=== PATIENT | female | born 1935 | race Caucasian/White ===

== ENCOUNTER 2016-06-22 15:07 | Emergency (ER) | payer MEDICARE ==
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
[2016-06-22 16:13] VITALS: BP 116/70; PULSE 70; O2SAT 95
== END 2016-06-22 16:12 | disposition home or self-care (01) ==
LOC: ED 15:07
DX: R10.13 Epigastric pain (principal); R11.2 Nausea with vomiting, unspecified; Z79.899 Other long term (current) drug therapy
CPT/HCPCS: 99282

== ENCOUNTER 2016-07-18 21:16 | Emergency (ER) | payer MEDICARE ==
[2016-07-18] MEDS ORDERED: ROCEPHIN 1 Gm-D5w 50 ml Bag** 50 ML IV ONE ×2 (22:07→22:30)
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
[2016-07-18] MEDS ORDERED: Sodium Chloride 0.9% 1000 ML 1,000 ML IV SCH (22:15)
[2016-07-18] MEDS ORDERED: GI COCKTAIL 60ML (Belladonn/Phenobarb/Lidoc PO ONE (22:19)
[2016-07-18] MEDS ORDERED: PROTONIX 40 MG IV IV ONE ×2 (22:19→22:28)
[2016-07-18] MEDS ORDERED: Ativan 2 MG/1 ML VIAL IV ONE (22:21)
[2016-07-18] MEDS ORDERED: Ativan 2 MG/1 ML VIAL ONE (22:28)
[2016-07-18] MEDS ORDERED: MAALOX ES 30 ML UNIT DOSE ONE (22:29)
[2016-07-18] MEDS ORDERED: Sodium Chloride 0.9% 1000 ML 1,000 ML ONE (22:29)
[2016-07-18] MEDS ORDERED: XYLOCAINE HCl Viscous ONE (22:29)
[2016-07-18] MEDS ORDERED: Donnatol Liquid ONE (22:30)
[2016-07-18 22:40] LABS: BASOPHIL % 0.4 % (0.0-0.4); Eosinophil % 1.4 % (0.00-5.0); Lymphocytes % 30.6 % (24.0-44.0); Mean Cell Volume 92.2 fl (78-100); Mean Corpuscular Hemoglobin 28.7 pg (26-32); Mean Platelet Volume 9.8 fl (6-9.5); Monocytes % 8.6 % (0.0-12.0); Platelet Count 230 K/mm3 (150-450); Red Cell Distribution Width 15.4 % (11.5-14.0); White Blood Count 5.7 K/mm3 (4.0-10.5)
[2016-07-18 22:58] LABS: Carbon Dioxide 26.7 mEq/L (21-32)
[2016-07-18 23:07] LABS: Potassium 4.2 mEq/L (3.5-5.1)
[2016-07-18 23:10] LABS: ANION GAP 15.5 MEQ/L (5-15)
[2016-07-19 00:09] VITALS: BP 135/78; PULSE 75; O2SAT 94
--- NOTE | 2016-07-19 09:18 | XRAY ---
Indication: Short of breath. Comparison: May 30, 2016 Portable chest unchanged again with scattered bilateral atelectasis/scarring greatest in the lung bases. No focal infiltrate, consolidation, or large effusion. Heart is not enlarged. Bony thorax intact again with osteopenia and degenerative changes. Comparison: Stable nonacute chest again with chronic features.
== END 2016-07-18 23:58 | disposition home or self-care (01) ==
LOC: ED 21:16
DX: J20.9 Acute bronchitis, unspecified (principal); F41.9 Anxiety disorder, unspecified; I10 Essential (primary) hypertension; E11.9 Type 2 diabetes mellitus without complications; J44.9 Chronic obstructive pulmonary disease, unspecified; E78.00 Pure hypercholesterolemia, unspecified; J43.9 Emphysema, unspecified; R05 Cough
CPT/HCPCS: 36000; 36415; 71010; 80048; 82150; 83690; 85025; 96360; 96361; 96365; 96374; 96375; 99283; J0696; J2060

== ENCOUNTER 2017-01-14 18:47 | Emergency (ER) | payer MEDICARE ==
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
[2017-01-14 20:09] LABS: Collection Type CLEAN CATCH
[2017-01-14 20:10] LABS: ADD URINE CULTURE? NO (NO); Bilirubin NEGATIVE (NEGATIVE); Blood NEGATIVE Ery/ul (0-5); COMPLETE URINE MICROSCOPIC? NO; Glucose NEGATIVE (NEGATIVE); Leukocyte Esterase NEGATIVE (NEGATIVE)
[2017-01-14 20:16] LABS: BASOPHIL % 0.5 % (0.0-0.4); Eosinophil % 0.9 % (0.00-5.0); Lymphocytes % 41.2 % (24.0-44.0); Mean Cell Volume 91.4 fl (78-100); Mean Corpuscular Hemoglobin 28.8 pg (26-32); Mean Platelet Volume 9.4 fl (6-9.5); Monocytes % 14.4 % (0.0-12.0); Platelet Count 191 K/mm3 (150-450); Red Blood Count 4.44 M/mm3 (4.1-5.4); Red Cell Distribution Width 15.5 % (11.5-14.0); White Blood Count 4.4 K/mm3 (4.0-10.5)
[2017-01-14 20:50] LABS: ALBUMIN 3.7 g/dL (3.4-5.0); ANION GAP 11.9 MEQ/L (5-15); BILIRUBIN,TOTAL 0.3 mg/dL (0.2-1.0); Carbon Dioxide 27.4 mEq/L (21-32); Potassium 3.9 mEq/L (3.5-5.1); Total Protein 7.1 gm/dL (6.4-8.2)
[2017-01-14 22:19] VITALS: BP 125/75; PULSE 74; O2SAT 100
== END 2017-01-14 22:18 | disposition home or self-care (01) ==
LOC: ED 18:47
DX: E86.0 Dehydration (principal); N19 Unspecified kidney failure; E11.9 Type 2 diabetes mellitus without complications; I10 Essential (primary) hypertension; F41.9 Anxiety disorder, unspecified; E03.9 Hypothyroidism, unspecified; Z79.899 Other long term (current) drug therapy; E05.90 Thyrotoxicosis, unspecified without thyrotoxic crisis or storm
CPT/HCPCS: 36415; 80053; 81002; 83605; 83880; 84484; 85025; 99283

== ENCOUNTER 2017-07-03 13:11 | Emergency (ER) | payer MEDICARE ==
[2017-07-03] MEDS ORDERED: MOTRIN 600 MG PO ONE (14:01)
[2017-07-03] MEDS ORDERED: MOTRIN 600 MG ONE (14:08)
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
[2017-07-03 14:24] LABS: BASOPHIL % 0.4 % (0.0-0.4); Basophil (Absolute #) 0.02 (0-0.4); Eosinophil % 1.6 % (0.00-5.0); Eosinophil (Absolute #) 0.09 (0-0.5); Granulocyte Absolute (ANC) 3.25 (1.4-6.9); Granulocytes % 59.2 % (36.0-66.0); Hematocrit 40.5 % (35-47); Hemoglobin 12.6 gm/dl (12.0-16.0); Lymphocyte (Absolute #) 1.64 (1.0-4.6); Lymphocytes % 29.9 % (24.0-44.0); Mean Cell Volume 93.3 fl (78-100); Mean Corpuscular Hgb Concent. 31.1 g/dl (32-36); Mean Platelet Volume 8.9 fl (6-9.5); Monocyte (Absolute #) 0.49 (0.0-1.3); Monocytes % 8.9 % (0.0-12.0); Platelet Count 194 K/mm3 (150-450); Red Blood Count 4.34 M/mm3 (4.1-5.4); White Blood Count 5.5 K/mm3 (4.0-10.5)
--- NOTE | 2017-07-03 14:53 | XRAY ---
Indication: Knee pain and weakness. No known injury. Comparison: None 2 views of the right lower leg demonstrates mild knee degenerative changes reported separately. No other bony, articular, or soft tissue abnormalities.
--- NOTE | 2017-07-03 14:57 | XRAY ---
Indication: Knee pain and weakness. No known injury. Comparison: None 3 views of the right knee demonstrates minimal medial degenerative joint space narrowing, tiny patellar spurring, and minimal posterior vascular calcifications. No other bony, articular, or soft tissue abnormalities.
[2017-07-03 14:58] LABS: ANION GAP 12.2 MEQ/L (5-15); Calcium 9.2 mg/dL (8.5-10.1); Carbon Dioxide 28.9 mEq/L (21-32); Creatinine 1 1.36 mg/dl (0.55-1.30); MAGNESIUM 1.9 mg/dL (1.8-2.4); Potassium 4.7 mEq/L (3.5-5.1); Uric Acid 6.7 mg/dL (2.6-6.0)
[2017-07-03 15:48] VITALS: BP 155/75; PULSE 64; O2SAT 94
== END 2017-07-03 16:04 | disposition home or self-care (01) ==
LOC: ED 13:11
DX: M10.9 Gout, unspecified (principal); Z79.899 Other long term (current) drug therapy
CPT/HCPCS: 36415; 73562; 73590; 80048; 83735; 84550; 85025; 99284; A9270-GY

== ENCOUNTER 2017-07-28 01:03 | Emergency (ER) | payer MEDICARE ==
--- NOTE | 2017-07-28 01:29 | ERPHSYRPT ---
- History of Present Illness Time Seen by Provider: 07/28/17 01:15 Source: patient Exam Limitations: no limitations Patient Subjective Stated Complaint: Anxiety and Shaking Triage Nursing Assessment: Pt presents to the ED with complaints of shaking from abdomen to toes. Pt states onset approximately 90 minutes prior to arrival. Pt states "I think I had a panic attack." Pt states hx of anxiety and states "this is the same thing." No distress noted, skin pwd, A&O x4. Physician History: FOR THE PAST 90 MINUTES PT HAS HAD SHAKINESS FROM THE ABDOMEN TO THE TOES. PT STATES SHE HAS HAD THIS BEFORE AND IT HAS BEEN DUE TO ANXIETY. PT DENIES CHEST PAIN, SHORTNESS OF AIR, FEVER, COUGH, ABDOMINAL PAIN, NAUSEA, VOMITING, WEAKNESS , NUMBNESS. Allergies/Adverse Reactions: codeine [Codeine] Allergy (Severe, Verified 07/03/17 13:33) Hives clarithromycin Allergy (Intermediate, Verified 07/03/17 13:33) Nausea Home Medications: Atorvastatin Calcium 20 mg PO HS 02/22/13 [History] Levothyroxine Sodium 50 Mcg [Synthroid 50 Mcg] 50 mcg PO DAILY 02/22/13 [ History] Losartan Potassium 50 mg [Cozaar 50 MG] 50 mg PO LUNCH 02/22/13 [History] Albuterol Sulfate [Proair Hfa] 2 puff IH QIDPRN PRN 06/05/14 [History] Clopidogrel Bisulfate 75 mg [PLAVIX 75 MG Tablet] 75 mg PO DAILY 10/12/14 [History] Bumetanide 0.5 mg PO DAILY 04/06/16 [History] Mirtazapine 15 mg PO HS 04/06/16 [History] Ranitidine HCl 150 mg PO BID 07/18/16 [History] Alprazolam 1 mg [Xanax 1 mg] 1 mg PO BID 11/07/16 [History] Denosumab 60 mg [Prolia 60 mg Injection] 1 units SQ UD 05/14/17 [History] PANTOPRAZOLE 40 mg Tablet [Protonix 40MG Tablet] 1 tab PO DAILY 05/14/17 [ History] Pioglitazone HCl [Actos] 1 tab PO DAILY 05/14/17 [History] Hx Tetanus, Diphtheria Vaccination/Date Given: No Hx Influenza Vaccination/Date Given: Yes Hx Pneumococcal Vaccination/Date Given: No Immunizations Up to Date: No - Review of Systems Constitutional: No Fever Respiratory: No Cough, No Dyspnea Cardiac: No Chest Pain Abdominal/Gastrointestinal: No Abdominal Pain, No Nausea, No Vomiting Neurological: Other (SHAKINESS), No Focal Weakness, No Sensory Changes Psychological: Anxiety All Other Systems: Reviewed and Negative - Past Medical History Pertinent Past Medical History: Yes Neurological History: Stroke ENT History: Cataracts Cardiac History: High Cholesterol, Hypertension Respiratory History: COPD, Emphysema Endocrine Medical History: Diabetes Type II, Hyperthyroidism Musculoskeletal History: Arthritis, Osteoporosis GI Medical History: Ulcer, Other History: No Pertinent History Psycho-Social History: Anxiety, Depression Female Reproductive Disorders: No Pertinent History Other Medical History: Pt stated she "never had a blockage in my neck, it was a sun stroke years ago". bronchitis - Past Surgical History Past Surgical History: Yes Neuro Surgical History: No Pertinent History Cardiac: No Pertinent History Respiratory: No Pertinent History Gastrointestinal: No Pertinent History Genitourinary: No Pertinent History Musculoskeletal: No Pertinent History Female Surgical History: Tubal Ligation Other Surgical History: Bladder sx et cataract sx - Social History Smoking Status: Former smoker How long have you smoked: 42 Exposure to second hand smoke: Yes Alcohol Use: None Drug Use: none Patient Lives Alone: No - Female History Hx Now: No - Nursing Vital Signs Nursing Vital Signs: Initial Vital Signs Temperature 97.6 F 07/28/17 01:16 Pulse Rate 85 07/28/17 01:16 Respiratory Rate 20 07/28/17 01:16 Blood Pressure 164/85 07/28/17 01:16 O2 Sat by Pulse Oximetry 93 L 07/28/17 01:16 Pain Scale Pain Intensity 0 - Physical Exam General Appearance: alert, anxiety Eye Exam: PERRL/EOMI Ears, Nose, Throat Exam: TMs normal, pharynx normal, moist mucous membranes Neck Exam: normal inspection Respiratory Exam: lungs clear Cardiovascular Exam: normal heart sounds Gastrointestinal/Abdomen Exam: soft, normal bowel sounds Back Exam: normal range of motion Extremity Exam: normal range of motion Neurologic Exam: alert, cooperative, sensation nml, other (NO BABINSKI PRESENT) , No motor deficits, No motor weakness Skin Exam: warm, dry SpO2 Interpretation: normal SpO2: 93 Oxygen Delivery: Room Air - Course Nursing assessment & vital signs reviewed: Yes Ordered Tests: Active Orders 24 hr Category Date Time Status CBC W DIFF Stat Lab 07/28/17 01:42 Completed CMP Stat Lab 07/28/17 01:42 Completed CULTURE,URINE Stat Lab 07/28/17 01:42 Received MAGNESIUM Stat Lab 07/28/17 01:42 Completed T4 Stat Lab 07/28/17 01:42 Received TSH [TSH, 3RD Generation] Stat Lab 07/28/17 01:42 Received UA W/ MICROSCOPIC Stat Lab 07/28/17 01:42 Completed Medication Summary Discontinued Medications Generic Name Dose Route Start Last Admin Trade Name Freq PRN Reason Stop Dose Admin Ceftriaxone Sodium 1,000 mg 07/28/17 02:21 Rocephin 1000 Mg Inj IM 07/28/17 02:22 STAT ONE Diazepam 5 mg 07/28/17 01:23 07/28/17 01:36 Valium 5 Mg PO 07/28/17 01:24 5 mg STAT ONE Administration Diazepam Confirm 07/28/17 01:36 Valium 5 Mg Administered 07/28/17 01:37 Dose 5 mg .ROUTE .Pumpic-MED ONE Lab/Rad Data: Laboratory Result Diagrams 07/28/17 01:42 07/28/17 01:42 Laboratory Results 07/28/17 07/28/17 07/28/17 Range/Units 01:42 01:42 01:42 WBC 5.3 (4.0-10.5) K/mm3 RBC 4.24 (4.1-5.4) M/mm3 Hgb 12.3 (12.0-16.0) gm/dl Hct 39.5 (35-47) % MCV 93.2 (78-100) fl MCH 29.0 (26-32) pg MCHC 31.1 L (32-36) g/dl RDW 15.5 H (11.5-14.0) % Plt Count 246 (150-450) K/mm3 MPV 9.2 (6-9.5) fl Gran % 56.4 (36.0-66.0) % Lymphocytes % 32.0 (24.0-44.0) % Monocytes % 8.6 (0.0-12.0) % Eosinophils % 2.6 (0.00-5.0) % Basophils % 0.4 (0.0-0.4) % Basophils # 0.02 (0-0.4) Sodium 138 (136-145) mEq/L Potassium 4.9 (3.5-5.1) mEq/L Chloride 105 (98-107) mEq/L Carbon Dioxide 27.4 (21-32) mEq/L Anion Gap 10.9 (5-15) MEQ/L BUN 29 H (9-20) mg/dL Creatinine 1.78 H (0.55-1.30) mg/dl Estimated GFR 29 ML/MIN Glucose 123 H (70-110) MG/DL Calcium 8.8 (8.5-10.1) mg/dL Magnesium 2.4 (1.8-2.4) mg/dL Total Bilirubin 0.30 (0.2-1.0) mg/dL AST 21 (15-37) U/L ALT 25 (12-78) U/L Alkaline Phosphatase 79 (46-116) U/L Serum Total Protein 7.3 (6.4-8.2) gm/dL Albumin 3.3 L (3.4-5.0) g/dL Ur Collection Type VOID Urine Color YELLOW (YELLOW) Urine Appearance HAZY (CLEAR) Urine pH 6.0 (5-6) Ur Specific [place] 1.015 (1.005-1.025) Urine Protein NEGATIVE (Negative) Urine Ketones NEGATIVE (NEGATIVE) Urine Blood TRACE NON-HEM (0-5) Jaylan/ul Urine Nitrite NEGATIVE (NEGATIVE) Urine Bilirubin NEGATIVE (NEGATIVE) Urine Urobilinogen NORMAL (0-1) mg/dL Ur Leukocyte Esterase 1+ (NEGATIVE) Urine Microscopic RBC 10-15 (0-2) /HPF Urine Microscopic WBC 2-5 (0-5) /HPF Ur Epithelial Cells MANY (FEW) /HPF Urine Bacteria MODERATE (NEGATIVE) /HPF Hyaline Casts 0-2 (0-2) /LPF Urine Mucus SLIGHT (NEGATIVE) /HPF Urine Culture Reflexed YES (NO) Urine Glucose NEGATIVE (NEGATIVE) mg/dL Specimen Received 07/28/17 0150 - Departure Time of Disposition: 02:29 Departure Disposition: Home Clinical Impression: UTI, ANXIETY Condition: Stable Critical Care Time: No Referrals: SUAD CELESTE [Primary Care Provider] - Instructions: Urinary Tract Infection, Adult (DC) Additional Instructions: FOLLOW UP WITH PRIVATE DOCTOR TOMORROW. Prescriptions: Smz/Tmp Ds Tablet [Bactrim Ds Tablet] 1 udtab PO BID #20 tablet
[2017-07-28] MEDS: Valium 5 MG PO ONE (01:36)
[2017-07-28] MEDS ORDERED: Valium 5 MG ONE (01:36)
[2017-07-28 01:47] LABS: BASOPHIL % 0.4 % (0.0-0.4); Basophil (Absolute #) 0.02 (0-0.4); Eosinophil % 2.6 % (0.00-5.0); Eosinophil (Absolute #) 0.14 (0-0.5); Granulocyte Absolute (ANC) 3.01 (1.4-6.9); Granulocytes % 56.4 % (36.0-66.0); Hematocrit 39.5 % (35-47); Hemoglobin 12.3 gm/dl (12.0-16.0); Lymphocyte (Absolute #) 1.71 (1.0-4.6); Mean Cell Volume 93.2 fl (78-100); Mean Corpuscular Hgb Concent. 31.1 g/dl (32-36); Mean Platelet Volume 9.2 fl (6-9.5); Monocyte (Absolute #) 0.46 (0.0-1.3); Monocytes % 8.6 % (0.0-12.0); Platelet Count 246 K/mm3 (150-450); Red Blood Count 4.24 M/mm3 (4.1-5.4); Red Cell Distribution Width 15.5 % (11.5-14.0); White Blood Count 5.3 K/mm3 (4.0-10.5)
[2017-07-28 02:06] LABS: Appearance HAZY (CLEAR); Bilirubin NEGATIVE (NEGATIVE); Glucose NEGATIVE (NEGATIVE); Ketones NEGATIVE (NEGATIVE); Leukocyte Esterase 1+ (NEGATIVE); Nitrite NEGATIVE (NEGATIVE); Protein,Urine Dip NEGATIVE (Negative); Specific Gravity 1.015 (1.005-1.025); Urobilinogen NORMAL mg/dL (0-1)
[2017-07-28 02:07] LABS: Bacteria MODERATE /HPF (NEGATIVE); Blood TRACE NON-HEM Ery/ul (0-5); Epithelial Cells MANY /HPF (FEW); Hyaline Casts 0-2 /LPF (0-2); Mucus SLIGHT /HPF (NEGATIVE)
[2017-07-28 02:14] LABS: ALBUMIN 3.3 g/dL (3.4-5.0); ANION GAP 10.9 MEQ/L (5-15); BILIRUBIN,TOTAL 0.3 mg/dL (0.2-1.0); Calcium 8.8 mg/dL (8.5-10.1); Carbon Dioxide 27.4 mEq/L (21-32); Creatinine 1 1.78 mg/dl (0.55-1.30); MAGNESIUM 2.4 mg/dL (1.8-2.4); Potassium 4.9 mEq/L (3.5-5.1); Total Protein 7.3 gm/dL (6.4-8.2)
[2017-07-28 02:25] LABS: T4 9.5 UG/DL (4.7-13.3); TSH, 3RD Generation 6.183 mIU/L (0.358-3.740)
[2017-07-28] MEDS ORDERED: Rocephin 1000 MG INJ ONE (02:33)
[2017-07-28] MEDS ORDERED: XYLOCAINE 1% HCL 20 ML MDV ONE (02:33)
[2017-07-28] MEDS: Rocephin 1000 MG INJ IM ONE (02:39)
[2017-07-28 03:13] VITALS: BP 133/75; PULSE 68; O2SAT 96
== END 2017-07-28 03:10 | disposition home or self-care (01) ==
LOC: ED 01:03
DX: N39.0 Urinary tract infection, site not specified (principal); F41.9 Anxiety disorder, unspecified; I10 Essential (primary) hypertension; E11.9 Type 2 diabetes mellitus without complications; E05.90 Thyrotoxicosis, unspecified without thyrotoxic crisis or storm; E78.00 Pure hypercholesterolemia, unspecified; M81.0 Age-related osteoporosis without current pathological fracture; Z79.899 Other long term (current) drug therapy; Z86.73 Personal history of transient ischemic attack (TIA), and cerebral infarction without residual deficits
CPT/HCPCS: 36415; 80053; 81000; 83735; 84436; 84443; 85025; 87086; 96372; 99284; J0696; A9270-GY

== ENCOUNTER 2018-01-07 17:06 | Emergency (ER) | payer MEDICARE ==
[2018-01-07 17:15] VITALS: BP 142/70; PULSE 86; O2SAT 94
--- NOTE | 2018-01-07 17:43 | ERPHSYRPT ---
- History of Present Illness Time Seen by Provider: 01/07/18 17:38 Source: patient, family Exam Limitations: no limitations Patient Subjective Stated Complaint: PT states "I have part of my hearing aid in my left ear. I did not know it was in there until I went to the Dr. today and they found it and tried to get it out and couldn't so they told me to go to the er and get it flushed." Triage Nursing Assessment: Pt alert and oriented X 3, skin pwd Pt ambulates with an upright steady gait, able to speak in clear full sentences. no apparent respiratory distress. Physician History: The patient is an 82-year-old female with her daughter complaining that she may have a piece of her hearing aid stuck in her left ear. She was at her primary care doctor earlier and the doctor attempted to take out a white piece of material that was seen in her left ear. The doctor was unable to remove it and asked the patient to come to the ER for this with removal of the foreign body. The patient has no pain. The doctor told her that the white tip of her hearing aid was stuck in her ear. The patient shows me her hearing aid and it still has the white tip on the hearing aid. Timing/Duration: this morning ENT Location: ear (L) Modifying Factors: Improves With: nothing Associated Symptoms: denies symptoms Allergies/Adverse Reactions: codeine [Codeine] Allergy (Severe, Verified 11/25/17 14:53) Hives clarithromycin Allergy (Intermediate, Verified 11/25/17 14:53) Nausea Home Medications: Atorvastatin Calcium 20 mg PO HS 02/22/13 [History] Levothyroxine Sodium 50 Mcg [Synthroid 50 Mcg] 50 mcg PO DAILY 02/22/13 [ History] Losartan Potassium 50 mg [Cozaar 50 MG] 50 mg PO LUNCH 02/22/13 [History] Albuterol Sulfate [Proair Hfa] 2 puff IH QIDPRN PRN 06/05/14 [History] Clopidogrel Bisulfate 75 mg [PLAVIX 75 MG Tablet] 75 mg PO DAILY 10/12/14 [History] Bumetanide 0.5 mg PO DAILY 04/06/16 [History] Mirtazapine 15 mg PO HS 04/06/16 [History] raNITIdine HCl [Ranitidine HCl] 150 mg PO BID 07/18/16 [History] Alprazolam 1 mg [Xanax 1 mg] 1 mg PO BID 11/07/16 [History] Denosumab 60 mg [Prolia 60 mg Injection] 1 units SQ UD 05/14/17 [History] PANTOPRAZOLE 40 mg Tablet [Protonix 40MG Tablet] 1 tab PO DAILY 05/14/17 [ History] Pioglitazone HCl [Actos] 1 tab PO DAILY 05/14/17 [History] Atorvastatin Calcium 20 mg PO DAILY 11/25/17 [History] Ergocalciferol (Vitamin D2) [Vitamin D] 50,000 unit PO WEEKLY 11/25/17 [History] Potassium Chloride 10 Meq Tab* [Klor Con 10 MEQ] 10 meq PO DAILY 11/25/17 [ History] Hx Tetanus, Diphtheria Vaccination/Date Given: Yes Hx Influenza Vaccination/Date Given: Yes Hx Pneumococcal Vaccination/Date Given: Yes Immunizations Up to Date: Yes - Review of Systems Constitutional: No Fever, No Chills Eyes: No Symptoms Ears, Nose, & Throat: No Symptoms Respiratory: No Cough, No Dyspnea Cardiac: No Chest Pain, No Edema, No Syncope Abdominal/Gastrointestinal: No Abdominal Pain, No Nausea, No Vomiting, No Diarrhea Genitourinary Symptoms: No Dysuria Musculoskeletal: No Back Pain, No Neck Pain Skin: No Rash Neurological: No Dizziness, No Focal Weakness, No Sensory Changes Psychological: No Symptoms Endocrine: No Symptoms Hematologic/Lymphatic: No Symptoms Immunological/Allergic: No Symptoms All Other Systems: Reviewed and Negative - Past Medical History Pertinent Past Medical History: Yes Neurological History: Alzheimer's Disease ENT History: Cataracts Cardiac History: High Cholesterol, Hypertension Respiratory History: COPD Endocrine Medical History: Diabetes Type II Musculoskeletal History: Arthritis, Osteoporosis GI Medical History: Ulcer, Other History: No Pertinent History Psycho-Social History: Anxiety, Depression, Panic Disorder Female Reproductive Disorders: No Pertinent History Other Medical History: Pt stated she "never had a blockage in my neck, it was a sun stroke years ago". bronchitis - Past Surgical History Past Surgical History: Yes Neuro Surgical History: No Pertinent History Cardiac: No Pertinent History Respiratory: No Pertinent History Gastrointestinal: No Pertinent History Genitourinary: No Pertinent History Musculoskeletal: No Pertinent History Female Surgical History: Tubal Ligation Other Surgical History: Bladder sx et cataract sx - Social History Smoking Status: Former smoker How long have you smoked: 42 Exposure to second hand smoke: Yes Alcohol Use: None Drug Use: none Patient Lives Alone: No - Female History Hx Now: No - Nursing Vital Signs Nursing Vital Signs: Initial Vital Signs Temperature 99.5 F 01/07/18 17:11 Pulse Rate 86 01/07/18 17:11 Respiratory Rate 18 01/07/18 17:11 Blood Pressure 142/70 01/07/18 17:11 O2 Sat by Pulse Oximetry 94 L 01/07/18 17:11 Pain Scale Pain Intensity 0 - Physical Exam General Appearance: no apparent distress, alert Eye Exam: bilateral eye: normal inspection Ear Exam: bilateral ear: TM normal (Examination of bilateral eardrums the significant only for some moderate scar tissue formation that appears white. No foreign body is found in either ear. The left ear canal is very clean. There is some mild cerumen in the right ear canal.) Nasal Exam: normal inspection Throat Exam: pharynx normal, moist mucus membranes, No tonsillar exudate Neck Exam: supple Cardiovascular/Respiratory Exam: normal breath sounds, regular rate/rhythm Abdominal Exam: non-tender, soft Neurologic Exam: alert, oriented x 3, sensation nml, No motor deficits Skin Exam: normal color, warm, dry SpO2 Interpretation: normal SpO2: 94 Oxygen Delivery: Room Air - Departure Time of Disposition: 17:41 Departure Disposition: Home Clinical Impression: Normal ear exam Condition: Stable Critical Care Time: No Referrals: SUAD CELESTE [Primary Care Provider] - Additional Instructions: You do not have any foreign body in her left ear canal. You do have scar tissue that appears white on your eardrum. Follow-up with your primary medical doctor as needed.
== END 2018-01-07 17:56 | disposition home or self-care (01) ==
LOC: ED 17:06
DX: Z04.8 Encounter for examination and observation for other specified reasons (principal); I10 Essential (primary) hypertension; E78.00 Pure hypercholesterolemia, unspecified; J44.9 Chronic obstructive pulmonary disease, unspecified; E11.9 Type 2 diabetes mellitus without complications; F41.8 Other specified anxiety disorders; Z79.899 Other long term (current) drug therapy
CPT/HCPCS: 99283

== ENCOUNTER 2018-01-11 14:52 | Emergency (ER) | payer MEDICARE ==
[2018-01-11 15:20] VITALS: O2SAT 93
--- NOTE | 2018-01-11 15:22 | ERPHSYRPT ---
- History of Present Illness Time Seen by Provider: 01/11/18 15:10 Source: patient, family Exam Limitations: no limitations Physician History: The patient is an 82-year-old female with her daughter complaining that she has been weak and shaky for 2 weeks. She denies nausea, vomiting, or diarrhea. However, she complains of some constipation over the past few days. She denies fever or chills. She was taken off her blood pressure medicine a few days ago because she has been having a nagging cough. She was told to take albuterol MDI after each cough to see if that would help. Her past medical history is significant for GERD, diabetes, high cholesterol, and hypothyroidism. Timing/Duration: week(s) (2) Severity: mild Modifying Factors: Improves With: nothing Associated Symptoms: weakness, No nausea, No vomiting, No abdominal pain, No shortness of breath, No malaise Allergies/Adverse Reactions: codeine [Codeine] Allergy (Severe, Verified 01/11/18 15:20) Hives clarithromycin Allergy (Intermediate, Verified 01/11/18 15:20) Nausea Home Medications: Atorvastatin Calcium 20 mg PO HS 02/22/13 [History] Levothyroxine Sodium 50 Mcg [Synthroid 50 Mcg] 50 mcg PO DAILY 02/22/13 [ History] Albuterol Sulfate [Proair Hfa] 2 puff IH QIDPRN PRN 06/05/14 [History] Clopidogrel Bisulfate 75 mg [PLAVIX 75 MG Tablet] 75 mg PO DAILY 10/12/14 [History] Bumetanide 0.5 mg PO DAILY 04/06/16 [History] Mirtazapine 15 mg PO HS 04/06/16 [History] raNITIdine HCl [Ranitidine HCl] 150 mg PO BID 07/18/16 [History] Alprazolam 1 mg [Xanax 1 mg] 1 mg PO BID 11/07/16 [History] Denosumab 60 mg [Prolia 60 mg Injection] 1 units SQ UD 05/14/17 [History] PANTOPRAZOLE 40 mg Tablet [Protonix 40MG Tablet] 1 tab PO DAILY 05/14/17 [ History] Pioglitazone HCl [Actos] 1 tab PO DAILY 05/14/17 [History] Atorvastatin Calcium 20 mg PO DAILY 11/25/17 [History] Ergocalciferol (Vitamin D2) [Vitamin D] 50,000 unit PO WEEKLY 11/25/17 [History] Potassium Chloride 10 Meq Tab* [Klor Con 10 MEQ] 10 meq PO DAILY 11/25/17 [ History] Hx Tetanus, Diphtheria Vaccination/Date Given: Yes Hx Influenza Vaccination/Date Given: Yes Hx Pneumococcal Vaccination/Date Given: Yes - Review of Systems Constitutional: Weakness, No Fever, No Chills Eyes: No Symptoms Ears, Nose, & Throat: No Symptoms Respiratory: No Cough, No Dyspnea Cardiac: No Chest Pain, No Edema, No Syncope Abdominal/Gastrointestinal: No Abdominal Pain, No Nausea, No Vomiting, No Diarrhea Genitourinary Symptoms: No Dysuria Musculoskeletal: No Back Pain, No Neck Pain Skin: No Rash Neurological: No Dizziness, No Focal Weakness, No Sensory Changes Psychological: No Symptoms Endocrine: No Symptoms Hematologic/Lymphatic: No Symptoms Immunological/Allergic: No Symptoms All Other Systems: Reviewed and Negative - Past Medical History Pertinent Past Medical History: Yes Neurological History: Alzheimer's Disease ENT History: Cataracts Cardiac History: High Cholesterol, Hypertension Respiratory History: COPD Endocrine Medical History: Diabetes Type II Musculoskeletal History: Arthritis, Osteoporosis GI Medical History: Ulcer, Other History: No Pertinent History Psycho-Social History: Anxiety, Depression, Panic Disorder Female Reproductive Disorders: No Pertinent History Other Medical History: Pt stated she "never had a blockage in my neck, it was a sun stroke years ago". bronchitis - Past Surgical History Past Surgical History: Yes Neuro Surgical History: No Pertinent History Cardiac: No Pertinent History Respiratory: No Pertinent History Gastrointestinal: No Pertinent History Genitourinary: No Pertinent History Musculoskeletal: No Pertinent History Female Surgical History: Tubal Ligation Other Surgical History: Bladder sx et cataract sx - Social History Smoking Status: Former smoker How long have you smoked: 42 Exposure to second hand smoke: Yes Alcohol Use: None Drug Use: none Patient Lives Alone: No - Nursing Vital Signs Nursing Vital Signs: Initial Vital Signs Temperature 98.6 F 01/11/18 15:10 Pulse Rate 82 01/11/18 15:10 Respiratory Rate 18 01/11/18 15:10 Blood Pressure 121/78 01/11/18 15:10 O2 Sat by Pulse Oximetry 93 L 01/11/18 15:10 Pain Scale Pain Intensity 0 - Physical Exam General Appearance: no apparent distress, alert Eye Exam: PERRL/EOMI, eyes nml inspection Ears, Nose, Throat Exam: normal ENT inspection, TMs normal, pharynx normal, moist mucous membranes Neck Exam: normal inspection, non-tender, supple, full range of motion Respiratory Exam: normal breath sounds, lungs clear, No respiratory distress Cardiovascular Exam: regular rate/rhythm, normal heart sounds, normal peripheral pulses Gastrointestinal/Abdomen Exam: soft, normal bowel sounds, No tenderness, No mass Pelvic Exam: not done Rectal Exam: not done Back Exam: normal inspection, normal range of motion, No CVA tenderness, No vertebral tenderness Extremity Exam: normal inspection, normal range of motion, pelvis stable Neurologic Exam: alert, oriented x 3, cooperative, normal mood/affect, nml cerebellar function, nml station & gait, sensation nml, No motor deficits Skin Exam: normal color, warm, dry, No rash Lymphatic Exam: No adenopathy SpO2 Interpretation: normal - Course EKG Interpreted by Me: RATE, Sinus Rhythm, NORMAL AXIS, NORMAL INTERVALS, NORMAL QRS, NORMAL ST-T - Radiology Exams Chest X-ray Interpretation: Interpreted by me, Reviewed by me, Negative (stable nonacute chest. comp 2V chest 11/29/17.) Ordered Tests: Active Orders 24 hr Category Date Time Status Clean Catch Urine Specimen STAT Care 01/11/18 15:27 Active EKG-ER Only STAT Care 01/11/18 15:27 Active IV Insertion STAT Care 01/11/18 15:27 Active CHEST 2 VIEWS (PA AND LAT) Stat Exams 01/11/18 15:27 Taken CBC W DIFF Stat Lab 01/11/18 15:50 Completed CMP Stat Lab 01/11/18 15:50 Completed Lactic Acid Stat Lab 01/11/18 15:45 Completed TROPONIN Q3H Lab 01/11/18 15:50 Completed TROPONIN Q3H Lab 01/11/18 18:30 Ordered TROPONIN Q3H Lab 01/11/18 21:30 Ordered TROPONIN Q3H Lab 01/12/18 00:30 Ordered TROPONIN Q3H Lab 01/12/18 03:30 Ordered UA W/RFX UR CULTURE Stat Lab 01/11/18 16:44 Completed Medication Summary Discontinued Medications Generic Name Dose Route Start Last Admin Trade Name Freq PRN Reason Stop Dose Admin Sodium Chloride 500 mls @ 999 mls/hr 01/11/18 15:27 01/11/18 15:59 Sodium Chloride 0.9% 1000 Ml IV 01/11/18 15:57 999 mls/hr .Q31M STA Administration Sodium Chloride Confirm 01/11/18 15:58 Sodium Chloride 0.9% 1000 Ml Administered 01/11/18 15:59 Dose 1,000 mls @ ud .ROUTE .STK-MED ONE Lab/Rad Data: Laboratory Result Diagrams 01/11/18 15:50 01/11/18 15:50 Laboratory Results 01/11/18 01/11/18 01/11/18 Range/Units 16:44 15:50 15:50 WBC (4.0-10.5) K/mm3 RBC (4.1-5.4) M/mm3 Hgb (12.0-16.0) gm/dl Hct (35-47) % MCV (78-100) fl MCH (26-32) pg MCHC (32-36) g/dl RDW (11.5-14.0) % Plt Count (150-450) K/mm3 MPV (6-9.5) fl Gran % (36.0-66.0) % Eos # (Auto) (0-0.5) Absolute Lymphs (auto) (1.0-4.6) Absolute Monos (auto) (0.0-1.3) Lymphocytes % (24.0-44.0) % Monocytes % (0.0-12.0) % Eosinophils % (0.00-5.0) % Basophils % (0.0-0.4) % Absolute Granulocytes (1.4-6.9) Basophils # (0-0.4) Sodium 142 (137-145) mmol/L Potassium 4.9 (3.5-5.1) mmol/L Chloride 106 (98-107) mmol/L Carbon Dioxide 28 (22-30) mmol/L Anion Gap 13.8 (5-15) MEQ/L BUN 25 H (7-17) mg/dL Creatinine 1.36 H (0.52-1.04) mg/dL Estimated GFR 39.5 ML/MIN Glucose 122 H (74-106) mg/dL Lactic Acid (0.4-2.0) Calcium 9.4 (8.4-10.2) mg/dL Total Bilirubin 0.40 (0.2-1.3) mg/dL AST 22 (14-36) U/L ALT 18 (0-35) U/L Alkaline Phosphatase 65 (38-126) U/L Troponin I < 0.012 (0.000-0.034) ng/mL Serum Total Protein 7.0 (6.3-8.2) g/dL Albumin 4.1 (3.5-5.0) g/dL Ur Collection Type VOID Urine Color LT.YELLOW (YELLOW) Urine Appearance CLEAR (CLEAR) Urine pH 5.0 (5-6) Ur Specific [place] 1.010 (1.005-1.025) Urine Protein NEGATIVE (Negative) Urine Ketones NEGATIVE (NEGATIVE) Urine Blood NEGATIVE (0-5) Jayaln/ul Urine Nitrite NEGATIVE (NEGATIVE) Urine Bilirubin NEGATIVE (NEGATIVE) Urine Urobilinogen NORMAL (0-1) mg/dL Ur Leukocyte Esterase NEGATIVE (NEGATIVE) Urine Culture Reflexed NO (NO) Urine Glucose NEGATIVE (NEGATIVE) mg/dL Specimen Received 01/11/18 1645 01/11/18 01/11/18 Range/Units 15:50 15:45 WBC 6.0 (4.0-10.5) K/mm3 RBC 4.31 (4.1-5.4) M/mm3 Hgb 12.7 (12.0-16.0) gm/dl Hct 40.3 (35-47) % MCV 93.5 (78-100) fl MCH 29.5 (26-32) pg MCHC 31.5 L (32-36) g/dl RDW 15.5 H (11.5-14.0) % Plt Count 246 (150-450) K/mm3 MPV 9.6 H (6-9.5) fl Gran % 59.2 (36.0-66.0) % Eos # (Auto) 0.16 (0-0.5) Absolute Lymphs (auto) 1.78 (1.0-4.6) Absolute Monos (auto) 0.46 (0.0-1.3) Lymphocytes % 29.9 (24.0-44.0) % Monocytes % 7.7 (0.0-12.0) % Eosinophils % 2.7 (0.00-5.0) % Basophils % 0.5 (0.0-0.4) % Absolute Granulocytes 3.52 (1.4-6.9) Basophils # 0.03 (0-0.4) Sodium (137-145) mmol/L Potassium (3.5-5.1) mmol/L Chloride (98-107) mmol/L Carbon Dioxide (22-30) mmol/L Anion Gap (5-15) MEQ/L BUN (7-17) mg/dL Creatinine (0.52-1.04) mg/dL Estimated GFR ML/MIN Glucose (74-106) mg/dL Lactic Acid 1.1 (0.4-2.0) Calcium (8.4-10.2) mg/dL Total Bilirubin (0.2-1.3) mg/dL AST (14-36) U/L ALT (0-35) U/L Alkaline Phosphatase (38-126) U/L Troponin I (0.000-0.034) ng/mL Serum Total Protein (6.3-8.2) g/dL Albumin (3.5-5.0) g/dL Ur Collection Type Urine Color (YELLOW) Urine Appearance (CLEAR) Urine pH (5-6) Ur Specific [place] (1.005-1.025) Urine Protein (Negative) Urine Ketones (NEGATIVE) Urine Blood (0-5) Jaylan/ul Urine Nitrite (NEGATIVE) Urine Bilirubin (NEGATIVE) Urine Urobilinogen (0-1) mg/dL Ur Leukocyte Esterase (NEGATIVE) Urine Culture Reflexed (NO) Urine Glucose (NEGATIVE) mg/dL Specimen Received - Progress Progress: unchanged Counseled pt/family regarding: lab results, diagnosis, rad results - Departure Time of Disposition: 17:01 Departure Disposition: Home Clinical Impression: Weakness Condition: Stable Critical Care Time: No Referrals: SUAD CELESTE [Primary Care Provider] - Additional Instructions: You have a mild two-week episode of weakness. All of your laboratory results and your chest x-ray were normal. You were given fluids by IV in the ER. Use your "puffer" if you are wheezing. Stay well hydrated and eat a balanced diet. Get plenty of rest. Follow-up with your primary medical doctor as needed.
[2018-01-11] MEDS ORDERED: Sodium Chloride 0.9% 1000 ML 1,000 ML ONE (15:58)
[2018-01-11 15:59] LABS: BASOPHIL % 0.5 % (0.0-0.4); Basophil (Absolute #) 0.03 (0-0.4); Eosinophil % 2.7 % (0.00-5.0); Eosinophil (Absolute #) 0.16 (0-0.5); Granulocyte Absolute (ANC) 3.52 (1.4-6.9); Granulocytes % 59.2 % (36.0-66.0); Hematocrit 40.3 % (35-47); Hemoglobin 12.7 gm/dl (12.0-16.0); Lymphocyte (Absolute #) 1.78 (1.0-4.6); Lymphocytes % 29.9 % (24.0-44.0); Mean Cell Volume 93.5 fl (78-100); Mean Corpuscular Hemoglobin 29.5 pg (26-32); Mean Corpuscular Hgb Concent. 31.5 g/dl (32-36); Mean Platelet Volume 9.6 fl (6-9.5); Monocyte (Absolute #) 0.46 (0.0-1.3); Monocytes % 7.7 % (0.0-12.0); Platelet Count 246 K/mm3 (150-450); Red Blood Count 4.31 M/mm3 (4.1-5.4); Red Cell Distribution Width 15.5 % (11.5-14.0)
[2018-01-11 16:16] LABS: ALBUMIN 4.1 g/dL (3.5-5.0); ANION GAP 13.8 MEQ/L (5-15); BILIRUBIN,TOTAL 0.4 mg/dL (0.2-1.3); Calcium 9.4 mg/dL (8.4-10.2); Creatinine 1 1.36 mg/dL (0.52-1.04); Potassium 4.9 mmol/L (3.5-5.1)
[2018-01-11 16:48] LABS: Appearance CLEAR (CLEAR); Bilirubin NEGATIVE (NEGATIVE); Blood NEGATIVE Ery/ul (0-5); Glucose NEGATIVE (NEGATIVE); Ketones NEGATIVE (NEGATIVE); Leukocyte Esterase NEGATIVE (NEGATIVE); Nitrite NEGATIVE (NEGATIVE); Protein,Urine Dip NEGATIVE (Negative); Urobilinogen NORMAL mg/dL (0-1)
[2018-01-11 17:10] VITALS: BP 130/83; PULSE 69
--- NOTE | 2018-01-11 21:37 | XRAY ---
Indication: Occult blood. Abdominal pain and diarrhea. Comparison: November 29, 2017. PA/lateral chest demonstrates stable bilateral fibrosis/scarring. No focal infiltrate, consolidation, or large effusion. Heart is not enlarged. Stable small hiatal hernia. Bony thorax intact again with mild osteopenia, degenerative changes, and remote multilevel compression deformities. Impression: Stable nonacute chest with chronic features.
== END 2018-01-11 17:10 | disposition home or self-care (01) ==
LOC: ED 14:52
DX: R53.1 Weakness (principal); I10 Essential (primary) hypertension; G30.9 Alzheimer's disease, unspecified; F02.80 Dementia in other diseases classified elsewhere, unspecified severity, without behavioral disturbance, psychotic disturbance, mood disturbance, and anxiety; E78.00 Pure hypercholesterolemia, unspecified; J44.9 Chronic obstructive pulmonary disease, unspecified; E11.9 Type 2 diabetes mellitus without complications; M81.0 Age-related osteoporosis without current pathological fracture; F41.8 Other specified anxiety disorders; K21.9 Gastro-esophageal reflux disease without esophagitis; E03.9 Hypothyroidism, unspecified; Z79.899 Other long term (current) drug therapy
CPT/HCPCS: 36000; 36415; 71046; 80053; 81002; 83605; 84484; 85025; 93005; 96360; 99284

== ENCOUNTER 2018-03-01 16:14 | Inpatient (IN) | payer MEDICARE ==
[2018-03-01] MEDS ORDERED: DUONEB 0.5-3 MG/3 ml Neb IH ONE (17:11)
[2018-03-01] MEDS ORDERED: Sodium Chloride 0.9% 1000 ML 1,000 ML ONE (19:33)
[2018-03-01] MEDS ORDERED: ROCEPHIN 1 Gm-D5w 50 ml Bag** 1 G/50 ML IVPB IV ONE (19:35)
[2018-03-01] MEDS ORDERED: ROCEPHIN 1 Gm-D5w 50 ml Bag** 1 G/50 ML IVPB IV SCH (20:00)
[2018-03-01] MEDS: Sodium Chloride 0.9% 1000 ML 1,000 ML IV SCH (20:23)
--- NOTE | 2018-03-01 21:00 | XRAY ---
Indication: Cough and short of breath. Comparison: January 11, 2018. Portable chest again demonstrates minimal scattered fibrosis/scarring. No focal infiltrate, consolidation, or large effusion. Heart and mediastinal structures within normal limits for AP portable technique. Bony thorax intact again with mild osteopenia and degenerative changes. Impression: Nonacute chest with chronic features.
[2018-03-01] MEDS: solu-MEDROL 125 MG IV SCH (21:02)
[2018-03-01] MEDS: ceLEXa 20 MG PO SCH (21:57)
[2018-03-01] MEDS: XANAX 1 MG PO SCH (21:57)
[2018-03-01] MEDS: PLAVIX 75 MG Tablet PO SCH (21:57)
[2018-03-01] MEDS: ZOCOR 20MG PO SCH (21:58)
[2018-03-01] MEDS: Klor Con 10 MEQ PO SCH (21:58)
[2018-03-01] MEDS: Tessalon Perles 100 MG PO PRN (21:58)
[2018-03-01 23:28] LABS: BASOPHIL % 0.5 % (0.0-0.4); Basophil (Absolute #) 0.03 (0-0.4); Eosinophil % 2.6 % (0.00-5.0); Eosinophil (Absolute #) 0.17 (0-0.5); Granulocyte Absolute (ANC) 4.02 (1.4-6.9); Granulocytes % 61.8 % (36.0-66.0); Hemoglobin 12.3 gm/dl (12.0-16.0); Lymphocyte (Absolute #) 1.78 (1.0-4.6); Lymphocytes % 27.4 % (24.0-44.0); Mean Cell Volume 93.1 fl (78-100); Mean Corpuscular Hemoglobin 29.4 pg (26-32); Mean Corpuscular Hgb Concent. 31.5 g/dl (32-36); Mean Platelet Volume 9.1 fl (6-9.5); Monocytes % 7.7 % (0.0-12.0); Platelet Count 249 K/mm3 (150-450); Red Blood Count 4.19 M/mm3 (4.1-5.4); Red Cell Distribution Width 14.8 % (11.5-14.0); White Blood Count 6.5 K/mm3 (4.0-10.5)
[2018-03-01 23:29] LABS: ALBUMIN 3.8 g/dL (3.5-5.0); ALKALINE PHOSPHATASE 74 U/L (38-126); BLOOD UREA NITROGEN 23 mg/dL (7-17); CHLORIDE 106 mmol/L (98-107); Carbon Dioxide 25 mmol/L (22-30); Creatinine 1 1.26 mg/dL (0.52-1.04); Glucose 211 mg/dL (74-106); NT PRO BNP 1280 pg/mL (0-1800); Potassium 4.3 mmol/L (3.5-5.1); SGOT/AST 22 U/L (14-36); SGPT/ALT 18 U/L (0-35); SODIUM 139 mmol/L (137-145); TROPONIN < 0.012 ng/mL (0.000-0.034); Total Protein 6.6 g/dL (6.3-8.2)
[2018-03-01] MEDS: DUONEB 0.5-3 MG/3 ml Neb IH SCH (23:32)
[2018-03-01] MEDS: REMERON 30 MG PO SCH (23:46)
[2018-03-02] MEDS: solu-MEDROL 125 MG IV SCH ×4 (02:10→21:18)
[2018-03-02] MEDS: DUONEB 0.5-3 MG/3 ml Neb IH SCH ×6 (03:38→23:37)
[2018-03-02 06:03] LABS: Hematocrit 37.2 % (35-47); Hemoglobin 11.7 gm/dl (12.0-16.0); Mean Cell Volume 93.7 fl (78-100); Mean Corpuscular Hgb Concent. 31.5 g/dl (32-36); Mean Platelet Volume 9.3 fl (6-9.5); Platelet Count 239 K/mm3 (150-450); Red Blood Count 3.97 M/mm3 (4.1-5.4); Red Cell Distribution Width 14.9 % (11.5-14.0); White Blood Count 7.7 K/mm3 (4.0-10.5)
[2018-03-02 06:05] LABS: Mean Corpuscular Hemoglobin 29.4 pg (26-32)
[2018-03-02 06:14] LABS: ALBUMIN 3.6 g/dL (3.5-5.0); ALKALINE PHOSPHATASE 81 U/L (38-126); ANION GAP 13.7 MEQ/L (5-15); BILIRUBIN,TOTAL < 0.10 mg/dL (0.2-1.3); BLOOD UREA NITROGEN 25 mg/dL (7-17); CHLORIDE 108 mmol/L (98-107); Calcium 8.6 mg/dL (8.4-10.2); Carbon Dioxide 21 mmol/L (22-30); Creatinine 1 1.17 mg/dL (0.52-1.04); Glucose 290 mg/dL (74-106); Potassium 4.5 mmol/L (3.5-5.1); SGOT/AST 20 U/L (14-36); SGPT/ALT 18 U/L (0-35); SODIUM 139 mmol/L (137-145); Total Protein 6.4 g/dL (6.3-8.2)
--- NOTE | 2018-03-02 08:05 | PCM.HP ---
History of Present Illness - Chief Complaint Chief Complaint: COPD History of Present Illness: is a 82 year old female who presented to the ER with a complaint of cough, wheezing and sputum production. She reports increased cough for the last 2 months, worse in the last few days. yellow/green sputum production, no fever, short of breath at times. no chest pain. - Review of Systems Constitutional: No Fever, No Chills Ears, Nose, & Throat: No Symptoms Respiratory: Cough, Short Of Breath Cardiac: No Chest Pain, No Edema, No Syncope Abdominal/Gastrointestinal: No Abdominal Pain, No Nausea, No Vomiting, No Diarrhea Skin: No Rash Neurological: No Dizziness, No Focal Weakness, No Sensory Changes All Other Systems: Reviewed and Negative Medications & Allergies Home Medications: Home Medication List Atorvastatin Calcium 20 mg PO HS 02/22/13 [History Confirmed 03/01/18] Levothyroxine Sodium 50 Mcg [Synthroid 50 Mcg] 50 mcg PO DAILY 02/22/13 [ History Confirmed 03/01/18] Albuterol Sulfate [Proair Hfa] 2 puff IH QIDPRN PRN 06/05/14 [History Confirmed 03/01/18] Clopidogrel Bisulfate 75 mg [PLAVIX 75 MG Tablet] 75 mg PO EVENING MEAL [History Confirmed 03/01/18] Mirtazapine 30 mg PO HS 04/06/16 [History Confirmed 03/01/18] raNITIdine HCl [Ranitidine HCl] 150 mg PO BID 07/18/16 [History Confirmed ] Alprazolam 1 mg [Xanax 1 mg] 1 mg PO BID 11/07/16 [History Confirmed 03/01] PANTOPRAZOLE 40 mg Tablet [Protonix 40MG Tablet] 1 tab PO DAILY 05/14/17 [ History Confirmed 03/01/18] Pioglitazone HCl [Actos] 1 tab PO DAILY 05/14/17 [History Confirmed 03/01/18] Ergocalciferol (Vitamin D2) [Vitamin D] 50,000 unit PO WEEKLY 11/25/17 [History Confirmed 03/01/18] Potassium Chloride 10 Meq Tab* [Klor Con 10 MEQ] 10 meq PO EVENING MEAL 11/25 [History Confirmed 03/01/18] Bumetanide 1 mg [Bumex 1 mg] 1 mg PO DAILY 03/01/18 [History Confirmed ] Citalopram Hydrobromide [Citalopram HBr] 10 mg PO HS 03/01/18 [History Confirmed 03/01/18] Losartan Potassium 50 mg PO DAILY 03/01/18 [History Confirmed 03/01/18] Allergies/Adverse Reactions: Allergies Allergy/AdvReac Type Severity Reaction Status Date / Time codeine [Codeine] Allergy Severe Hives Verified 01/11/18 15:20 clarithromycin Allergy Intermediate Nausea Verified 01/11/18 15:20 - Past Medical History Past Medical History: Yes Neurological History: Alzheimer's Disease ENT History: Cataracts Cardiac History: High Cholesterol, Hypertension Respiratory History: Bronchitis, COPD Endocrine Medical History: Diabetes Type II Musculoskelatal History: Arthritis, Osteoporosis GI Medical History: GERD, Ulcer, Other History: No Pertinent History Pyscho-Social History: Anxiety, Depression, Panic Disorder Reproductive Disorders: No Pertinent History Comment: Pt stated she "never had a blockage in my neck, it was a sun stroke years ago". bronchitis - Female History Are you now?: No (N) - Past Surgical History Past Surgical History: Yes Neuro Surgical History: No Pertinent History Cardiac History: No Pertinent History Respiratory Surgery: No Pertinent History GI Surgical History: No Pertinent History Genitourinary Surgical Hx: No Pertinent History Musculskeletal Surgical Hx: No Pertinent History Female Surgical History: Tubal Ligation Other Surgical History: Bladder sx et cataract sx - Social History Smoking Status: Former smoker How long have you smoked: 42 Exposure to second hand smoke: No Alcohol: None Drug Use: none - Physical Exam Vital Signs: Vital Signs - 24 hr Temp Pulse Resp BP Pulse Ox 03/02/18 07:08 97.8 F 80 22 120/60 92 L 03/02/18 06:48 87 24 94 L 03/02/18 04:10 97.7 F 84 20 122/58 92 L 03/02/18 04:00 20 03/02/18 03:38 84 20 92 L 03/02/18 00:00 18 03/01/18 23:49 98.4 F 77 18 116/59 92 L 03/01/18 23:34 75 20 92 L 03/01/18 20:06 71 20 92 L 03/01/18 20:00 20 03/01/18 19:55 97.6 F 74 20 119/59 94 L 03/01/18 19:16 97.6 F 74 20 119/59 94 L Oxygen-Last 24 hours O2 Percentage 5 Liters = 40% O2 Percentage 2 Liters = 28% O2 Percentage 2 Liters = 28% O2 Percentage 2 Liters = 28% Oxygen Flowrate (L/min)-RT 8 General Appearance: no apparent distress, alert Neurologic Exam: alert, oriented x 3 Neck Exam: normal inspection, non-tender, supple Respiratory Exam: prolonged expirations, wheezing Cardiovascular Exam: regular rate/rhythm, normal heart sounds, normal peripheral pulses Gastrointestinal/Abdomen Exam: soft, normal bowel sounds, No tenderness, No mass Back Exam: normal inspection, normal range of motion, No CVA tenderness, No vertebral tenderness Extremity Exam: normal inspection, normal range of motion, pelvis stable Skin Exam: normal color, warm, dry, No rash Results - Labs Lab/Micro Results: Accuchecks Date 03/02/18 Date 03/01/18 Time 05:00 Time 21:30 Accucheck Value: 70 Lab Results-Last 24 Hours 03/01/18 03/01/18 03/02/18 Range/Units 17:30 17:30 05:53 WBC 6.5 7.7 (4.0-10.5) K/mm3 RBC 4.19 3.97 L (4.1-5.4) M/mm3 Hgb 12.3 11.7 L (12.0-16.0) gm/dl Hct 39.0 37.2 (35-47) % MCV 93.1 93.7 (78-100) fl MCH 29.4 29.4 (26-32) pg MCHC 31.5 L 31.5 L (32-36) g/dl RDW 14.8 H 14.9 H (11.5-14.0) % Plt Count 249 239 (150-450) K/mm3 MPV 9.1 9.3 (6-9.5) fl Gran % 61.8 (36.0-66.0) % Eos # (Auto) 0.17 (0-0.5) Absolute Lymphs (auto) 1.78 (1.0-4.6) Absolute Monos (auto) 0.50 (0.0-1.3) Lymphocytes % 27.4 (24.0-44.0) % Monocytes % 7.7 (0.0-12.0) % Eosinophils % 2.6 (0.00-5.0) % Basophils % 0.5 (0.0-0.4) % Absolute Granulocytes 4.02 (1.4-6.9) Basophils # 0.03 (0-0.4) Sodium 139 (137-145) mmol/L Potassium 4.3 (3.5-5.1) mmol/L Chloride 106 (98-107) mmol/L Carbon Dioxide 25 (22-30) mmol/L Anion Gap 8.0 (5-15) MEQ/L BUN 23 H (7-17) mg/dL Creatinine 1.26 H (0.52-1.04) mg/dL Estimated GFR 43.1 ML/MIN Glucose 211 H (74-106) mg/dL Calcium 9.0 (8.4-10.2) mg/dL Total Bilirubin 0.30 (0.2-1.3) mg/dL AST 22 (14-36) U/L ALT 18 (0-35) U/L Alkaline Phosphatase 74 (38-126) U/L Troponin I < 0.012 (0.000-0.034) ng/mL NT-Pro-B Natriuret Pep 1280 (0-1800) pg/mL Serum Total Protein 6.6 (6.3-8.2) g/dL Albumin 3.8 (3.5-5.0) g/dL 03/02/18 Range/Units 05:53 WBC (4.0-10.5) K/mm3 RBC (4.1-5.4) M/mm3 Hgb (12.0-16.0) gm/dl Hct (35-47) % MCV (78-100) fl MCH (26-32) pg MCHC (32-36) g/dl RDW (11.5-14.0) % Plt Count (150-450) K/mm3 MPV (6-9.5) fl Gran % (36.0-66.0) % Eos # (Auto) (0-0.5) Absolute Lymphs (auto) (1.0-4.6) Absolute Monos (auto) (0.0-1.3) Lymphocytes % (24.0-44.0) % Monocytes % (0.0-12.0) % Eosinophils % (0.00-5.0) % Basophils % (0.0-0.4) % Absolute Granulocytes (1.4-6.9) Basophils # (0-0.4) Sodium 139 (137-145) mmol/L Potassium 4.5 (3.5-5.1) mmol/L Chloride 108 H (98-107) mmol/L Carbon Dioxide 21 L (22-30) mmol/L Anion Gap 13.7 (5-15) MEQ/L BUN 25 H (7-17) mg/dL Creatinine 1.17 H (0.52-1.04) mg/dL Estimated GFR 47.0 ML/MIN Glucose 290 H (74-106) mg/dL Calcium 8.6 (8.4-10.2) mg/dL Total Bilirubin < 0.10 L (0.2-1.3) mg/dL AST 20 (14-36) U/L ALT 18 (0-35) U/L Alkaline Phosphatase 81 (38-126) U/L Troponin I (0.000-0.034) ng/mL NT-Pro-B Natriuret Pep (0-1800) pg/mL Serum Total Protein 6.4 (6.3-8.2) g/dL Albumin 3.6 (3.5-5.0) g/dL Accuchecks Date 03/02/18 Date 03/01/18 Time 05:00 Time 21:30 Accucheck Value: 70 - Radiology Impressions Radiology Exams & Impressions: Radiology Procedures Category Date Time Status CHEST 1 VIEW (PORTABLE) Routine Exams 03/01/18 18:54 Completed - Other Procedures and Tests Respiratory Therapy 03/01/18 19:40 Oxygen NASAL CANNULA 2 lpm 03/01/18 23:00 Respiratory Therapy Assessment DAILY 03/02/18 07:00 Peak Expiratory Flow Rate DAILY Assessment/Plan (1) COPD exacerbation Current Visit: No Status: Acute Assessment & Plan: on IV rocephin/zithromax due to increased sputum production. IV solumedrol and nebulizer therapy. Code(s): J44.1 - CHRONIC OBSTRUCTIVE PULMONARY DISEASE W (ACUTE) EXACERBATION
[2018-03-02] MEDS: SYNTHROID 50 MCG PO SCH (09:53)
[2018-03-02] MEDS: Zithromax 500 MG/ 250 ML NaCl Premix 500 MG/250 ML IVPB IV SCH (09:53)
[2018-03-02] MEDS: Protonix 40MG Tablet PO SCH (09:54)
[2018-03-02] MEDS: XANAX 1 MG PO SCH ×2 (09:54→21:39)
[2018-03-02] MEDS: Pepcid 20 MG PO SCH ×2 (09:54→21:39)
[2018-03-02] MEDS: Cozaar 50 MG PO SCH (09:54)
[2018-03-02] MEDS: BUMEX 1 MG PO SCH (09:54)
[2018-03-02] MEDS: NovoLOG Insulin SQ PRN ×4 (09:55→21:40)
[2018-03-02] MEDS ORDERED: NON-FORMULARY ITEM (Ranitidine Hcl [Ranitidine Hcl] 150 MG) PO SCH (10:00)
[2018-03-02] MEDS: Sodium Chloride 0.9% 1000 ML 1,000 ML IV SCH (14:26)
[2018-03-02] MEDS: Klor Con 10 MEQ PO SCH (17:56)
[2018-03-02] MEDS: PLAVIX 75 MG Tablet PO SCH (17:56)
[2018-03-02] MEDS: Tessalon Perles 100 MG PO PRN (18:00)
[2018-03-02] MEDS ORDERED: PLAVIX 75 MG Tablet PO SCH (18:00)
[2018-03-02] MEDS: ceLEXa 20 MG PO SCH (21:39)
[2018-03-02] MEDS: REMERON 30 MG PO SCH (21:39)
[2018-03-02] MEDS: ROCEPHIN 1 Gm-D5w 50 ml Bag** 1 G/50 ML IVPB IV SCH (21:39)
[2018-03-02] MEDS: ZOCOR 20MG PO SCH (21:39)
[2018-03-03] MEDS: solu-MEDROL 125 MG IV SCH ×4 (01:56→20:07)
[2018-03-03] MEDS: Tessalon Perles 100 MG PO PRN ×3 (02:01→22:01)
[2018-03-03] MEDS: DUONEB 0.5-3 MG/3 ml Neb IH SCH ×6 (03:32→23:24)
[2018-03-03 05:53] LABS: Hematocrit 34.3 % (35-47); Hemoglobin 10.9 gm/dl (12.0-16.0); Mean Corpuscular Hemoglobin 29.5 pg (26-32); Mean Corpuscular Hgb Concent. 31.8 g/dl (32-36); Mean Platelet Volume 9.5 fl (6-9.5); Platelet Count 254 K/mm3 (150-450); Red Blood Count 3.69 M/mm3 (4.1-5.4); Red Cell Distribution Width 14.9 % (11.5-14.0); White Blood Count 19.3 K/mm3 (4.0-10.5)
[2018-03-03 06:22] LABS: ALBUMIN 3.6 g/dL (3.5-5.0); ALKALINE PHOSPHATASE 80 U/L (38-126); ANION GAP 12.5 MEQ/L (5-15); BILIRUBIN,TOTAL < 0.10 mg/dL (0.2-1.3); BLOOD UREA NITROGEN 30 mg/dL (7-17); CHLORIDE 108 mmol/L (98-107); Calcium 8.5 mg/dL (8.4-10.2); Carbon Dioxide 22 mmol/L (22-30); Creatinine 1 1.05 mg/dL (0.52-1.04); Glucose 240 mg/dL (74-106); Potassium 4.5 mmol/L (3.5-5.1); SGOT/AST 19 U/L (14-36); SGPT/ALT 17 U/L (0-35); SODIUM 138 mmol/L (137-145); Total Protein 6.3 g/dL (6.3-8.2)
--- NOTE | 2018-03-03 08:07 | PCM.NOTE ---
Date and Time: 03/03/18804 Subjective Assessment: patient still coughing a great deal today, wheezing and short of breath. Objective Exam General Appearance: no apparent distress, alert Skin Exam: normal color, warm, dry Respiratory Exam: prolonged expirations, wheezing Cardiovascular Exam: regular rate/rhythm, normal heart sounds Gastrointestinal/Abdomen Exam: soft, No tenderness, No mass Extremity Exam: normal inspection, normal range of motion OBJECTIVE DATA Vital Signs: Vital Signs - 24 hr Temp Pulse Resp BP Pulse Ox 03/03/18 07:42 98.2 F 84 22 109/53 91 L 03/03/18 06:46 94 H 22 91 L 03/03/18 04:24 97.8 F 95 H 20 116/59 89 L 03/03/18 04:00 22 03/03/18 03:33 94 H 22 89 L 03/03/18 00:00 22 03/02/18 23:41 98.3 F 96 H 22 113/53 93 L 03/02/18 23:37 94 H 22 92 L 03/02/18 20:00 22 03/02/18 19:42 97.7 F 97 H 26 H 128/62 94 L 03/02/18 19:27 98 H 20 92 L 03/02/18 16:00 97.5 F 101 H 20 97/48 95 03/02/18 14:40 91 H 18 92 L 03/02/18 12:00 97.7 F 105 H 22 90/51 94 L 03/02/18 11:31 97.7 F 105 H 22 90/51 94 L 03/02/18 10:48 100 H 22 94 L Oxygen-Last 24 hours O2 Percentage 5 Liters = 40% O2 Percentage 4 Liters = 36% O2 Percentage 4 Liters = 36% O2 Percentage 4 Liters = 36% Oxygen Flowrate (L/min)-RT 8 Oxygen Flowrate (L/min)-RT 8 Pain Assessment - Last Documented Pain Intensity 0 Pain Scale Used 0-10 Pain Scale,FLACC Intake and Output: Intake & Output 02/28/18 03/01/18 03/02/18 03/03/18 11:59 11:59 11:59 11:59 Intake Total 1370 3238 Output Total 1200 1750 Balance 170 1488 Weight 79.6 kg 80.1 kg Lab Results: Accuchecks Date 03/02/18 Date 03/02/18 Date 03/02/18 Time 21:50 Time 16:30 Time 11:30 Accucheck Value: 276 Accucheck Value: 341 Accucheck Value: 334 Lab Results-Last 24 Hours 03/02/18 03/03/18 03/03/18 Range/Units 08:00 05:17 05:17 WBC 19.3 H (4.0-10.5) K/mm3 RBC 3.69 L (4.1-5.4) M/mm3 Hgb 10.9 L (12.0-16.0) gm/dl Hct 34.3 L (35-47) % MCV 93.0 (78-100) fl MCH 29.5 (26-32) pg MCHC 31.8 L (32-36) g/dl RDW 14.9 H (11.5-14.0) % Plt Count 254 (150-450) K/mm3 MPV 9.5 (6-9.5) fl Sodium 138 (137-145) mmol/L Potassium 4.5 (3.5-5.1) mmol/L Chloride 108 H (98-107) mmol/L Carbon Dioxide 22 (22-30) mmol/L Anion Gap 12.5 (5-15) MEQ/L BUN 30 H (7-17) mg/dL Creatinine 1.05 H (0.52-1.04) mg/dL Estimated GFR 53.2 ML/MIN Glucose 240 H (74-106) mg/dL Hemoglobin A1c 6.32 H (4.5-6.0) % Calcium 8.5 (8.4-10.2) mg/dL Total Bilirubin < 0.10 L (0.2-1.3) mg/dL AST 19 (14-36) U/L ALT 17 (0-35) U/L Alkaline Phosphatase 80 (38-126) U/L Serum Total Protein 6.3 (6.3-8.2) g/dL Albumin 3.6 (3.5-5.0) g/dL Radiology Exams: Radiology Procedures Category Date Time Status CHEST 1 VIEW (PORTABLE) Routine Exams 03/01/18 18:54 Completed Multi-Disciplinary Progress Notes: Multi-Disciplinary Progress Notes 03/02/18 12:49 Case Management Note by Louise Wood DISCHARGE PLANS REVIEWED WITH BOTH THE PATIENT AND HER DAUGHTERS. SHE LIVES AT HOME WITH HER SON AND DAUGHTER IN LAW. SHE IS INDEPENDENT OF ALL ADL'S. SHE IS CADDO AND HAS A LEFT HEARING AID. SHE WEARS A FULL SET OF DENTURES. SHE DOES HAVE TO USE A STRAW TO DRINK FLUIDS. MS MYRICK HAS HOME OXYGEN AND NEGS AT HOME FROM [facility] [place], AND WEARS 2L NC PEN. SHE HAS A WALKER, CANE, A WHEELCHAIR, AND A DIABETIC TESTING DEVICE. MEDICARE OBSERVATION ([employer]) PAPERS WERE EXPLAINED, SIGNED, A COPY WAS LEFT WITH THE PATIENT, AND A COPY GIVEN TO LONA, PROCESS DEVELOPMENT CHEMIST TO PLACE IN THE PAPER CHART. WILL CONTINUE TO MONITOR FOR ALL D/C NEEDS. Initialized on 03/02/18 12:49 - END OF NOTE 03/02/18 08:20 Pharmacy Note by Lionel Harris Please be aware of possible drug interaction with Zithromax and Celexa. May prolong QT interval. Initialized on 03/02/18 08:20 - END OF NOTE Assessment/Plan (1) COPD exacerbation Current Visit: No Status: Acute Assessment & Plan: continue rocephin/zithromax, nebs and IV solu medrol. Code(s): J44.1 - CHRONIC OBSTRUCTIVE PULMONARY DISEASE W (ACUTE) EXACERBATION
[2018-03-03] MEDS: NovoLOG Insulin SQ PRN ×4 (08:11→22:01)
[2018-03-03] MEDS: Cozaar 50 MG PO SCH (09:49)
[2018-03-03] MEDS: Pepcid 20 MG PO SCH ×2 (09:49→22:00)
[2018-03-03] MEDS: BUMEX 1 MG PO SCH (09:49)
[2018-03-03] MEDS: SYNTHROID 50 MCG PO SCH (09:49)
[2018-03-03] MEDS: XANAX 1 MG PO SCH ×2 (09:49→23:50)
[2018-03-03] MEDS: Protonix 40MG Tablet PO SCH (09:49)
[2018-03-03] MEDS: Zithromax 500 MG/ 250 ML NaCl Premix 500 MG/250 ML IVPB IV SCH (10:03)
[2018-03-03] MEDS: Sodium Chloride 0.9% 1000 ML 1,000 ML IV SCH (11:24)
[2018-03-03] MEDS: PLAVIX 75 MG Tablet PO SCH (18:05)
[2018-03-03] MEDS: Klor Con 10 MEQ PO SCH (18:05)
[2018-03-03] MEDS: REMERON 30 MG PO SCH (22:00)
[2018-03-03] MEDS: ROCEPHIN 1 Gm-D5w 50 ml Bag** 1 G/50 ML IVPB IV SCH (22:00)
[2018-03-03] MEDS: ZOCOR 20MG PO SCH (22:00)
[2018-03-03] MEDS: ceLEXa 20 MG PO SCH (22:01)
[2018-03-04] MEDS: solu-MEDROL 125 MG IV SCH ×3 (02:40→22:42)
[2018-03-04] MEDS: Sodium Chloride 0.9% 1000 ML 1,000 ML IV SCH ×2 (02:43→21:29)
[2018-03-04] MEDS: DUONEB 0.5-3 MG/3 ml Neb IH SCH ×6 (03:24→23:44)
[2018-03-04 05:42] LABS: Granulocyte Absolute (ANC) 19.52 (1.4-6.9); Hematocrit 35.2 % (35-47); Hemoglobin 11.4 gm/dl (12.0-16.0); Mean Cell Volume 92.6 fl (78-100); Mean Corpuscular Hgb Concent. 32.4 g/dl (32-36); Mean Platelet Volume 9.5 fl (6-9.5); Platelet Count 270 K/mm3 (150-450); Red Cell Distribution Width 15.3 % (11.5-14.0); White Blood Count 20.5 K/mm3 (4.0-10.5)
[2018-03-04 05:49] LABS: ANION GAP 12.9 MEQ/L (5-15); Calcium 8.2 mg/dL (8.4-10.2); Creatinine 1 1.05 mg/dL (0.52-1.04); Potassium 4.5 mmol/L (3.5-5.1)
[2018-03-04] MEDS: Spiriva 18 Mcg/Cap Inhaler IH SCH (08:34)
[2018-03-04 09:43] LABS: Monocyte 2 % (0.0-12.0)
[2018-03-04 09:49] LABS: BAND 2 % (0.0-2.0); Lymphocytes 4 % (24-44); Neutrophils 92 % (36.0-66.0); Platelet Estimate NORMAL (NORMAL); Total Cells Counted 100
[2018-03-04 09:59] LABS: ANISOCYTOSIS 1+; Toxic Granulation 1+
[2018-03-04] MEDS: XANAX 1 MG PO SCH ×2 (10:40→22:42)
[2018-03-04] MEDS: BUMEX 1 MG PO SCH (10:40)
[2018-03-04] MEDS: Pepcid 20 MG PO SCH ×2 (10:40→22:41)
[2018-03-04] MEDS: Protonix 40MG Tablet PO SCH (10:40)
[2018-03-04] MEDS: SYNTHROID 50 MCG PO SCH (10:40)
[2018-03-04] MEDS: CLARITIN 10 MG PO SCH (10:40)
[2018-03-04] MEDS: Zithromax 500 MG/ 250 ML NaCl Premix 500 MG/250 ML IVPB IV SCH (10:41)
[2018-03-04] MEDS: Singulair 10 MG PO SCH (10:41)
[2018-03-04] MEDS: Cozaar 50 MG PO SCH (10:41)
[2018-03-04] MEDS: Tessalon Perles 100 MG PO PRN ×2 (14:52→22:51)
[2018-03-04] MEDS: NovoLOG Insulin SQ PRN ×2 (17:23→22:45)
[2018-03-04] MEDS: PLAVIX 75 MG Tablet PO SCH (17:24)
[2018-03-04] MEDS: Klor Con 10 MEQ PO SCH (17:24)
[2018-03-04] MEDS: ceLEXa 20 MG PO SCH (22:40)
[2018-03-04] MEDS: ROCEPHIN 1 Gm-D5w 50 ml Bag** 1 G/50 ML IVPB IV SCH (22:41)
[2018-03-04] MEDS: REMERON 30 MG PO SCH (22:41)
[2018-03-04] MEDS: ZOCOR 20MG PO SCH (22:42)
[2018-03-05] MEDS: DUONEB 0.5-3 MG/3 ml Neb IH SCH ×3 (03:40→11:01)
[2018-03-05 05:42] LABS: Granulocyte Absolute (ANC) 14.45 (1.4-6.9); Hematocrit 33.1 % (35-47); Hemoglobin 10.6 gm/dl (12.0-16.0); Mean Cell Volume 92.5 fl (78-100); Mean Corpuscular Hemoglobin 29.6 pg (26-32); Mean Platelet Volume 9.4 fl (6-9.5); Platelet Count 250 K/mm3 (150-450); Red Blood Count 3.58 M/mm3 (4.1-5.4); Red Cell Distribution Width 15.6 % (11.5-14.0); White Blood Count 15.6 K/mm3 (4.0-10.5)
[2018-03-05 05:59] LABS: ALBUMIN 3.4 g/dL (3.5-5.0); ANION GAP 12.8 MEQ/L (5-15); BILIRUBIN,TOTAL 0.2 mg/dL (0.2-1.3); Calcium 7.8 mg/dL (8.4-10.2); Creatinine 1 0.99 mg/dL (0.52-1.04); Potassium 4.8 mmol/L (3.5-5.1)
[2018-03-05] MEDS: solu-MEDROL 125 MG IV SCH (06:10)
[2018-03-05] MEDS: Spiriva 18 Mcg/Cap Inhaler IH SCH (06:25)
[2018-03-05 06:27] LABS: BAND 7 % (0.0-2.0); Lymphocytes 3 % (24-44); Monocyte 2 % (0.0-12.0); Neutrophils 88 % (36.0-66.0); Platelet Estimate NORMAL (NORMAL); Total Cells Counted 100
--- NOTE | 2018-03-05 08:39 | PCM.DCORD ---
- Discharge Discharge Date: 03/05/18 Disposition: Home, Self-Care Condition: Stable Prescriptions: New Prednisone 10 mg [Deltasone 10 mg] 10 mg PO DAILY 15 Days #30 tablet Levofloxacin [Levaquin] 500 mg PO DAILY #7 tablet Continue Levothyroxine Sodium 50 Mcg [Synthroid 50 Mcg] 50 mcg PO DAILY Atorvastatin Calcium 20 mg PO HS Albuterol Sulfate [Proair Hfa] 2 puff IH QIDPRN PRN PRN Reason: Shortness Of Breath Clopidogrel Bisulfate 75 mg [PLAVIX 75 MG Tablet] 75 mg PO EVENING MEAL Mirtazapine 30 mg PO HS raNITIdine HCl [Ranitidine HCl] 150 mg PO BID Alprazolam 1 mg [Xanax 1 mg] 1 mg PO BID PANTOPRAZOLE 40 mg Tablet [Protonix 40MG Tablet] 1 tab PO DAILY Pioglitazone HCl [Actos] 1 tab PO DAILY Potassium Chloride 10 Meq Tab* [Klor Con 10 MEQ] 10 meq PO EVENING MEAL Ergocalciferol (Vitamin D2) [Vitamin D] 50,000 unit PO WEEKLY Bumetanide 1 mg [Bumex 1 mg] 1 mg PO DAILY Citalopram Hydrobromide [Citalopram HBr] 10 mg PO HS Losartan Potassium 50 mg PO DAILY Additional Instructions: Requires 2L O2 at all times for COPD and Hypoxia. Pt will need Home Health coverage Follow up with: LORENZO GATES [Primary Care Provider] - 1 Week Forms: Work/School Release Form
--- NOTE | 2018-03-05 08:53 | DS ---
DISCHARGE DIAGNOSES: 1) ACUTE EXACERBATION OF CHRONIC OBSTRUCTIVE PULMONARY DISEASE. 2) HYPOXIA. HOSPITAL COURSE: The patient is an 82 year-old white female who had trouble with increasing shortness of breath and presented herself to the emergency room where she was diagnosed with the above problems. She was wheezing diffusely and had minimal air movement. She was admitted to the hospital and started on IV fluids, nebulizer treatments for oxygen and IV antibiotics of Rocephin and Zithromax. The patient initially had a white count of 6,500, hemoglobin 12.3, PLT count 249,000. With the steroids and antibiotics however the white blood cell count christopher to greater than 20,000. After we decreased the steroids it reduced to 16,600 however 7 bands present. Therefore we made an adjustment of her antibiotics from Rocephin and Zithromax to Levaquin prior to her discharge home. By the morning of 03/05/2018, the patient's chest was clear to auscultation although she was dyspneic with speaking and somewhat difficult with ambulation. We are now therefore seeking to send her home with visiting nurses and possible PT as well. She will be in the care of her daughters who are quite attentive and stayed with her basically throughout her stay. The patient will be sent home on Levaquin 500 mg daily for 7 days and prednisone 30 mg for five days, 20 for five days and 10 for five days. She has been arranged to have home oxygen and been asked to purchase an oxygen sensor meter to monitor herself at home. We are giving her an appointment to see me in the office in the next week. She is to return or call us if she has any further problems in the interim. She will continue to use her usual medications as listed in the history of present illness previously.
[2018-03-05] MEDS: Pepcid 20 MG PO SCH (08:58)
[2018-03-05] MEDS: BUMEX 1 MG PO SCH (08:58)
[2018-03-05] MEDS: XANAX 1 MG PO SCH (08:58)
[2018-03-05] MEDS: Cozaar 50 MG PO SCH (08:58)
[2018-03-05] MEDS: Protonix 40MG Tablet PO SCH (08:58)
[2018-03-05] MEDS: Zithromax 500 MG/ 250 ML NaCl Premix 500 MG/250 ML IVPB IV SCH (08:58)
[2018-03-05] MEDS: SYNTHROID 50 MCG PO SCH (08:58)
[2018-03-05] MEDS: CLARITIN 10 MG PO SCH (08:58)
[2018-03-05] MEDS: Singulair 10 MG PO SCH (08:58)
[2018-03-05 11:09] VITALS: PULSE 105; O2SAT 94
[2018-03-05 12:04] VITALS: BP 147/82
== END 2018-03-05 12:50 | disposition home health service (06) | DRG 192 ==
LOC: ED 16:14 → MED SURG 19:00 → OBSVTOIN 03-03 08:05
PROVIDERS: ADMIT Family Medicine; ATTEND Family Medicine
DX: J44.1 Chronic obstructive pulmonary disease with (acute) exacerbation (principal); R09.02 Hypoxemia; G30.9 Alzheimer's disease, unspecified; F02.80 Dementia in other diseases classified elsewhere, unspecified severity, without behavioral disturbance, psychotic disturbance, mood disturbance, and anxiety; E78.00 Pure hypercholesterolemia, unspecified; R06.02 Shortness of breath; J44.9 Chronic obstructive pulmonary disease, unspecified; M19.90 Unspecified osteoarthritis, unspecified site; M81.0 Age-related osteoporosis without current pathological fracture; K21.9 Gastro-esophageal reflux disease without esophagitis; F41.8 Other specified anxiety disorders; E11.9 Type 2 diabetes mellitus without complications; I10 Essential (primary) hypertension; F32.9 Major depressive disorder, single episode, unspecified; E03.9 Hypothyroidism, unspecified; Z79.899 Other long term (current) drug therapy; J45.909 Unspecified asthma, uncomplicated
CPT/HCPCS: 36415; 71045; 80048; 80053; 82962; 83036; 83880; 84484; 85025; 85027; 87040; 87070; 93268; 94150; 94640; 94760; 94762; 99285; J0456; J0696; J2930; A9270-GY; G0378

== ENCOUNTER 2018-04-17 16:42 | Emergency (ER) | payer MEDICARE ==
--- NOTE | 2018-04-17 17:02 | ERPHSYRPT ---
- History of Present Illness Time Seen by Provider: 04/17/18 17:01 Source: patient, family (daughter) Exam Limitations: no limitations Physician History: The patient is an 82-year-old female with her daughter complaining that she fell all walking across the floor 2 nights ago. She fell onto her left side causing bruising to her left hip and pain to her left rib cage. Her left hip does not hurt. Her left rib cage has been hurting. She denies shortness of breath. She did not lose consciousness. Her past medical history is significant for GERD, hypertension, hypothyroidism, high cholesterol, COPD, and diabetes. Occurred: days ago (2) Reason for Fall: lost balance, fell from standing pos Injuries/Pain Location: chest (left), lower extremity (left hip) Loss of Consciousness: no loss of consciousness Quality: stabbing Severity of Pain-Max: moderate Severity of Pain-Current: moderate Modifying Factors: Improves With: nothing Associated Symptoms (Fall): chest pain, No shortness of breath, No trouble walking Allergies/Adverse Reactions: codeine [Codeine] Allergy (Severe, Verified 01/11/18 15:20) Hives clarithromycin Allergy (Intermediate, Verified 01/11/18 15:20) Nausea Home Medications: Atorvastatin Calcium 20 mg PO HS 02/22/13 [History] Levothyroxine Sodium 50 Mcg [Synthroid 50 Mcg] 50 mcg PO DAILY 02/22/13 [ History] Clopidogrel Bisulfate 75 mg [PLAVIX 75 MG Tablet] 75 mg PO EVENING MEAL [History] Mirtazapine 30 mg PO HS 04/06/16 [History] raNITIdine HCl [Ranitidine HCl] 150 mg PO BID 07/18/16 [History] Alprazolam 1 mg [Xanax 1 mg] 1 mg PO BID 11/07/16 [History] PANTOPRAZOLE 40 mg Tablet [Protonix 40MG Tablet] 1 tab PO DAILY 05/14/17 [ History] Pioglitazone HCl [Actos] 1 tab PO DAILY 05/14/17 [History] Potassium Chloride 10 Meq Tab* [Klor Con 10 MEQ] 10 meq PO EVENING MEAL 11/25 [History] Bumetanide 1 mg [Bumex 1 mg] 1 mg PO DAILY 03/01/18 [History] Citalopram Hydrobromide [Citalopram HBr] 10 mg PO HS 03/01/18 [History] Losartan Potassium 50 mg PO DAILY 03/01/18 [History] Hx Tetanus, Diphtheria Vaccination/Date Given: Yes Hx Influenza Vaccination/Date Given: Yes Hx Pneumococcal Vaccination/Date Given: Yes - Review of Systems Constitutional: No Fever, No Chills Eyes: No Symptoms Ears, Nose, & Throat: No Symptoms Respiratory: No Cough, No Dyspnea Cardiac: Chest Pain, No Edema, No Syncope Abdominal/Gastrointestinal: No Abdominal Pain, No Nausea, No Vomiting, No Diarrhea Genitourinary Symptoms: No Dysuria Musculoskeletal: Fall, Injury Skin: Other (brusing), No Rash Neurological: No Dizziness, No Focal Weakness, No Sensory Changes Psychological: No Symptoms Endocrine: No Symptoms Hematologic/Lymphatic: No Symptoms Immunological/Allergic: No Symptoms All Other Systems: Reviewed and Negative - Past Medical History Pertinent Past Medical History: Yes Neurological History: Alzheimer's Disease ENT History: Cataracts Cardiac History: High Cholesterol, Hypertension Respiratory History: Bronchitis, COPD Endocrine Medical History: Diabetes Type II Musculoskeletal History: Arthritis, Osteoporosis GI Medical History: GERD, Ulcer, Other History: No Pertinent History Psycho-Social History: Anxiety, Depression, Panic Disorder Female Reproductive Disorders: No Pertinent History Other Medical History: Pt stated she "never had a blockage in my neck, it was a sun stroke years ago". bronchitis - Past Surgical History Past Surgical History: Yes Neuro Surgical History: No Pertinent History Cardiac: No Pertinent History Respiratory: No Pertinent History Gastrointestinal: No Pertinent History Genitourinary: No Pertinent History Musculoskeletal: No Pertinent History Female Surgical History: Tubal Ligation Other Surgical History: Bladder sx et cataract sx - Social History Smoking Status: Former smoker How long have you smoked: 42 Exposure to second hand smoke: No Alcohol Use: None Drug Use: none Patient Lives Alone: No - Nursing Vital Signs Nursing Vital Signs: Initial Vital Signs Temperature 97.4 F 04/17/18 16:55 Pulse Rate 84 04/17/18 16:55 Respiratory Rate 18 04/17/18 16:55 Blood Pressure 156/57 04/17/18 16:55 O2 Sat by Pulse Oximetry 93 L 04/17/18 16:55 Pain Scale Pain Intensity 5 - Surya Coma Score Best Eye Response (Pamplico): (4) open spontaneously Best Verbal Response (Pamplico): (5) oriented Best Motor Response (Surya): (6) obeys commands [place]o Total: 15 - Physical Exam General Appearance: no apparent distress, alert Head Injury: no evidence of injury Eye Exam: PERRL/EOMI ENT Exam: airway nml Neck Exam: normal inspection, No tenderness Respiratory/Chest Exam: chest tenderness (left superior lateral chest), rib tenderness (left ribs) Cardiovascular Exam: normal heart sounds, regular rate/rhythm Gastrointestinal Exam: soft, No tenderness, No distention, No guarding, No ecchymosis Rectal Exam: not done Back Exam: normal inspection, No vertebral tenderness Extremity Exam: normal inspection, normal range of motion, pelvis stable, No deformities Neurologic Exam: alert, oriented x 3, cooperative, sensation nml, No motor deficits Skin Exam: ecchymosis (bruising to left hip) SpO2 Interpretation: normal Oxygen Delivery: Room Air - Radiology Exams Chest X-ray Interpretation: Reviewed by me, Teleradiologist Report (per Dr Stanford), Negative, No Fracture, No Pneumothorax Left Ribs X-ray Interpretation: Reviewed by me, Teleradiologist Report (per Dr Stanford), Negative, No Fracture, No Pneumothorax Ordered Tests: Active Orders 24 hr Category Date Time Status CHEST 2 VIEWS (PA AND LAT) Stat Exams 04/17/18 17:07 Taken RIBS UNILATERAL Stat Exams 04/17/18 17:08 Taken - Progress Progress: unchanged Counseled pt/family regarding: diagnosis, rad results - Departure Time of Disposition: 18:07 Departure Disposition: Home Clinical Impression: Contusion of rib on left side Condition: Stable Critical Care Time: No Referrals: LORENZO GATES [Primary Care Provider] - Additional Instructions: You have bruised your left ribs. You do not have any broken bones. Take Tylenol 1000 mg every 8 hours and ibuprofen 800 mg every 8 hours as needed. Follow-up with your primary medical doctor as needed.
[2018-04-17 18:04] VITALS: BP 114/59; PULSE 80; O2SAT 94
--- NOTE | 2018-04-18 08:36 | XRAY ---
Indication: Pain following fall. Comparison: None 2 views of the left ribs demonstrates osteopenia, mild/moderate left shoulder degenerative arthropathy, mild multilevel degenerative spondylosis, remote appearing T10/L1 compression deformities, and scattered vascular calcifications. No other bony, articular, or soft tissue abnormalities.
--- NOTE | 2018-04-18 08:38 | XRAY ---
Indication: Left-sided chest pain following fall. Comparison: March 01, 2018. PA/lateral chest again hyperinflated with scattered bibasilar subsegmental atelectasis/scarring. No focal infiltrate, consolidation, or large effusion. Heart is not enlarged. Bony thorax intact again with osteopenia, degenerative spondylosis, and remote appearing T7/T10/L1 compression deformities. Impression: Nonacute hyperinflated chest with chronic features.
== END 2018-04-17 18:26 | disposition home or self-care (01) ==
LOC: ED 16:42
DX: S20.212A Contusion of left front wall of thorax, initial encounter (principal); R07.9 Chest pain, unspecified; W18.30XA Fall on same level, unspecified, initial encounter; Y93.9 Activity, unspecified; Y92.009 Unspecified place in unspecified non-institutional (private) residence as the place of occurrence of the external cause; Z79.899 Other long term (current) drug therapy; Z79.01 Long term (current) use of anticoagulants
CPT/HCPCS: 71046; 71100; 99283

== ENCOUNTER 2019-01-26 04:39 | Emergency (ER) | payer MEDICARE ==
--- NOTE | 2019-01-26 05:17 | ERPHSYRPT ---
- History of Present Illness Source: patient Exam Limitations: no limitations Patient Subjective Stated Complaint: pt states she fell on saturday and has been having increased pain since. states she missed a stepa nd fell forward on her hands and knees. Triage Nursing Assessment: pt alert and oriented, answers questions approp. pt back per wheelchair, transfers to stretcher with minimal assist of 1. bruising noted to bilat knees. light bruising noted to rt chest, some bruising noted on back and and to bialt arms. pt states she bruises easily d/t blood thinners. Occurred: days ago (22 days ago) Reason for Fall: tripped Injuries/Pain Location: chest (right chest), back (right posterior thoracic region and scapular areadid not come in a) Loss of Consciousness: no loss of consciousness Quality: aching, sharpness Severity of Pain-Max: moderate Severity of Pain-Current: moderate Modifying Factors: Improves With: movement, other (deep breathing) Associated Symptoms (Fall): back pain, extremity injury (patient states she fell on her knees but has minimal pain in her knees), No abdominal pain, No confusion, No chest pain, No dizziness, No headache, No lightheadedness, No muscle spasms, No nausea, No neck pain, No ringing in ears, No seizures, No shortness of breath, No slurred speech, No trouble walking, No vomiting, No vision changes Hx Tetanus, Diphtheria Vaccination/Date Given: Yes Hx Influenza Vaccination/Date Given: Yes Hx Pneumococcal Vaccination/Date Given: Yes Immunizations Up to Date: Yes <AMANUEL BRYANT - Last Filed: 01/26/19 07:01> <SONI PANDYA - Last Filed: 01/26/19 07:35> - History of Present Illness Time Seen by Provider: 01/26/19 05:02 Physician History: 83-year-old white female with history of Alzheimer's, cataracts, hyperlipidemia , high blood pressure, COPD, bronchitis, diabetes type 2, arthritis, serial processes, GERD, anxiety, depression Patient arrives with complaint of pain in the right of anterior right lateral posterior chest symptoms for 2 days she describes this pain as sharp worse with moving worse with breathing. She states it began after falling 2 days ago. She denies any neck pain she denies hitting her head or loss of consciousness. She is not short of breath. She does state she fell and struck her chest. She has no abdominal pain no nausea or vomiting. Past medical history includes Alzheimer's, cataracts, hyperlipidemia, high blood pressure, COPD, bronchitis, diabetes type 2, arthritis, osteoporosis, GERD , ulcers, anxiety, depression, and panic disorder Past surgical history includes cataracts, tubal ligation, bladder suspension Social history former smoker (AMANUEL BRYANT) Allergies/Adverse Reactions: codeine [Codeine] Allergy (Severe, Verified 01/26/19 04:58) Hives clarithromycin Allergy (Intermediate, Verified 01/26/19 04:58) Nausea Home Medications: Atorvastatin Calcium 20 mg PO HS 02/22/13 [History] Levothyroxine Sodium 50 Mcg [Synthroid 50 Mcg] 50 mcg PO DAILY 02/22/13 [ History] Clopidogrel Bisulfate 75 mg [PLAVIX 75 MG Tablet] 75 mg PO EVENING MEAL [History] Alprazolam 1 mg [Xanax 1 mg] 1 mg PO BID 11/07/16 [History] PANTOPRAZOLE 40 mg Tablet [Protonix 40MG Tablet] 1 tab PO DAILY 05/14/17 [ History] Pioglitazone HCl [Actos] 1 tab PO DAILY 05/14/17 [History] Potassium Chloride 10 Meq Tab* [Klor Con 10 MEQ] 10 meq PO EVENING MEAL 11/25 [History] Bumetanide 1 mg [Bumex 1 mg] 1 mg PO DAILY 03/01/18 [History] Citalopram Hydrobromide [Citalopram HBr] 10 mg PO HS 03/01/18 [History] Losartan Potassium 50 mg PO DAILY 03/01/18 [History] - Review of Systems Constitutional: No Fever, No Chills Eyes: No Symptoms Ears, Nose, & Throat: No Symptoms Respiratory: Other (pain in right ribs) Cardiac: No Chest Pain, No Edema, No Syncope Abdominal/Gastrointestinal: No Abdominal Pain, No Nausea, No Vomiting, No Diarrhea Genitourinary Symptoms: No Dysuria Musculoskeletal: Back Pain (pain posterior scapular region, posterior ribson the right), Other (patient states she fell on her knees but has minimal pain in either knee) Skin: No Rash Neurological: No Dizziness, No Focal Weakness, No Sensory Changes Psychological: No Symptoms Endocrine: No Symptoms All Other Systems: Reviewed and Negative <ANNETTEAMANUEL HARRY - Last Filed: 01/26/19 07:01> - Past Medical History Pertinent Past Medical History: Yes Neurological History: Alzheimer's Disease ENT History: Cataracts Cardiac History: High Cholesterol, Hypertension Respiratory History: Bronchitis, COPD Endocrine Medical History: Diabetes Type II Musculoskeletal History: Arthritis, Osteoporosis GI Medical History: GERD, Ulcer, Other History: No Pertinent History Psycho-Social History: Anxiety, Depression, Panic Disorder Female Reproductive Disorders: No Pertinent History Other Medical History: Pt stated she "never had a blockage in my neck, it was a sun stroke years ago". bronchitis - Past Surgical History Past Surgical History: Yes Neuro Surgical History: No Pertinent History Cardiac: No Pertinent History Respiratory: No Pertinent History Gastrointestinal: No Pertinent History Genitourinary: No Pertinent History Musculoskeletal: No Pertinent History Female Surgical History: Tubal Ligation Other Surgical History: Bladder tie up, et cataract surgery bilateral - Social History Smoking Status: Former smoker How long have you smoked: 42 Exposure to second hand smoke: No Alcohol Use: None Drug Use: none Patient Lives Alone: No <ANNETTEAMANUEL HARRY - Last Filed: 01/26/19 07:01> - [place] Coma Score Best Eye Response ([place]): (4) open spontaneously Best Verbal Response ([place]): (5) oriented Best Motor Response (Surya): (6) obeys commands Surya Total: 15 - Physical Exam General Appearance: mild distress, alert, other (pain increases with movement) Head Injury: no evidence of injury Eye Exam: PERRL/EOMI, other (fundi unremarkable) ENT Exam: airway nml Neck Exam: full range of motion, normal inspection, No pain on movement of neck , No tenderness Respiratory/Chest Exam: chest tenderness (right lateral ribs right posterior ribs tender with movement and palpation) Cardiovascular Exam: normal heart sounds, regular rate/rhythm Gastrointestinal Exam: soft, No tenderness, No distention, No guarding, No ecchymosis Back Exam: normal inspection, No vertebral tenderness Extremity Exam: normal range of motion, capillary refill <3 sec, pelvis stable, other (few bruises anterior knees bbilaterally full range of motion both knees both knees nontender), No amputations, No contusions, No calf tenderness, No deformities, No lacerations, No penetrations, No parasthesia, No paralysis Peripheral Pulses: dorsalis-pedis (R): 2+, dorsalis-pedis (L): 2+ Neurologic Exam: alert, oriented x 3, cooperative, sensation nml, No motor deficits SpO2 Interpretation: normal (93%) SpO2: 93 <AMANUEL BRYANT - Last Filed: 01/26/19 07:01> - Nursing Vital Signs Nursing Vital Signs: Initial Vital Signs Temperature 98.1 F 01/26/19 04:46 Pulse Rate 78 01/26/19 04:46 Respiratory Rate 20 01/26/19 04:46 Blood Pressure 165/79 01/26/19 04:46 O2 Sat by Pulse Oximetry 93 L 01/26/19 04:46 Pain Scale Pain Intensity 7 - Course Nursing assessment & vital signs reviewed: Yes EKG Interpreted by Me: RATE (68 bpm), Sinus Rhythm, NORMAL AXIS, Other (EKG: Sinus arrhythmia, 60 beats per minute, normal axis, no acute ST or T wave changes, normal EKG) <AMANUEL BRYANT - Last Filed: 01/26/19 07:01> - CT Exams Chest CT Interpretation: Tele-radiologist Report, No Fracture, Other (osteopenia, old T7 L1 compressions (50%)) <SONI PANDYA - Last Filed: 01/26/19 07:35> Ordered Tests: Active Orders 24 hr Category Date Time Status CHEST WITHOUT CONTRAST [CT] Stat Exams 01/26/19 05:10 Taken CBC W DIFF Stat Lab 01/26/19 05:20 Completed CMP Stat Lab 01/26/19 05:20 Completed TROPONIN Q3H Lab 01/26/19 05:20 Completed TROPONIN Q3H Lab 01/26/19 08:30 Ordered TROPONIN Q3H Lab 01/26/19 11:30 Ordered TROPONIN Q3H Lab 01/26/19 14:30 Ordered TROPONIN Q3H Lab 01/26/19 17:30 Ordered UA W/RFX UR CULTURE Stat Lab 01/26/19 05:44 Completed Medication Summary Discontinued Medications Generic Name Dose Route Start Last Admin Trade Name Freq PRN Reason Stop Dose Admin Tramadol HCl 50 mg 01/26/19 06:45 01/26/19 06:48 Ultram 50 Mg PO 01/26/19 06:46 50 mg STAT ONE Administration Tramadol HCl Confirm 01/26/19 06:46 Ultram 50 Mg Administered 01/26/19 06:47 Dose 50 mg .ROUTE .STK-MED ONE Lab/Rad Data: Laboratory Result Diagrams 01/26/19 05:20 01/26/19 05:20 Laboratory Results 01/26/19 01/26/19 01/26/19 Range/Units 05:44 05:20 05:20 WBC (4.0-10.5) K/mm3 RBC (4.1-5.4) M/mm3 Hgb (12.0-16.0) gm/dl Hct (35-47) % MCV (78-100) fl MCH (26-32) pg MCHC (32-36) g/dl RDW (11.5-14.0) % Plt Count (150-450) K/mm3 MPV (6-9.5) fl Gran % (36.0-66.0) % Eos # (Auto) (0-0.5) Absolute Lymphs (auto) (1.0-4.6) Absolute Monos (auto) (0.0-1.3) Lymphocytes % (24.0-44.0) % Monocytes % (0.0-12.0) % Eosinophils % (0.00-5.0) % Basophils % (0.0-0.4) % Absolute Granulocytes (1.4-6.9) Basophils # (0-0.4) Sodium 140 (137-145) mmol/L Potassium 4.4 (3.5-5.1) mmol/L Chloride 104 (98-107) mmol/L Carbon Dioxide 30 (22-30) mmol/L Anion Gap 9.7 (5-15) MEQ/L BUN 23 H (7-17) mg/dL Creatinine 1.45 H (0.52-1.04) mg/dL Estimated GFR 36.6 ML/MIN Glucose 103 (74-106) mg/dL Calcium 9.8 (8.4-10.2) mg/dL Total Bilirubin 0.60 (0.2-1.3) mg/dL AST 23 (14-36) U/L ALT 17 (0-35) U/L Alkaline Phosphatase 49 (38-126) U/L Troponin I < 0.012 (0.000-0.034) ng/mL Serum Total Protein 6.3 (6.3-8.2) g/dL Albumin 3.6 (3.5-5.0) g/dL Urine Color YELLOW (YELLOW) Urine Appearance CLEAR (CLEAR) Urine pH 5.0 (5-6) Ur Specific [place] 1.016 (1.005-1.025) Urine Protein NEGATIVE (Negative) Urine Ketones NEGATIVE (NEGATIVE) Urine Blood NEGATIVE (0-5) Jaylan/ul Urine Nitrite NEGATIVE (NEGATIVE) Urine Bilirubin NEGATIVE (NEGATIVE) Urine Urobilinogen NEGATIVE (0-1) mg/dL Ur Leukocyte Esterase NEGATIVE (NEGATIVE) Urine WBC (Auto) 0-2 (0-5) /HPF Urine RBC (Auto) NONE (0-2) /HPF U Hyaline Cast (Auto) 6-10 (0-2) /LPF U Epithel Cells (Auto) RARE (FEW) /HPF Urine Bacteria (Auto) RARE (NEGATIVE) /HPF Urine Mucus (Auto) SLIGHT (NEGATIVE) /HPF Urine Culture Reflexed NO (NO) Urine Glucose NEGATIVE (NEGATIVE) mg/dL 01/26/19 Range/Units 05:20 WBC 5.8 (4.0-10.5) K/mm3 RBC 3.62 L (4.1-5.4) M/mm3 Hgb 10.8 L (12.0-16.0) gm/dl Hct 34.9 L (35-47) % MCV 96.4 (78-100) fl MCH 29.8 (26-32) pg MCHC 30.9 L (32-36) g/dl RDW 15.3 H (11.5-14.0) % Plt Count 214 (150-450) K/mm3 MPV 9.5 (6-9.5) fl Gran % 56.4 (36.0-66.0) % Eos # (Auto) 0.30 (0-0.5) Absolute Lymphs (auto) 1.59 (1.0-4.6) Absolute Monos (auto) 0.63 (0.0-1.3) Lymphocytes % 27.3 (24.0-44.0) % Monocytes % 10.8 (0.0-12.0) % Eosinophils % 5.2 H (0.00-5.0) % Basophils % 0.3 (0.0-0.4) % Absolute Granulocytes 3.28 (1.4-6.9) Basophils # 0.02 (0-0.4) Sodium (137-145) mmol/L Potassium (3.5-5.1) mmol/L Chloride (98-107) mmol/L Carbon Dioxide (22-30) mmol/L Anion Gap (5-15) MEQ/L BUN (7-17) mg/dL Creatinine (0.52-1.04) mg/dL Estimated GFR ML/MIN Glucose (74-106) mg/dL Calcium (8.4-10.2) mg/dL Total Bilirubin (0.2-1.3) mg/dL AST (14-36) U/L ALT (0-35) U/L Alkaline Phosphatase (38-126) U/L Troponin I (0.000-0.034) ng/mL Serum Total Protein (6.3-8.2) g/dL Albumin (3.5-5.0) g/dL Urine Color (YELLOW) Urine Appearance (CLEAR) Urine pH (5-6) Ur Specific [place] (1.005-1.025) Urine Protein (Negative) Urine Ketones (NEGATIVE) Urine Blood (0-5) Jaylan/ul Urine Nitrite (NEGATIVE) Urine Bilirubin (NEGATIVE) Urine Urobilinogen (0-1) mg/dL Ur Leukocyte Esterase (NEGATIVE) Urine WBC (Auto) (0-5) /HPF Urine RBC (Auto) (0-2) /HPF U Hyaline Cast (Auto) (0-2) /LPF U Epithel Cells (Auto) (FEW) /HPF Urine Bacteria (Auto) (NEGATIVE) /HPF Urine Mucus (Auto) (NEGATIVE) /HPF Urine Culture Reflexed (NO) Urine Glucose (NEGATIVE) mg/dL - Progress Progress: improved <AMANUEL BRYANT - Last Filed: 01/26/19 07:01> - Progress Counseled pt/family regarding: lab results, diagnosis, need for follow-up, rad results <SONI PANDYA - Last Filed: 01/26/19 07:35> - Progress Progress Note: 01/26/19 06:13 83-year-old white female arrives with pain in her right back and right ribs since falling 2 days ago. Patient's CBC CMP troponin all within normal limits CT chest is pending. Patient has a listed allergy to codeine her daughter states she cannot take hydrocodone either. I have offered to try tramadol however when the patient to the patient could react however patient has decided she does not want to take anything at this time should taken Tylenol right before arrival and she apparently had a fairly significant reaction to codeine and hydrocodone past. Patient also states her pain is easing up. 01/26/19 07:00 Patient's case will be transferred to Dr. Pandya secondary to shift change. Case is discussed with Dr. Alvarado (AMANUEL BRYANT) 01/26/19 07:32 Pt has been comfortable, no sign of severe pain, or dyspnea, distress, reviewed her labs and CT report, discussed with her and her daughter, she is being discharged in stable condition to rest x 3-4 days, apply moist heat to painful chest and follow up with her physician in 1 week. (SONI PANDYA) <AMANUEL BRYANT - Last Filed: 01/26/19 07:01> - Departure Departure Disposition: Home Critical Care Time: No <SONI PANDYA - Last Filed: 01/26/19 07:35> - Departure Clinical Impression: Contusion, chest wall Qualifiers: Encounter type: initial encounter Laterality: right Qualified Code(s): S20.211A - Contusion of right front wall of thorax, initial encounter Condition: Stable Referrals: LORENZO GATES [Primary Care Provider] - Instructions: Contusion (DC), Blunt Chest Trauma Additional Instructions: Rest x 3-4 days, apply moist heat to painful ribs, and follow up with your physician in 1 week, return if severe pain, severe shortness of breath, weakness , vomiting, or fever> 102 F!
[2019-01-26 05:27] LABS: BASOPHIL % 0.3 % (0.0-0.4); Basophil (Absolute #) 0.02 (0-0.4); Eosinophil % 5.2 % (0.00-5.0); Granulocyte Absolute (ANC) 3.28 (1.4-6.9); Granulocytes % 56.4 % (36.0-66.0); Hematocrit 34.9 % (35-47); Hemoglobin 10.8 gm/dl (12.0-16.0); Lymphocyte (Absolute #) 1.59 (1.0-4.6); Lymphocytes % 27.3 % (24.0-44.0); Mean Cell Volume 96.4 fl (78-100); Mean Corpuscular Hemoglobin 29.8 pg (26-32); Mean Corpuscular Hgb Concent. 30.9 g/dl (32-36); Mean Platelet Volume 9.5 fl (6-9.5); Monocyte (Absolute #) 0.63 (0.0-1.3); Monocytes % 10.8 % (0.0-12.0); Platelet Count 214 K/mm3 (150-450); Red Blood Count 3.62 M/mm3 (4.1-5.4); Red Cell Distribution Width 15.3 % (11.5-14.0); White Blood Count 5.8 K/mm3 (4.0-10.5)
[2019-01-26 05:38] LABS: ALBUMIN 3.6 g/dL (3.5-5.0); ANION GAP 9.7 MEQ/L (5-15); BILIRUBIN,TOTAL 0.6 mg/dL (0.2-1.3); Calcium 9.8 mg/dL (8.4-10.2); Creatinine 1 1.45 mg/dL (0.52-1.04); Potassium 4.4 mmol/L (3.5-5.1); Total Protein 6.3 g/dL (6.3-8.2)
[2019-01-26 05:59] LABS: Appearance CLEAR (CLEAR); Bacteria RARE /HPF (NEGATIVE); Bilirubin NEGATIVE (NEGATIVE); Blood NEGATIVE Ery/ul (0-5); Epithelial Cells RARE /HPF (FEW); Glucose NEGATIVE (NEGATIVE); Ketones NEGATIVE (NEGATIVE); Leukocyte Esterase NEGATIVE (NEGATIVE); Mucus SLIGHT /HPF (NEGATIVE); Nitrite NEGATIVE (NEGATIVE); Protein,Urine Dip NEGATIVE (Negative); Specific Gravity 1.016 (1.005-1.025); Urobilinogen NEGATIVE mg/dL (0-1); WBC 0-2 /HPF (0-5)
[2019-01-26] MEDS ORDERED: ULTRAM 50 MG PO ONE (06:45)
[2019-01-26] MEDS ORDERED: ULTRAM 50 MG ONE (06:46)
[2019-01-26 06:51] VITALS: BP 163/81; PULSE 81
[2019-01-26 07:01] VITALS: O2SAT 93
--- NOTE | 2019-01-26 08:55 | XRAY ---
Indication: Right chest and scapular pain. Status post fall 2 days ago. Multiple contiguous axial images obtained through the chest without contrast as ordered. Comparison: None Lungs demonstrates mild/moderate diffuse pulmonary emphysema and mild bilateral dependent atelectasis. Also scattered subsegmental atelectasis/scarring, greatest in the left upper lobe. No suspicious pulmonary mass, infiltrate, or effusion. Heart is not enlarged. Aorta is mildly arteriosclerotic without aneurysm. No pathologic mediastinal lymphadenopathy. Moderate sized hiatal hernia with partial intrathoracic stomach. Bone windows demonstrates mild osteopenia, mild degenerative changes throughout the spine, mild degenerative changes of both shoulders, and T10/T11 Schmorl nodes. Also remote appearing T7/L1 compression fractures with approximately 50% height loss. No acute fracture or suspicious bony lesions. Limited upper abdomen including adrenal glands unremarkable. Impression: 1. Pulmonary emphysema, scattered atelectasis/scarring, and hiatal hernia with partial intrathoracic stomach. 2. No acute cardiopulmonary abnormalities on this noncontrast exam. 3. Incidental chronic bony findings as detailed. CT DI 16.33
== END 2019-01-26 07:53 | disposition home or self-care (01) ==
LOC: ED 04:39
DX: R07.89 Other chest pain (principal); S20.211A Contusion of right front wall of thorax, initial encounter; S80.02XA Contusion of left knee, initial encounter; S80.01XA Contusion of right knee, initial encounter; S40.022A Contusion of left upper arm, initial encounter; S40.021A Contusion of right upper arm, initial encounter; M54.6 Pain in thoracic spine; M25.512 Pain in left shoulder; M25.511 Pain in right shoulder; W01.198A Fall on same level from slipping, tripping and stumbling with subsequent striking against other object, initial encounter; G30.9 Alzheimer's disease, unspecified; F02.80 Dementia in other diseases classified elsewhere, unspecified severity, without behavioral disturbance, psychotic disturbance, mood disturbance, and anxiety; E78.5 Hyperlipidemia, unspecified; I10 Essential (primary) hypertension; J44.9 Chronic obstructive pulmonary disease, unspecified; E11.9 Type 2 diabetes mellitus without complications; E78.00 Pure hypercholesterolemia, unspecified; M19.90 Unspecified osteoarthritis, unspecified site; K21.9 Gastro-esophageal reflux disease without esophagitis; F32.9 Major depressive disorder, single episode, unspecified; Z79.899 Other long term (current) drug therapy
CPT/HCPCS: 36415; 71250; 80053; 81001; 84484; 85025; 99284; A9270-GY

== ENCOUNTER 2019-12-25 15:13 | Emergency (ER) | payer MEDICARE ==
--- NOTE | 2019-12-25 15:27 | ERPHSYRPT ---
- History of Present Illness Time Seen by Provider: 12/25/19 15:27 Historian: patient, family Exam Limitations: no limitations Physician History: This is an 84-year-old white female who 30 years ago had a bladder suspension procedure in [facility]. Last few days she had noticed some pressure when she attempts to urinate. She feels as though something is going to fall out. She does not have significant pain. When she is lying down flat she has no pain or pressure symptoms. She has had no nausea no vomiting no diarrhea. She has no chest pain and she is not short of breath. She has no significant abdominal pain. Patient has an appointment to see her primary care physician, Dr. Spann on Saturday. Timing/Duration: day(s) (3-4) Activities at Onset: none Quality: pressure Abdominal Pain Onset Location: suprapubic Severity of Pain-Max: none Severity of Pain-Current: none Modifying Factors: Improves With: nothing Associated Symptoms: denies symptoms Previous symptoms: same symptoms as today (30 years ago) Allergies/Adverse Reactions: codeine [Codeine] Allergy (Severe, Verified 12/25/19 15:30) Hives clarithromycin Allergy (Intermediate, Verified 12/25/19 15:30) Nausea doxycycline Allergy (Intermediate, Verified 12/25/19 15:30) Hives Home Medications: Atorvastatin Calcium 20 mg PO HS 02/22/13 [History] Levothyroxine Sodium 50 Mcg [Synthroid 50 Mcg] 50 mcg PO DAILY 02/22/13 [History] Clopidogrel Bisulfate 75 mg [PLAVIX 75 MG Tablet] 75 mg PO EVENING MEAL 10/12/14 [History] Alprazolam 1 mg [Xanax 1 mg] 1 mg PO BID 11/07/16 [History] PANTOPRAZOLE 40 mg Tablet [Protonix 40MG Tablet] 1 tab PO DAILY 05/14/17 [History] Pioglitazone HCl [Actos] 1 tab PO DAILY 05/14/17 [History] Bumetanide 1 mg [Bumex 1 mg] 1 mg PO DAILY 03/01/18 [History] Citalopram Hydrobromide [Citalopram HBr] 10 mg PO HS 03/01/18 [History] Benazepril HCl 10 mg [Lotensin 10 MG] 10 mg PO DAILY 08/21/19 [History] Hx Tetanus, Diphtheria Vaccination/Date Given: Yes Hx Influenza Vaccination/Date Given: Yes Hx Pneumococcal Vaccination/Date Given: Yes Travel Risk - International Travel Have you traveled outside of the country in past 3 weeks: No - Coronavirus Screening Are you exhibiting any of the following symptoms?: No Close contact with a COVID-19 positive Pt in past 14-21 Days: No - Review of Systems Constitutional: No Symptoms Eyes: No Symptoms Ears, Nose, & Throat: No Symptoms Respiratory: No Symptoms Cardiac: No Symptoms Abdominal/Gastrointestinal: No Symptoms Genitourinary Symptoms: Other (Suprapubic/pelvic pressure) Musculoskeletal: No Symptoms Skin: No Symptoms Neurological: No Symptoms Psychological: No Symptoms Endocrine: No Symptoms Hematologic/Lymphatic: No Symptoms Immunological/Allergic: No Symptoms All Other Systems: Reviewed and Negative - Past Medical History Pertinent Past Medical History: Yes Neurological History: Alzheimer's Disease ENT History: Cataracts Cardiac History: High Cholesterol, Hypertension Respiratory History: Bronchitis, COPD Endocrine Medical History: Diabetes Type II Musculoskeletal History: Arthritis, Osteoporosis GI Medical History: GERD, Ulcer, Other History: No Pertinent History Psycho-Social History: Anxiety, Depression, Panic Disorder Female Reproductive Disorders: No Pertinent History Other Medical History: Pt stated she "never had a blockage in my neck, it was a sun stroke years ago". bronchitis - Past Surgical History Past Surgical History: Yes Neuro Surgical History: No Pertinent History Cardiac: No Pertinent History Respiratory: No Pertinent History Gastrointestinal: No Pertinent History Genitourinary: No Pertinent History Musculoskeletal: No Pertinent History Female Surgical History: Tubal Ligation Other Surgical History: Bladder tie up, et cataract surgery bilateral - Social History Smoking Status: Former smoker How long have you smoked: 42 Exposure to second hand smoke: No Alcohol Use: None Drug Use: none Patient Lives Alone: No - Nursing Vital Signs Nursing Vital Signs: Initial Vital Signs Temperature 98.5 F 12/25/19 15:18 Pulse Rate 70 12/25/19 15:18 Respiratory Rate 18 12/25/19 15:18 Blood Pressure 146/95 12/25/19 15:18 O2 Sat by Pulse Oximetry 97 12/25/19 15:18 Pain Scale Pain Intensity 0 - Physical Exam General Appearance: no apparent distress, alert, anxiety Eye Exam: PERRL/EOMI, eyes nml inspection Ears, Nose, Throat Exam: normal ENT inspection, moist mucous membranes Neck Exam: normal inspection, non-tender, supple, full range of motion Respiratory Exam: normal breath sounds, lungs clear, airway intact, No chest tenderness, No respiratory distress Cardiovascular Exam: regular rate/rhythm, normal heart sounds, normal peripheral pulses Gastrointestinal/Abdomen Exam: soft, normal bowel sounds, No tenderness, No guarding, No rebound Pelvic Exam: not done, other (External visual inspection reveals no evidence of any external masses. For example, no vaginal prolapse, no bladder prolapse, no bowel prolapse.) Rectal Exam: not done Back Exam: normal inspection, normal range of motion, No CVA tenderness, No vertebral tenderness Extremity Exam: normal inspection, normal range of motion, pelvis stable Neurologic Exam: alert, oriented x 3, cooperative, pigs feet finisher II-XII nml as tested, normal mood/affect, nml cerebellar function, nml station & gait, sensation nml Skin Exam: normal color, warm, dry Lymphatic Exam: No adenopathy SpO2 Interpretation: normal O2 Delivery: Room Air - Course Nursing assessment & vital signs reviewed: Yes Ordered Tests: Active Orders 24 hr Category Date Time Status IV Insertion STAT Care 12/25/19 15:44 Active ABDOMEN AND PELVIS W/0 CONTRAS [CT] Stat Exams 12/25/19 15:45 Taken CBC W DIFF Stat Lab 12/25/19 16:00 Completed CMP Stat Lab 12/25/19 16:00 Completed CULTURE,URINE Stat Lab 12/25/19 16:00 Received Lactic Acid Stat Lab 12/25/19 15:44 Ordered UA W/RFX UR CULTURE Stat Lab 12/25/19 16:00 Completed Medication Summary Generic Name Dose Route Start Last Admin Trade Name Freq PRN Reason Stop Dose Admin Ceftriaxone Sodium/Dextrose 1 g in 50 mls @ 100 mls/hr 12/25/19 16:38 Rocephin 1 Gm-D5w 50 Ml Bag IV 12/25/19 17:07 STAT STA Lab/Rad Data: Laboratory Result Diagrams 12/25/19 16:00 12/25/19 16:00 Laboratory Results 12/25/19 12/25/19 12/25/19 Range/Units 16:00 16:00 16:00 WBC 7.4 (4.0-10.5) K/mm3 RBC 4.03 L (4.1-5.4) M/mm3 Hgb 11.5 L (12.0-16.0) gm/dl Hct 37.6 (35-47) % MCV 93.3 (78-100) fl MCH 28.5 (26-32) pg MCHC 30.6 L (32-36) g/dl RDW 15.0 H (11.5-14.0) % Plt Count 243 (150-450) K/mm3 MPV 9.0 (7.5-11.0) fl Gran % 63.2 (36.0-66.0) % Eos # (Auto) 0.07 (0-0.5) Absolute Lymphs (auto) 1.98 (1.0-4.6) Absolute Monos (auto) 0.67 (0.0-1.3) Lymphocytes % 26.6 (24.0-44.0) % Monocytes % 9.0 (0.0-12.0) % Eosinophils % 0.9 (0.00-5.0) % Basophils % 0.3 (0.0-0.4) % Absolute Granulocytes 4.70 (1.4-6.9) Basophils # 0.02 (0-0.4) Sodium 139 (137-145) mmol/L Potassium 4.1 (3.5-5.1) mmol/L Chloride 106 (98-107) mmol/L Carbon Dioxide 27 (22-30) mmol/L Anion Gap 10.7 (5-15) MEQ/L BUN 18 H (7-17) mg/dL Creatinine 1.10 H (0.52-1.04) mg/dL Estimated GFR 50.2 ML/MIN Glucose 74 (74-106) mg/dL Calcium 8.9 (8.4-10.2) mg/dL Total Bilirubin 0.60 (0.2-1.3) mg/dL AST 24 (14-36) U/L ALT 14 (0-35) U/L Alkaline Phosphatase 61 (38-126) U/L Serum Total Protein 7.0 (6.3-8.2) g/dL Albumin 4.1 (3.5-5.0) g/dL Urine Color STRAW (YELLOW) Urine Appearance SLIGHTLY CLOUDY (CLEAR) Urine pH 6.0 (5-6) Ur Specific [place] 1.008 (1.005-1.025) Urine Protein NEGATIVE (Negative) Urine Ketones NEGATIVE (NEGATIVE) Urine Blood SMALL (0-5) Jaylan/ul Urine Nitrite NEGATIVE (NEGATIVE) Urine Bilirubin NEGATIVE (NEGATIVE) Urine Urobilinogen NEGATIVE (0-1) mg/dL Ur Leukocyte Esterase LARGE (NEGATIVE) Urine WBC (Auto) >100 (0-5) /HPF Urine RBC (Auto) 3-5 (0-2) /HPF U Hyaline Cast (Auto) 0-2 (0-2) /LPF U Epithel Cells (Auto) NONE (FEW) /HPF Urine Bacteria (Auto) FEW (NEGATIVE) /HPF Urine Culture Reflexed YES (NO) Urine Glucose NEGATIVE (NEGATIVE) mg/dL - Progress Progress: unchanged Progress Note: 12/25/19 16:44 CAT scan of the abdomen and pelvis reveals an enlarging large hiatal hernia with partial intrathoracic stomach. There is a normal appendix. The remainder of the CAT scan of the abdomen and pelvis is negative. Counseled pt/family regarding: lab results, diagnosis, need for follow-up, rad results - Departure Departure Disposition: Home Clinical Impression: Urinary tract infection Condition: Stable Critical Care Time: No Referrals: LORENZO SPANN [Primary Care Provider] - Additional Instructions: Drink plenty of fluids. Take medication as prescribed. Keep your appointment with Dr. Spann that is scheduled on 12/28/2019. Prescriptions: Ciprofloxacin [Cipro 500 MG] 500 mg PO BID #14 tablet
[2019-12-25 15:30] VITALS: O2SAT 97
[2019-12-25 16:13] LABS: BASOPHIL % 0.3 % (0.0-0.4); Basophil (Absolute #) 0.02 (0-0.4); Eosinophil % 0.9 % (0.00-5.0); Eosinophil (Absolute #) 0.07 (0-0.5); Hematocrit 37.6 % (35-47); Hemoglobin 11.5 gm/dl (12.0-16.0); Lymphocyte (Absolute #) 1.98 (1.0-4.6); Lymphocytes % 26.6 % (24.0-44.0); Mean Cell Volume 93.3 fl (78-100); Mean Corpuscular Hemoglobin 28.5 pg (26-32); Mean Corpuscular Hgb Concent. 30.6 g/dl (32-36); Monocyte (Absolute #) 0.67 (0.0-1.3); Neutrophil % 63.2 % (36.0-66.0); Platelet Count 243 K/mm3 (150-450); Red Blood Count 4.03 M/mm3 (4.1-5.4); White Blood Count 7.4 K/mm3 (4.0-10.5)
[2019-12-25 16:25] LABS: ALBUMIN 4.1 g/dL (3.5-5.0); ANION GAP 10.7 MEQ/L (5-15); BILIRUBIN,TOTAL 0.6 mg/dL (0.2-1.3); Calcium 8.9 mg/dL (8.4-10.2); Creatinine 1 1.1 mg/dL (0.52-1.04); Potassium 4.1 mmol/L (3.5-5.1)
[2019-12-25 16:32] LABS: Appearance SLIGHTLY CLOUDY (CLEAR); Bacteria FEW /HPF (NEGATIVE); Bilirubin NEGATIVE (NEGATIVE); Blood SMALL Ery/ul (0-5); Glucose NEGATIVE (NEGATIVE); Hyaline Casts 0-2 /LPF (0-2); Ketones NEGATIVE (NEGATIVE); Leukocyte Esterase LARGE (NEGATIVE); Nitrite NEGATIVE (NEGATIVE); Protein,Urine Dip NEGATIVE (Negative); Specific Gravity 1.008 (1.005-1.025); Urobilinogen NEGATIVE mg/dL (0-1); WBC >100 /HPF (0-5)
[2019-12-25] MEDS ORDERED: ROCEPHIN 1 Gm-D5w 50 ml Bag** 1 G/50 ML IVPB IV STA (16:38)
[2019-12-25] MEDS ORDERED: ROCEPHIN 1 Gm-D5w 50 ml Bag** 1 G/50 ML IVPB IV ONE (16:43)
[2019-12-25 16:52] VITALS: BP 156/68; PULSE 68
--- NOTE | 2019-12-25 22:22 | XRAY ---
Indication: Pelvic pressure with urination. Multiple contiguous axial images obtained through the abdomen and pelvis without contrast as ordered. Comparison: March 15, 2012. Lung bases again hyperinflated with bibasilar atelectasis/scarring. No infiltrate or effusion. Heart is not enlarged. Enlarging large hiatal hernia with again partial intrathoracic stomach. Noncontrasted stomach and bowel loops appear nonobstructed. Normal appendix. Again scattered descending and sigmoid diverticulosis without diverticulitis. No free fluid/air. Again previous hysterectomy. Remaining liver, gallbladder, pancreas, spleen, adrenal glands, kidneys, ureters, and bladder appear unremarkable for noncontrast exam. Stable heavy scattered aortoiliac calcifications without AAA. Osseous structures again demonstrates osteopenia, mild degenerative changes throughout the thoracolumbar spine, and remote L1 compression fracture. No ventral or inguinal hernias. Impression: 1. Again colonic diverticulosis, large hiatal hernia with partial intrathoracic stomach, and chronic bony findings. 2. Remaining CT abdomen/pelvis without contrast exam is negative.
== END 2019-12-25 16:57 | disposition home or self-care (01) ==
LOC: ED 15:13
DX: N39.0 Urinary tract infection, site not specified (principal); K44.9 Diaphragmatic hernia without obstruction or gangrene; Z79.899 Other long term (current) drug therapy; I10 Essential (primary) hypertension; E11.9 Type 2 diabetes mellitus without complications; J44.9 Chronic obstructive pulmonary disease, unspecified; Z79.01 Long term (current) use of anticoagulants; E78.00 Pure hypercholesterolemia, unspecified
CPT/HCPCS: 36000; 36415; 74176; 80053; 81001; 85025; 87077; 87086; 87186; 96365; 99284; J0696

== ENCOUNTER 2021-08-28 13:41 | Emergency (ER) | payer MEDICARE ==
--- NOTE | 2021-08-28 13:52 | ERPHSYRPT ---
- History of Present Illness Time Seen by Provider: 08/28/21 13:45 Source: patient Exam Limitations: no limitations Physician History: Patient is a 85-year-old female who presents with a complaint of nosebleed which is going on for more than 15 to 20 minutes. This is her second recent epistaxis episode. Her only blood thinners include Plavix. Patient was brought to the hospital by EMS from home. Timing/Duration: abrupt onset, this afternoon Severity: moderate ENT Location: nose Prearrival Treatment: squeezing nostrils Associated Symptoms: epistaxis Allergies/Adverse Reactions: codeine [Codeine] Allergy (Severe, Verified 08/28/21 13:49) Hives clarithromycin Allergy (Intermediate, Verified 08/28/21 13:49) Nausea doxycycline Allergy (Intermediate, Verified 08/28/21 13:49) Hives Home Medications: Atorvastatin Calcium 20 mg PO HS 02/22/13 [History] Levothyroxine Sodium 50 Mcg [Synthroid 50 Mcg] 50 mcg PO DAILY 02/22/13 [History] Clopidogrel Bisulfate 75 mg [PLAVIX 75 MG Tablet] 75 mg PO EVENING MEAL 10/12/14 [History] PANTOPRAZOLE 40 mg Tablet [Protonix 40MG Tablet] 1 tab PO DAILY 05/14/17 [History] Pioglitazone HCl [Actos] 1 tab PO DAILY 05/14/17 [History] Bumetanide 1 mg [Bumex 1 mg] 1 mg PO DAILY 03/01/18 [History] Citalopram Hydrobromide [Citalopram HBr] 20 mg PO HS 03/01/18 [History] Albuterol Sulfate [Proair Hfa] 1 inh PO UD 08/28/21 [History] Alendronate Sodium 70 mg [Fosamax 70 MG] 70 mg PO Q7D@0600 08/28/21 [History] Calcifediol [Rayaldee] 30 mcg PO DAILY 08/28/21 [History] Potassium Chloride 10 meq PO DAILY 08/28/21 [History] Trazodone HCl 50 mg [Desyrel 50 mg] 50 mg PO DAILY 08/28/21 [History] Hx Tetanus, Diphtheria Vaccination/Date Given: Yes Hx Influenza Vaccination/Date Given: Yes Hx Pneumococcal Vaccination/Date Given: Yes - Review of Systems Constitutional: No Fever, No Chills Eyes: No Symptoms Ears, Nose, & Throat: No Symptoms, Epistaxis Respiratory: No Cough, No Dyspnea Cardiac: No Chest Pain, No Edema, No Syncope Abdominal/Gastrointestinal: No Abdominal Pain, No Nausea, No Vomiting, No Diarrhea Genitourinary Symptoms: No Dysuria Musculoskeletal: No Back Pain, No Neck Pain Skin: No Rash Neurological: No Dizziness, No Focal Weakness, No Sensory Changes Psychological: No Symptoms Endocrine: No Symptoms All Other Systems: Reviewed and Negative - Past Medical History Pertinent Past Medical History: Yes Neurological History: Alzheimer's Disease ENT History: Cataracts Cardiac History: High Cholesterol, Hypertension Respiratory History: Bronchitis, COPD Endocrine Medical History: Diabetes Type II Musculoskeletal History: Arthritis, Osteoporosis GI Medical History: GERD, Ulcer, Other History: No Pertinent History Psycho-Social History: Anxiety, Depression, Panic Disorder Female Reproductive Disorders: No Pertinent History Other Medical History: Pt stated she "never had a blockage in my neck, it was a sun stroke years ago". bronchitis - Past Surgical History Past Surgical History: Yes Neuro Surgical History: No Pertinent History Cardiac: No Pertinent History Respiratory: No Pertinent History Gastrointestinal: No Pertinent History Genitourinary: No Pertinent History Musculoskeletal: No Pertinent History Female Surgical History: Tubal Ligation Other Surgical History: Bladder tie up, et cataract surgery bilateral - Social History Smoking Status: Former smoker How long have you smoked: 42 Exposure to second hand smoke: No Alcohol Use: None Drug Use: none Patient Lives Alone: No - Nursing Vital Signs Nursing Vital Signs: Initial Vital Signs Temperature 99.2 F 08/28/21 13:43 Pulse Rate 69 08/28/21 13:43 Blood Pressure 160/95 08/28/21 13:43 O2 Sat by Pulse Oximetry 96 08/28/21 13:43 Pain Scale Pain Intensity 0 - Physical Exam General Appearance: no apparent distress, alert Eye Exam: bilateral eye: PERRL, EOMI Ear Exam: bilateral ear: auricle normal, canal normal Nasal Exam: active bleeding (Right side anterior) Throat Exam: pharynx normal, moist mucus membranes, No tonsillar exudate Neck Exam: supple Cardiovascular/Respiratory Exam: normal breath sounds, regular rate/rhythm Abdominal Exam: non-tender, soft Neurologic Exam: alert, oriented x 3, sensation nml, No motor deficits Skin Exam: normal color, warm, dry SpO2 Interpretation: normal O2 Delivery: Room Air Procedures - Additional Procedures Progress: Rhino Rocket placed right side - Course Nursing assessment & vital signs reviewed: Yes - Progress Progress: improved Progress Note: 08/28/21 14:56 Patient was in instructed to have the packing removed in 48 hours from her PCP or ENT - Departure Departure Disposition: Home Clinical Impression: Epistaxis Condition: Stable Critical Care Time: No Referrals: LORENZO GATES [Primary Care Provider] - Follow up/PCP as directed Instructions: Nosebleeds (DC)
[2021-08-28 14:51] VITALS: BP 174/73; PULSE 61; O2SAT 95
== END 2021-08-28 15:14 | disposition home or self-care (01) ==
LOC: ED 13:41
DX: R04.0 Epistaxis (principal); E78.5 Hyperlipidemia, unspecified; I10 Essential (primary) hypertension; G30.9 Alzheimer's disease, unspecified; F02.80 Dementia in other diseases classified elsewhere, unspecified severity, without behavioral disturbance, psychotic disturbance, mood disturbance, and anxiety; E11.9 Type 2 diabetes mellitus without complications; J44.9 Chronic obstructive pulmonary disease, unspecified; Z79.01 Long term (current) use of anticoagulants; Z79.899 Other long term (current) drug therapy
CPT/HCPCS: 30905; 99283

== ENCOUNTER 2022-01-27 12:27 | Emergency (ER) | payer MEDICARE ==
[2022-01-27] MEDS ORDERED: Sodium Chloride 0.9% 1000 ML 1,000 ML IV STA (12:40)
[2022-01-27] MEDS ORDERED: Sodium Chloride 0.9% 1000 ML 1,000 ML ONE (12:55)
[2022-01-27 13:12] LABS: ALBUMIN 4.1 g/dL (3.5-5.0); ANION GAP 12.9 MEQ/L (5-15); BILIRUBIN,TOTAL 0.5 mg/dL (0.2-1.3); Calcium 9.1 mg/dL (8.4-10.2); Creatinine 1 1.33 mg/dL (0.52-1.04); EST GLOMERULAR FILTRATION RATE 40.1 ML/MIN; MAGNESIUM 1.8 mg/dL (1.6-2.3); Potassium 4.1 mmol/L (3.5-5.1); Total Protein 7.1 g/dL (6.3-8.2)
[2022-01-27 13:21] LABS: Absolute Neutrophil Ct (ANC) 2.26 x10^3/uL (1.4-6.9); Basophil (Absolute #) 0.02 x10^3/uL (0-0.4); Eosinophil (Absolute #) 0 x10^3/uL (0-0.5); Hematocrit 41.5 % (35-47); Lymphocyte (Absolute #) 0.99 x10^3/uL (1.0-4.6); Lymphocytes % 26.5 % (24.0-44.0); Mean Cell Volume 96.5 fL (78-100); Mean Corpuscular Hemoglobin 30.2 pg (26-32); Mean Corpuscular Hgb Concent. 31.3 g/dL (32-36); Mean Platelet Volume 9.4 fL (7.5-11.0); Monocyte (Absolute #) 0.44 x10^3/uL (0.0-1.3); Monocytes % 11.8 % (0.0-12.0); Neutrophil % 60.7 % (36.0-66.0); Platelet Count 198 x10^3/uL (150-450); Red Cell Distribution Width 14.3 % (11.5-14.0); White Blood Count 3.7 x10^3/uL (4.0-10.5)
[2022-01-27 13:25] LABS: Appearance CLEAR (CLEAR); Bilirubin NEGATIVE (NEGATIVE); Glucose NEGATIVE (NEGATIVE); Ketones NEGATIVE (NEGATIVE); Specific Gravity 1.025 (1.005-1.025)
[2022-01-27 13:26] LABS: Dipstick done @ ? MAIN LAB; Nitrite NEGATIVE (NEGATIVE); Ph 5.5 (5-6); Protein,Urine Dip TRACE (Negative); RBC NEGATIVE Ery/ul (0-5); Urobilinogen 0.2 mg/dL (0-1)
[2022-01-27 13:35] LABS: Epithelial Cells RARE /HPF (FEW); Mucus SLIGHT /HPF (NEGATIVE); RBC 0-2 /HPF (0-2)
[2022-01-27 13:37] LABS: Urine Cultured Indicated? NO
--- NOTE | 2022-01-27 13:48 | ERPHSYRPT ---
- History of Present Illness Time Seen by Provider: 01/27/22 12:33 Source: patient Exam Limitations: no limitations Patient Subjective Stated Complaint: C/O left ear pain, weakness, vomiting, chills X 2 days. Triage Nursing Assessment: Patient arrived by ambulance. She is hard of hearing. She is alert and oriented. Patient diaphoretic and SOB upon arrival to ED. Patient placed on 02 @ 2L per N/C upon arrival which was decreased from the 4L in the ambulance. Patient noted to have an occassional, non-productive cough. Physician History: Patient here with weakness, dry heaves, not feeling well. Has been going on for approximately 24 to 48 hours. However patient has been feeling worse over the past 2 to 3 months. Has been on a heavy decline per the adult daughter who is with the patient. She states that just prior to coming to the hospital, she was getting her mom ready to leave her other sister's house. The patient suddenly became clammy, diaphoretic, near syncopal. Therefore, called EMS and arrives to the hospital. Severity: mild Modifying Factors: Improves With: movement Associated Symptoms: nausea Allergies/Adverse Reactions: codeine [Codeine] Allergy (Severe, Verified 01/27/22 12:35) Hives clarithromycin Allergy (Intermediate, Verified 01/27/22 12:35) Nausea doxycycline Allergy (Intermediate, Verified 01/27/22 12:35) Hives Home Medications: Atorvastatin Calcium 20 mg PO HS 02/22/13 [History] Levothyroxine Sodium 50 Mcg [Synthroid 50 Mcg] 50 mcg PO DAILY 02/22/13 [History] Clopidogrel Bisulfate [PLAVIX Tablet] 75 mg PO EVENING MEAL 10/12/14 [History] PANTOPRAZOLE 40 mg Tablet [Protonix 40MG Tablet] 1 tab PO DAILY 05/14/17 [History] Pioglitazone HCl [Actos] 1 tab PO DAILY 05/14/17 [History] Bumetanide 1 mg [Bumex 1 mg] 1 mg PO DAILY 03/01/18 [History] Citalopram Hydrobromide [Citalopram HBr] 20 mg PO HS 03/01/18 [History] Albuterol Sulfate [Proair Hfa] 1 inh PO UD 08/28/21 [History] Alendronate Sodium 70 mg [Fosamax 70 MG] 70 mg PO Q7D@0600 08/28/21 [History] Calcifediol [Rayaldee] 30 mcg PO DAILY 08/28/21 [History] Potassium Chloride 10 meq PO DAILY 08/28/21 [History] Trazodone HCl 50 mg [Desyrel 50 mg] 50 mg PO DAILY 08/28/21 [History] Hx Tetanus, Diphtheria Vaccination/Date Given: Yes Hx Influenza Vaccination/Date Given: No Hx Pneumococcal Vaccination/Date Given: Yes Immunizations Up to Date: Yes Travel Risk - International Travel Have you traveled outside of the country in past 3 weeks: No - Coronavirus Screening Are you exhibiting any of the following symptoms?: Yes Symptoms: Shortness of Breath, Headaches/Body Aches/Fatigue Close contact with a COVID-19 positive Pt in past 14-21 Days: Yes - Vaccine Status Have you recieved a Covid-19 vaccination: No - Review of Systems Constitutional: Other (Clammy, near syncopal), No Fever, No Chills Eyes: No Symptoms Ears, Nose, & Throat: No Symptoms Respiratory: No Cough, No Dyspnea Cardiac: No Chest Pain, No Edema, No Syncope Abdominal/Gastrointestinal: Nausea (Nausea with dry heaving), No Abdominal Pain, No Vomiting, No Diarrhea Genitourinary Symptoms: No Dysuria Musculoskeletal: No Back Pain, No Neck Pain Skin: No Rash Neurological: No Dizziness, No Focal Weakness, No Sensory Changes Psychological: No Symptoms Endocrine: No Symptoms All Other Systems: Reviewed and Negative - Past Medical History Pertinent Past Medical History: Yes Neurological History: Alzheimer's Disease ENT History: Cataracts Cardiac History: High Cholesterol, Hypertension Respiratory History: Bronchitis, COPD Endocrine Medical History: Diabetes Type II, Hypothyroidism Musculoskeletal History: Arthritis, Osteoporosis GI Medical History: GERD, Ulcer, Other History: No Pertinent History Psycho-Social History: Anxiety, Depression, Panic Disorder Female Reproductive Disorders: No Pertinent History Other Medical History: bronchitis - Past Surgical History Past Surgical History: Yes Neuro Surgical History: No Pertinent History Cardiac: No Pertinent History Respiratory: No Pertinent History Gastrointestinal: No Pertinent History Genitourinary: No Pertinent History Musculoskeletal: No Pertinent History Female Surgical History: Tubal Ligation Other Surgical History: Bladder tie up - Social History Smoking Status: Former smoker How long have you smoked: 42 Exposure to second hand smoke: No Alcohol Use: None Drug Use: none Patient Lives Alone: No - Nursing Vital Signs Nursing Vital Signs: Initial Vital Signs Temperature 98.6 F 01/27/22 12:36 Pulse Rate 71 01/27/22 12:36 Respiratory Rate 18 01/27/22 12:36 Blood Pressure 138/65 01/27/22 12:36 O2 Sat by Pulse Oximetry 95 01/27/22 12:36 Pain Scale Pain Intensity 0 - Physical Exam General Appearance: no apparent distress, alert Eye Exam: PERRL/EOMI, eyes nml inspection Ears, Nose, Throat Exam: normal ENT inspection, TMs normal, pharynx normal, moist mucous membranes, other (Left external ear canal appears inflamed, red, possible otitis externa) Neck Exam: normal inspection, non-tender, supple, full range of motion Respiratory Exam: normal breath sounds, lungs clear, No respiratory distress Cardiovascular Exam: regular rate/rhythm, normal heart sounds, normal peripheral pulses Gastrointestinal/Abdomen Exam: soft, normal bowel sounds, No tenderness, No mass Back Exam: normal inspection, normal range of motion, No CVA tenderness, No vertebral tenderness Extremity Exam: normal inspection, normal range of motion, pelvis stable Neurologic Exam: alert, oriented x 3, cooperative, normal mood/affect, nml cerebellar function, nml station & gait, sensation nml, No motor deficits Skin Exam: normal color, warm, dry, No rash Lymphatic Exam: No adenopathy SpO2: 95 - Course Nursing assessment & vital signs reviewed: Yes EKG Interpreted by Me: Sinus Rhythm Ordered Tests: Active Orders 24 hr Category Date Time Status Brass Sorter STAT Care 01/27/22 12:41 Active EKG-ER Only STAT Care 01/27/22 12:40 Active IV Insertion STAT Care 01/27/22 12:40 Active ABDOMEN AND PELVIS W/0 CONTRAS [CT] Stat Exams 01/27/22 13:48 Taken CHEST 2 VIEWS (PA AND LAT) Stat Exams 01/27/22 12:41 Taken CHEST WITHOUT CONTRAST [CT] Stat Exams 01/27/22 13:48 Taken CBC W DIFF Stat Lab 01/27/22 12:50 Completed CMP Stat Lab 01/27/22 12:50 Completed Erythrocyte Sedimentation Rate Stat Lab 01/27/22 12:50 Completed LIPASE Stat Lab 01/27/22 12:50 Completed Lactic Acid Stat Lab 01/27/22 12:40 Completed MAGNESIUM Stat Lab 01/27/22 12:50 Completed NT PRO BNP Stat Lab 01/27/22 12:50 Completed TROPONIN Q4H Lab 01/27/22 12:50 Completed TROPONIN Q4H Lab 01/27/22 16:45 Ordered TROPONIN Q4H Lab 01/27/22 20:45 Ordered UA W/RFX CULTURE Stat Lab 01/27/22 12:58 Completed Medication Summary Generic Name Dose Route Start Last Admin Trade Name Freq PRN Reason Stop Dose Admin Sodium Chloride 1,000 mls @ 250 mls/hr 01/27/22 12:40 01/27/22 13:00 Sodium Chloride 0.9% 1000 Ml IV 01/27/22 16:39 250 mls/hr .Q4H STA Administration Discontinued Medications Generic Name Dose Route Start Last Admin Trade Name Freq PRN Reason Stop Dose Admin Diphenhydramine HCl 12.5 mg 01/27/22 13:49 01/27/22 14:10 Diphenhydramine Hcl 50 Mg/Ml Vial IV 01/27/22 13:50 12.5 mg STAT ONE Administration Diphenhydramine HCl Confirm 01/27/22 13:58 Diphenhydramine Hcl 50 Mg/Ml Vial Administered 01/27/22 13:59 Dose 50 mg .ROUTE .STK-MED ONE Sodium Chloride Confirm 01/27/22 12:55 Sodium Chloride 0.9% 1000 Ml Administered 01/27/22 12:56 Dose 1,000 mls @ ud .ROUTE .STK-MED ONE Metoclopramide HCl 10 mg 01/27/22 13:49 01/27/22 14:07 Metoclopramide Hcl 10 Mg/2 Ml Vial IV 01/27/22 13:50 10 mg STAT ONE Administration Metoclopramide HCl Confirm 01/27/22 13:58 Metoclopramide Hcl 10 Mg/2 Ml Vial Administered 01/27/22 13:59 Dose 10 mg .ROUTE .STK-MED ONE Ondansetron HCl 8 mg 01/27/22 13:49 01/27/22 14:02 Ondansetron Hcl 4 Mg/2 Ml Vial IV 01/27/22 13:50 8 mg STAT ONE Administration Ondansetron HCl Confirm 01/27/22 13:58 Ondansetron Hcl 4 Mg/2 Ml Vial Administered 01/27/22 13:59 Dose 8 mg .ROUTE .STK-MED ONE Lab/Rad Data: Laboratory Result Diagrams 01/27/22 12:50 01/27/22 12:50 Laboratory Results 01/27/22 01/27/22 01/27/22 Range/Units 13:51 12:58 12:50 WBC (4.0-10.5) x10^3/uL RBC (4.1-5.4) x10^6/uL Hgb (12.0-16.0) g/dL Hct (35-47) % MCV (78-100) fL MCH (26-32) pg MCHC (32-36) g/dL RDW (11.5-14.0) % Plt Count (150-450) x10^3/uL MPV (7.5-11.0) fL Gran % (36.0-66.0) % Immature Gran % (Auto) (0.00-0.4) % Nucleat RBC Rel Count (0.00-0.1) % Eos # (Auto) (0-0.5) x10^3/uL Immature Gran # (Auto) (0.00-0.03) x10^3u/L Absolute Lymphs (auto) (1.0-4.6) x10^3/uL Absolute Monos (auto) (0.0-1.3) x10^3/uL Absolute Nucleated RBC (0.00-0.01) x10^3u/L Lymphocytes % (24.0-44.0) % Monocytes % (0.0-12.0) % Eosinophils % (0.00-5.0) % Basophils % (0.0-0.4) % Absolute Granulocytes (1.4-6.9) x10^3/uL Basophils # (0-0.4) x10^3/uL ESR (0-20) mm/hr Sodium (137-145) mmol/L Potassium (3.5-5.1) mmol/L Chloride (98-107) mmol/L Carbon Dioxide (22-30) mmol/L Anion Gap (5-15) MEQ/L BUN (7-17) mg/dL Creatinine (0.52-1.04) mg/dL Estimated GFR ML/MIN Glucose (74-106) mg/dL Lactic Acid (0.4-2.0) Calcium (8.4-10.2) mg/dL Magnesium (1.6-2.3) mg/dL Total Bilirubin (0.2-1.3) mg/dL AST (14-36) U/L ALT (0-35) U/L Alkaline Phosphatase (38-126) U/L Troponin I 0.021 (0.000-0.034) ng/mL NT-Pro-B Natriuret Pep (0-1800) pg/mL Serum Total Protein (6.3-8.2) g/dL Albumin (3.5-5.0) g/dL Lipase (23-300) U/L Urinalys Dipstick Clnc MAIN LAB Urine Color YELLOW (YELLOW) Urine Appearance CLEAR (CLEAR) Urine pH 5.5 (5-6) Ur Specific Brooten 1.025 (1.005-1.025) POC Urine Protein Conf TRACE (Negative) Urine Ketones NEGATIVE (NEGATIVE) Urine Nitrite NEGATIVE (NEGATIVE) Urine Bilirubin NEGATIVE (NEGATIVE) Urine Urobilinogen 0.2 (0-1) mg/dL Urine Leukocytes NEGATIVE (NEGATIVE) Urine WBC (Auto) 3-5 (0-5) /HPF Urine RBC (Auto) 0-2 (0-2) /HPF U Hyaline Cast (Auto) 3-5 (0-2) /LPF U Epithel Cells (Auto) RARE (FEW) /HPF Urine Bacteria (Auto) Not Reportable Urine RBC NEGATIVE (0-5) Jaylan/ul Urine Mucus (Auto) SLIGHT (NEGATIVE) /HPF Ur Culture Indicated? NO Urine Glucose NEGATIVE (NEGATIVE) mg/dL Influenza Type A Ag NEGATIVE (NEGATIVE) Influenza Type B Ag NEGATIVE (NEGATIVE) RSV (PCR) NEGATIVE (Negative) SARS-CoV-2 (PCR) POSITIVE A (NEGATIVE) 01/27/22 01/27/22 01/27/22 Range/Units 12:50 12:50 12:40 WBC 3.7 L (4.0-10.5) x10^3/uL RBC 4.30 (4.1-5.4) x10^6/uL Hgb 13.0 (12.0-16.0) g/dL Hct 41.5 (35-47) % MCV 96.5 (78-100) fL MCH 30.2 (26-32) pg MCHC 31.3 L (32-36) g/dL RDW 14.3 H (11.5-14.0) % Plt Count 198 (150-450) x10^3/uL MPV 9.4 (7.5-11.0) fL Gran % 60.7 (36.0-66.0) % Immature Gran % (Auto) 0.5 H (0.00-0.4) % Nucleat RBC Rel Count 0.0 (0.00-0.1) % Eos # (Auto) 0 (0-0.5) x10^3/uL Immature Gran # (Auto) 0.02 (0.00-0.03) x10^3u/L Absolute Lymphs (auto) 0.99 L (1.0-4.6) x10^3/uL Absolute Monos (auto) 0.44 (0.0-1.3) x10^3/uL Absolute Nucleated RBC 0.00 (0.00-0.01) x10^3u/L Lymphocytes % 26.5 (24.0-44.0) % Monocytes % 11.8 (0.0-12.0) % Eosinophils % 0.0 (0.00-5.0) % Basophils % 0.5 (0.0-0.4) % Absolute Granulocytes 2.26 (1.4-6.9) x10^3/uL Basophils # 0.02 (0-0.4) x10^3/uL ESR 13 (0-20) mm/hr Sodium 133 L (137-145) mmol/L Potassium 4.1 (3.5-5.1) mmol/L Chloride 99 (98-107) mmol/L Carbon Dioxide 24 (22-30) mmol/L Anion Gap 12.9 (5-15) MEQ/L BUN 19 H (7-17) mg/dL Creatinine 1.33 H (0.52-1.04) mg/dL Estimated GFR 40.1 ML/MIN Glucose 126 H (74-106) mg/dL Lactic Acid 1.1 (0.4-2.0) Calcium 9.1 (8.4-10.2) mg/dL Magnesium 1.8 (1.6-2.3) mg/dL Total Bilirubin 0.50 (0.2-1.3) mg/dL AST 47 H (14-36) U/L ALT 26 (0-35) U/L Alkaline Phosphatase 54 (38-126) U/L Troponin I (0.000-0.034) ng/mL NT-Pro-B Natriuret Pep 1780 (0-1800) pg/mL Serum Total Protein 7.1 (6.3-8.2) g/dL Albumin 4.1 (3.5-5.0) g/dL Lipase 84 (23-300) U/L Urinalys Dipstick Clnc Urine Color (YELLOW) Urine Appearance (CLEAR) Urine pH (5-6) Ur Specific Brooten (1.005-1.025) POC Urine Protein Conf (Negative) Urine Ketones (NEGATIVE) Urine Nitrite (NEGATIVE) Urine Bilirubin (NEGATIVE) Urine Urobilinogen (0-1) mg/dL Urine Leukocytes (NEGATIVE) Urine WBC (Auto) (0-5) /HPF Urine RBC (Auto) (0-2) /HPF U Hyaline Cast (Auto) (0-2) /LPF U Epithel Cells (Auto) (FEW) /HPF Urine Bacteria (Auto) Urine RBC (0-5) Jaylan/ul Urine Mucus (Auto) (NEGATIVE) /HPF Ur Culture Indicated? Urine Glucose (NEGATIVE) mg/dL Influenza Type A Ag (NEGATIVE) Influenza Type B Ag (NEGATIVE) RSV (PCR) (Negative) SARS-CoV-2 (PCR) (NEGATIVE) - Progress Progress: improved Progress Note: 01/27/22 13:47 Plan for basic labs, cardiac markers, EKG, chest x-ray. Patient has a history of some type of abdominal surgery, therefore we will consider a CT chest abdomen pelvis. Fluids, nausea medication 01/27/22 16:18 Patient is feeling much improved with interventions here. CT chest abdomen pelvis shows no obvious abnormality. Patient is COVID-19 positive. She has no vomiting here in the emergency department, no nausea. I did discuss going home versus staying in the hospital with her and her adult daughter. The patient is adamant she would rather go home. She states that she feels more comfortable at home. Patient is on her baseline oxygen. I did turn the oxygen off in the room while she was sleeping. Patient remained above 91% with no change, labored breathing. No other falls or trauma. From my perspective, patient could benefit from a close overnight observational stay. I did explain this to the patient. She still declines even after risks and benefits were described. Plan for close follow-up as an outpatient. Patient may return here for any new or changing symptoms. - Departure Departure Disposition: Home Clinical Impression: COVID-19, Weakness Condition: Stable Critical Care Time: No Referrals: LORENZO GATES [Primary Care Provider] - Follow up/PCP as directed Instructions: COVID-19 Overview
[2022-01-27] MEDS ORDERED: BENADRYL 50 MG/ML IV ONE (13:49)
[2022-01-27] MEDS ORDERED: Zofran 4 MG/2 ML VIAL IV ONE (13:49)
[2022-01-27] MEDS ORDERED: Reglan 10 MG/2 ML IV ONE (13:49)
[2022-01-27] MEDS ORDERED: Reglan 10 MG/2 ML ONE (13:58)
[2022-01-27] MEDS ORDERED: Zofran 4 MG/2 ML VIAL ONE (13:58)
[2022-01-27] MEDS ORDERED: BENADRYL 50 MG/ML ONE (13:58)
[2022-01-27 14:03] LABS: Erythrocyte Sedimentation Rate 13 mm/hr (0-20)
[2022-01-27 14:31] LABS: INFLUENZA A NEGATIVE (NEGATIVE); INFLUENZA B NEGATIVE (NEGATIVE); RESPIRATORY SYNCTIAL VIRUS NEGATIVE (Negative)
[2022-01-27 14:33] VITALS: BP 120/72
[2022-01-27 14:38] LABS: SARS-CoV-2 Xpert Express POSITIVE (NEGATIVE)
[2022-01-27 15:29] VITALS: PULSE 62
[2022-01-27 16:17] VITALS: O2SAT 95
--- NOTE | 2022-01-27 20:33 | XRAY ---
Indication: Vomiting and weakness. Multiple contiguous axial images obtained through the chest without contrast. Comparison: January 26, 2019 Lungs again demonstrates pulmonary emphysema and mild bilateral dependent atelectasis. Left upper lobe demonstrates new spiculated noncalcified masslike opacity measuring at least 2.8 x 1.5 x 1.5 cm concerning for malignancy. Stable atelectasis/scarring just anterior to this. No infiltrate or effusion. Heart is not enlarged. Aorta again mildly arteriosclerotic without aneurysm. No pathologic mediastinal lymphadenopathy. Previous hiatal hernia not seen today presumed sliding-type. Bony thorax intact again with osteopenia, degenerative changes throughout the spine/both shoulders, and remote T7/L1 compression fractures. CT abdomen/pelvis reported separately. Impression: 1. Left upper lobe spiculated masslike opacity worrisome for malignancy. PET/CT may yield further information. 2. Again pulmonary emphysema, left upper lobe atelectasis/scarring, and chronic bony findings. Comment: Preliminary interpretation made by C. No critical discrepancy.
--- NOTE | 2022-01-27 20:35 | XRAY ---
Indication: Weakness. Comparison: November 26, 2020 PA/lateral chest again demonstrates COPD and scattered bilateral fibrosis/scarring. No focal infiltrate, consolidation, or large effusion. Heart not enlarged. Bony thorax intact again with osteopenia and degenerative changes. Impression: Continued nonacute chest with chronic features.
--- NOTE | 2022-01-27 20:37 | XRAY ---
Indication: Vomiting and weakness. Multiple contiguous axial images obtained through the abdomen and pelvis without contrast. Comparison: December 25, 2019 CT chest reported separately. Noncontrasted stomach and bowel loops nonobstructed again with normal appendix and diffuse scattered colonic diverticulosis. Again previous hysterectomy. No free fluid/air. Remaining liver, gallbladder, pancreas, spleen, adrenal glands, kidneys, ureters, and bladder are unremarkable for noncontrast exam. Again heavy scattered aortoiliac calcifications without AAA. Osseous structures intact again with osteopenia, degenerative changes throughout the spine, and remote L1 compression fracture. Impression: 1. Again chronic findings including colonic diverticulosis, arteriosclerotic disease, and chronic bony findings. 2. Remaining CT abdomen/pelvis without contrast exam is negative. Comment: Preliminary interpretation made by [facility]. No critical discrepancy.
== END 2022-01-27 16:49 | disposition home or self-care (01) ==
LOC: ED 12:27
DX: U07.1 COVID-19 (principal); R53.1 Weakness; R55 Syncope and collapse; R11.0 Nausea; E78.5 Hyperlipidemia, unspecified; I10 Essential (primary) hypertension; E11.9 Type 2 diabetes mellitus without complications; J44.9 Chronic obstructive pulmonary disease, unspecified; Z79.02 Long term (current) use of antithrombotics/antiplatelets; Z79.899 Other long term (current) drug therapy; Z28.310 Unvaccinated for COVID-19
CPT/HCPCS: 0241U; 36000; 36415; 71046; 71250; 74176; 80053; 81015; 83605; 83690; 83735; 83880; 84484; 85025; 85652; 93005; 93041; 96360; 96361; 96374; 96375; 99284; J1200; J2405

== ENCOUNTER 2022-03-26 13:15 | Emergency (ER) | payer MEDICARE ==
--- NOTE | 2022-03-26 13:19 | ERPHSYRPT ---
- History of Present Illness Time Seen by Provider: 03/26/22 13:19 Source: patient Exam Limitations: no limitations Physician History: This is an 86-year-old white female who is on Plavix and recently started a Flonase nasal spray. This morning, the patient had significant bleeding from her right nostril which spontaneously stopped on its own. Patient denies injury to the site. She arrives emergency department hemodynamically stable and with no bleeding nasally. Timing/Duration: abrupt onset, this morning Severity: mild Modifying Factors: Improves With: nothing, other (Epistaxis stopped on its own) Associated Symptoms: epistaxis (At home prior to arrival) Allergies/Adverse Reactions: codeine [Codeine] Allergy (Severe, Verified 03/26/22 13:27) Hives clarithromycin Allergy (Intermediate, Verified 03/26/22 13:27) Nausea doxycycline Allergy (Intermediate, Verified 03/26/22 13:27) Hives Home Medications: Atorvastatin Calcium 20 mg PO HS 02/22/13 [History] Levothyroxine Sodium 50 Mcg [Synthroid 50 Mcg] 50 mcg PO DAILY 02/22/13 [History] Clopidogrel Bisulfate [PLAVIX Tablet] 75 mg PO EVENING MEAL 10/12/14 [History] PANTOPRAZOLE 40 mg Tablet [Protonix 40MG Tablet] 1 tab PO DAILY 05/14/17 [History] Pioglitazone HCl [Actos] 1 tab PO DAILY 05/14/17 [History] Bumetanide 1 mg [Bumex 1 mg] 1 mg PO DAILY 03/01/18 [History] Citalopram Hydrobromide [Citalopram HBr] 20 mg PO HS 03/01/18 [History] Albuterol Sulfate [Proair Hfa] 1 inh PO UD 08/28/21 [History] Alendronate Sodium 70 mg [Fosamax 70 MG] 70 mg PO Q7D@0600 08/28/21 [History] Calcifediol [Rayaldee] 30 mcg PO DAILY 08/28/21 [History] Potassium Chloride 10 meq PO DAILY 08/28/21 [History] Trazodone HCl 50 mg [Desyrel 50 mg] 50 mg PO DAILY 08/28/21 [History] ondansetron HCL [Ondansetron HCl] 4 mg PO UD 03/26/22 [History] Hx Tetanus, Diphtheria Vaccination/Date Given: Yes Hx Influenza Vaccination/Date Given: No Hx Pneumococcal Vaccination/Date Given: Yes Travel Risk - International Travel Have you traveled outside of the country in past 3 weeks: No - Coronavirus Screening Are you exhibiting any of the following symptoms?: No Close contact with a COVID-19 positive Pt in past 14-21 Days: No - Vaccine Status Have you recieved a Covid-19 vaccination: No - Review of Systems Constitutional: No Symptoms Eyes: No Symptoms Ears, Nose, & Throat: Epistaxis (At home prior to arrival) Respiratory: No Symptoms Cardiac: No Symptoms Abdominal/Gastrointestinal: No Symptoms Genitourinary Symptoms: No Symptoms Musculoskeletal: No Symptoms Skin: No Symptoms Neurological: No Symptoms Psychological: No Symptoms Endocrine: No Symptoms Hematologic/Lymphatic: No Symptoms Immunological/Allergic: No Symptoms All Other Systems: Reviewed and Negative - Past Medical History Pertinent Past Medical History: Yes Neurological History: Alzheimer's Disease ENT History: Cataracts Cardiac History: High Cholesterol, Hypertension Respiratory History: Bronchitis, COPD Endocrine Medical History: Diabetes Type II, Hypothyroidism Musculoskeletal History: Arthritis, Osteoporosis GI Medical History: GERD, Ulcer, Other History: No Pertinent History Psycho-Social History: Anxiety, Depression, Panic Disorder Female Reproductive Disorders: No Pertinent History Other Medical History: bronchitis - Past Surgical History Past Surgical History: Yes Neuro Surgical History: No Pertinent History Cardiac: No Pertinent History Respiratory: No Pertinent History Gastrointestinal: No Pertinent History Genitourinary: No Pertinent History Musculoskeletal: No Pertinent History Female Surgical History: Tubal Ligation Other Surgical History: Bladder tie up - Social History Smoking Status: Former smoker How long have you smoked: 42 Exposure to second hand smoke: No Alcohol Use: None Drug Use: none Patient Lives Alone: No - Nursing Vital Signs Nursing Vital Signs: Initial Vital Signs Temperature 97.6 F 03/26/22 13:18 Pulse Rate 88 03/26/22 13:18 Blood Pressure 198/83 03/26/22 13:18 O2 Sat by Pulse Oximetry 95 03/26/22 13:18 Pain Scale Pain Intensity 0 - Physical Exam General Appearance: no apparent distress, alert, anxiety Eye Exam: bilateral eye: normal inspection, PERRL, EOMI Ear Exam: bilateral ear: auricle normal Nasal Exam: normal inspection (There there are no clots intraorally or intranasally. There is no evidence of any active bleeding.) Throat Exam: normal, pharynx normal Neck Exam: normal inspection, non-tender, supple, full range of motion Cardiovascular/Respiratory Exam: chest non-tender, no respiratory distress Abdominal Exam: non-tender Neurologic Exam: alert, oriented x 3, cooperative, clerical transcriber II-XII nml as tested, normal mood/affect, nml cerebellar function, nml station & gait, sensation nml Skin Exam: normal color, warm, dry SpO2 Interpretation: normal O2 Delivery: Room Air - Course Nursing assessment & vital signs reviewed: Yes Ordered Tests: Medication Summary Discontinued Medications Generic Name Dose Route Start Last Admin Trade Name Freq PRN Reason Stop Dose Admin Phenylephrine HCl 15 ml 03/26/22 13:48 Neosynephrine 0.5% Nasal [place]/Drops NS 03/26/22 13:49 STAT ONE - Progress Progress: unchanged Counseled pt/family regarding: diagnosis, need for follow-up - Departure Departure Disposition: Home Clinical Impression: Epistaxis, recurrent Condition: Stable Critical Care Time: No Referrals: LORENZO GATES [Primary Care Provider] - Follow up/PCP as directed Additional Instructions: Apply nasal clip if nosebleed starts. Place 3 drops of the Jame-Synephrine nasal drops we provided you no more than every 4 hours if bleeding recurs. Reapply a nasal clip after nasal spray drops instilled. Stop your Plavix until the evening of 03/27/2022. Return to emergency department if you have spontaneous, uncontrolled nosebleed
[2022-03-26 13:27] VITALS: BP 198/83; PULSE 88; O2SAT 95
[2022-03-26] MEDS ORDERED: NEOSYNEPHRINE 0.5% NASAL SPRAY/DROPS NS ONE (13:48)
[2022-03-26] MEDS ORDERED: NEOSYNEPHRINE 0.5% NASAL SPRAY/DROPS ONE (13:56)
== END 2022-03-26 14:12 | disposition home or self-care (01) ==
LOC: ED 13:15
DX: R04.0 Epistaxis (principal); E78.5 Hyperlipidemia, unspecified; I10 Essential (primary) hypertension; E11.9 Type 2 diabetes mellitus without complications; J44.9 Chronic obstructive pulmonary disease, unspecified; Z79.02 Long term (current) use of antithrombotics/antiplatelets; Z79.899 Other long term (current) drug therapy; Z28.310 Unvaccinated for COVID-19
CPT/HCPCS: 99281; A9270-GY

== ENCOUNTER 2023-08-20 15:27 | Observation (INO) | payer MEDICARE ==
--- NOTE | 2023-08-20 15:32 | ERPHSYRPT ---
- History of Present Illness Time Seen by Provider: 08/20/23 15:39 Source: patient Exam Limitations: no limitations Physician History: Patient is an 87-year-old female with a history of dementia per daughter presents to our ED from [facility] for evaluation of of progressive shortness of breath. Patient's symptoms started 2 to 3 days ago. No associated chest pain. No nausea vomiting or diaphoresis. Upon arrival to our ED patient was 88% on room air. Daughter reports patient uses oxygen at night only. However it appears her oxygen requirement has gone up. Symptoms are progressive. Symptoms are moderate in intensity. Activity worsens symptoms. Symptoms improved with rest. Patient denies pain. She voices no other complaints or concerns at this time. Portions of this note were created with voice recognition technology. There may be grammatical, spelling, punctuation or sound alike errors Timing/Duration: today Activities at Onset: none Severity of Dyspnea-Max: moderate Severity of Dyspnea-Current: mild Possible Cause: occasional episodes Modifying Factors: Improves With: nothing Associated Symptoms: denies symptoms Allergies/Adverse Reactions: codeine [Codeine] Allergy (Severe, Verified 08/20/23 15:56) Hives clarithromycin Allergy (Intermediate, Verified 08/20/23 15:56) Nausea doxycycline Allergy (Intermediate, Verified 08/20/23 15:56) Hives Home Medications: Atorvastatin Calcium 20 mg PO HS 02/22/13 [History] Levothyroxine Sodium 50 Mcg [Synthroid 50 Mcg] 50 mcg PO DAILY 02/22/13 [History] PANTOPRAZOLE 40 mg Tablet [Protonix 40MG Tablet] 1 tab PO DAILY 05/14/17 [History] Pioglitazone HCl [Actos] 1 tab PO DAILY 05/14/17 [History] Bumetanide 1 mg [Bumex 1 mg] 1 mg PO DAILY 03/01/18 [History] Citalopram Hydrobromide [Citalopram HBr] 30 mg PO HS 03/01/18 [History] Albuterol Sulfate [Proair Hfa] 1 inh PO UD 08/28/21 [History] Calcifediol [Rayaldee] 30 mcg PO DAILY 08/28/21 [History] Trazodone HCl 50 mg [Desyrel 50 mg] 50 mg PO DAILY 08/28/21 [History] Calcifediol [Rayaldee] 30 mcg PO DAILY 08/20/23 [History] Fluticasone Propionate [Flonase NASAL] 1 spray NS BID 08/20/23 [History] Hx Tetanus, Diphtheria Vaccination/Date Given: Yes Hx Influenza Vaccination/Date Given: No Hx Pneumococcal Vaccination/Date Given: Yes Travel Risk - Vaccine Status Have you recieved a Covid-19 vaccination: No - Review of Systems Constitutional: No Symptoms, No Fever, No Chills Eyes: No Symptoms Ears, Nose, & Throat: No Symptoms Respiratory: No Symptoms, No Cough, No Dyspnea Cardiac: No Symptoms, No Chest Pain, No Edema, No Syncope Abdominal/Gastrointestinal: No Symptoms, No Abdominal Pain, No Nausea, No Vomiting, No Diarrhea Genitourinary Symptoms: No Symptoms, No Dysuria Musculoskeletal: No Symptoms, No Back Pain, No Neck Pain Skin: No Symptoms, No Rash Neurological: No Symptoms, No Dizziness, No Focal Weakness, No Sensory Changes Psychological: No Symptoms Endocrine: No Symptoms Hematologic/Lymphatic: No Symptoms Immunological/Allergic: No Symptoms All Other Systems: Reviewed and Negative - Past Medical History Pertinent Past Medical History: Yes Neurological History: Alzheimer's Disease ENT History: Cataracts Cardiac History: High Cholesterol, Hypertension Respiratory History: Bronchitis, COPD Endocrine Medical History: Diabetes Type II, Hypothyroidism Musculoskeletal History: Arthritis, Osteoporosis GI Medical History: GERD, Ulcer, Other History: No Pertinent History Psycho-Social History: Anxiety, Depression, Panic Disorder Female Reproductive Disorders: No Pertinent History Other Medical History: bronchitis - Past Surgical History Past Surgical History: Yes Neuro Surgical History: No Pertinent History Cardiac: No Pertinent History Respiratory: No Pertinent History Gastrointestinal: No Pertinent History Genitourinary: No Pertinent History Musculoskeletal: No Pertinent History Female Surgical History: Tubal Ligation Other Surgical History: Bladder tie up - Social History Smoking Status: Former smoker How long have you smoked: 42 Exposure to second hand smoke: No Alcohol Use: None Drug Use: none Patient Lives Alone: No - Nursing Vital Signs Nursing Vital Signs: Initial Vital Signs Temperature 98.5 F 08/20/23 15:36 Pulse Rate 77 08/20/23 15:36 Respiratory Rate 20 08/20/23 15:36 Blood Pressure 142/69 08/20/23 15:36 O2 Sat by Pulse Oximetry 90 L 08/20/23 15:36 Pain Scale Pain Intensity 5 - Physical Exam General Appearance: no apparent distress, alert Eye Exam: PERRL/EOMI Ears, Nose, Throat Exam: hearing grossly normal Neck Exam: normal inspection, supple Respiratory Exam: lungs clear, diminished breath sounds Cardiovascular/Chest Exam: normal heart sounds, regular rate/rhythm Abdominal/Gastrointestinal Exam: soft, No tenderness, No distention, No mass Extremity Exam: non-tender, normal range of motion, normal inspection, no calf tenderness, no pedal edema Neurologic Exam: alert, oriented x 3, cooperative, net developer contract II-XII nml as tested, sensation nml, No motor deficits Skin Exam: normal color, warm, No dry Lymphatic Exam: No adenopathy SpO2 Interpretation: normal SpO2: 88 O2 Delivery: Room Air - Course Nursing assessment & vital signs reviewed: Yes EKG Interpreted by Me: RATE (75), Sinus Rhythm, NORMAL AXIS, NORMAL INTERVALS - Radiology Exams Chest X-ray Interpretation: Teleradiologist Report (New lower lung infiltrates possible atelectasis and left upper lobe spiculated mass) Ordered Tests: Active Orders 24 hr Category Date Time Status Automobile Damage Field Appraiser STAT Care 08/20/23 15:30 Active EKG-ER Only STAT Care 08/20/23 15:29 Active IV Insertion STAT Care 08/20/23 15:29 Active Pulse Oximetry (ED) STAT Care 08/20/23 15:29 Active CHEST 1 VIEW (PORTABLE) Stat Exams 08/20/23 15:30 Completed BLOOD CULTURE Stat Lab 08/20/23 15:56 Received CBC W DIFF Stat Lab 08/20/23 15:45 Completed CMP Stat Lab 08/20/23 15:45 Completed Lactic Acid Stat Lab 08/20/23 15:40 Completed TROPONIN Q4H Lab 08/20/23 15:45 Completed TROPONIN Q4H Lab 08/20/23 19:30 Ordered TROPONIN Q4H Lab 08/20/23 23:30 Ordered UA W/RFX UR CULTURE Stat Lab 08/20/23 15:30 Ordered Respiratory Therapy Assessment DAILY RT 08/20/23 15:58 Active Transfer Order Routine Transfer 08/20/23 Ordered Medication Summary Generic Name Dose Route Start Last Admin Trade Name Freq PRN Reason Stop Dose Admin Azithromycin 500 mg in 250 mls @ 250 mls/hr 08/20/23 17:01 Zithromax 500 Mg/ 250 Ml Nacl Premix IV 08/20/23 18:00 STAT STA Discontinued Medications Generic Name Dose Route Start Last Admin Trade Name [place] PRN Reason Stop Dose Admin Albuterol/Ipratropium 3 ml 08/20/23 15:38 08/20/23 15:59 Ipratropium/Albuterol Sulfate 3 Ml Ampul.Neb IH 08/20/23 15:39 3 ml STAT ONE Administration Albuterol/Ipratropium Confirm 08/20/23 15:44 Ipratropium/Albuterol Sulfate 3 Ml Ampul.Neb Administered 08/20/23 15:45 Dose 3 ml IH .STK-MED ONE Methylprednisolone Sodium 0 mg 08/20/23 15:38 08/20/23 16:19 Succinate 125 mg/ Sterile IV 08/20/23 15:39 125 mg Water 2 ml STAT ONE Administration Ceftriaxone Sodium/Dextrose 2 g in 50 mls @ 100 mls/hr 08/20/23 17:01 08/20/23 17:29 Rocephin 2 Gm-D5w 50ml Bag IV 08/20/23 17:30 100 mls/hr STAT STA 100 mls/hr Administration Ceftriaxone Sodium/Dextrose Confirm 08/20/23 17:25 Rocephin 2 Gm-D5w 50ml Bag Administered 08/20/23 17:26 Dose 2 g in 50 mls @ ud IV .STK-MED ONE Methylprednisolone Sodium Succinate Confirm 08/20/23 16:09 Methylprednis Sod Succ 125 Mg/2 Ml Vial Administered 08/20/23 16:10 Dose 125 mg .ROUTE .STK-MED ONE Sterile Water Confirm 08/20/23 16:09 Water For Injection,Sterile 10 Ml Vial Administered 08/20/23 16:10 Dose 10 ml IJ .STK-MED ONE Lab/Rad Data: Laboratory Result Diagrams 08/20/23 15:45 08/20/23 15:45 Laboratory Results 08/20/23 08/20/23 08/20/23 Range/Units 15:54 15:45 15:45 WBC (4.0-10.5) x10^3/uL RBC (4.1-5.4) x10^6/uL Hgb (12.0-16.0) g/dL Hct (35-47) % MCV (78-100) fL MCH (26-32) pg MCHC (32-36) g/dL RDW (11.5-14.0) % Plt Count (150-450) x10^3/uL MPV (7.5-11.0) fL Gran % (36.0-66.0) % Immature Gran % (Auto) (0.00-0.4) % Nucleat RBC Rel Count (0.00-0.1) % Eos # (Auto) (0-0.5) x10^3/uL Immature Gran # (Auto) (0.00-0.03) x10^3u/L Absolute Lymphs (auto) (1.0-4.6) x10^3/uL Absolute Monos (auto) (0.0-1.3) x10^3/uL Absolute Nucleated RBC (0.00-0.01) x10^3u/L Lymphocytes % (24.0-44.0) % Monocytes % (0.0-12.0) % Eosinophils % (0.00-5.0) % Basophils % (0.0-0.4) % Absolute Granulocytes (1.4-6.9) x10^3/uL Basophils # (0-0.4) x10^3/uL Sodium 139 (135-145) mmol/L Potassium 4.3 (3.5-5.1) mmol/L Chloride 109 H (98-107) mmol/L Carbon Dioxide 26 (22-30) mmol/L Anion Gap 9.5 (5-15) MEQ/L BUN 15 (7-17) mg/dL Creatinine 0.99 (0.52-1.04) mg/dL Estimated GFR 54.8 ML/MIN Glucose 118 H (74-106) mg/dL Lactic Acid (0.4-2.0) Calcium 9.1 (8.4-10.2) mg/dL Total Bilirubin 0.30 (0.2-1.3) mg/dL AST 21 (14-36) U/L ALT 14 (0-35) U/L Alkaline Phosphatase 60 (38-126) U/L Troponin I < 0.012 (0.000-0.034) ng/mL Serum Total Protein 6.2 L (6.3-8.2) g/dL Albumin 3.5 (3.5-5.0) g/dL Influenza Type A Ag NEGATIVE (NEGATIVE) Influenza Type B Ag NEGATIVE (NEGATIVE) RSV (PCR) NEGATIVE (NEGATIVE) SARS-CoV-2 (PCR) NEGATIVE (NEGATIVE) 08/20/23 08/20/23 Range/Units 15:45 15:40 WBC 6.1 (4.0-10.5) x10^3/uL RBC 3.42 L (4.1-5.4) x10^6/uL Hgb 9.7 L (12.0-16.0) g/dL Hct 31.6 L (35-47) % MCV 92.4 (78-100) fL MCH 28.4 (26-32) pg MCHC 30.7 L (32-36) g/dL RDW 16.5 H (11.5-14.0) % Plt Count 215 (150-450) x10^3/uL MPV 9.8 (7.5-11.0) fL Gran % 70.7 H (36.0-66.0) % Immature Gran % (Auto) 0.5 H (0.00-0.4) % Nucleat RBC Rel Count 0.0 (0.00-0.1) % Eos # (Auto) 0.04 (0-0.5) x10^3/uL Immature Gran # (Auto) 0.03 (0.00-0.03) x10^3u/L Absolute Lymphs (auto) 1.22 (1.0-4.6) x10^3/uL Absolute Monos (auto) 0.46 (0.0-1.3) x10^3/uL Absolute Nucleated RBC 0.00 (0.00-0.01) x10^3u/L Lymphocytes % 20.0 L (24.0-44.0) % Monocytes % 7.6 (0.0-12.0) % Eosinophils % 0.7 (0.00-5.0) % Basophils % 0.5 (0.0-0.4) % Absolute Granulocytes 4.31 (1.4-6.9) x10^3/uL Basophils # 0.03 (0-0.4) x10^3/uL Sodium (135-145) mmol/L Potassium (3.5-5.1) mmol/L Chloride (98-107) mmol/L Carbon Dioxide (22-30) mmol/L Anion Gap (5-15) MEQ/L BUN (7-17) mg/dL Creatinine (0.52-1.04) mg/dL Estimated GFR ML/MIN Glucose (74-106) mg/dL Lactic Acid 0.9 (0.4-2.0) Calcium (8.4-10.2) mg/dL Total Bilirubin (0.2-1.3) mg/dL AST (14-36) U/L ALT (0-35) U/L Alkaline Phosphatase (38-126) U/L Troponin I (0.000-0.034) ng/mL Serum Total Protein (6.3-8.2) g/dL Albumin (3.5-5.0) g/dL Influenza Type A Ag (NEGATIVE) Influenza Type B Ag (NEGATIVE) RSV (PCR) (NEGATIVE) SARS-CoV-2 (PCR) (NEGATIVE) - Progress Progress: improved Air Movement: fair Progress Note: Case discussed with Dr. Johnson who accepts admission at 5:15 PM 08/20/23 17:17 79-year-old female history of COPD presents to our ED with complaint of shortness of breath. No chest pain. Upon arrival to our ED patient was hypoxic at 80%. She uses oxygen at home at night. Physical exam reveals diminished breath sounds. Vitals otherwise stable. Chest x-ray shows a left upper lobe spiculated opacity likely mass that has enlarged as compared to previous CAT scan. Bilateral lower lobe infiltrates which are new/possible atelectasis. Patient received Solu-Medrol, albuterol nebulizer treatment. Antibiotics. Vital stable. Plan of care discussed with patient. She agrees to admission to [facility] for further evaluation and treatment. Portions of this note were created with voice recognition technology. There may be grammatical, spelling, punctuation or sound alike errors Complexity of problem addressed is high, severe exacerbation oxygen saturation 80% requiring immediate intervention. No critical care time Complex of data reviewed and analyzed is extensive. Test ordered test reviewed. Results analyzed and correlated clinically with history and physical examination. Management discussed with hospitalist who accepts admission to observation. Risk of complication and or risk of morbidity/mortality of patient management is high. Patient requires hospitalization for further evaluation and treatment. Vital stable. Time spent admit patient is approximately 20 minutes. Plan of care established for shared decision making. No social determinants of health present impede follow-up. Portions of this note were created with voice recognition technology. There may be grammatical, spelling, punctuation or sound alike errors 08/20/23 17:34 Blood Culture(s) Obtained: No Antibiotics given: No Counseled pt/family regarding: lab results, diagnosis, rad results - Departure Departure Disposition: Observation Clinical Impression: COPD (chronic obstructive pulmonary disease), Normocytic anemia, Hypoxia, Lung infiltrate Condition: Stable Critical Care Time: No Referrals: LORENZO GATES [Primary Care Provider] - Follow up/PCP as directed Instructions: Chronic Obstructive Pulmonary Disease
[2023-08-20] MEDS ORDERED: DUONEB 0.5-3 MG/3 ml Neb IH ONE (15:44)
[2023-08-20] MEDS: DUONEB 0.5-3 MG/3 ml Neb IH ONE (15:59)
[2023-08-20 16:06] LABS: Absolute Neutrophil Ct (ANC) 4.31 x10^3/uL (1.4-6.9); BASOPHIL % 0.5 % (0.0-0.4); Basophil (Absolute #) 0.03 x10^3/uL (0-0.4); Eosinophil % 0.7 % (0.00-5.0); Eosinophil (Absolute #) 0.04 x10^3/uL (0-0.5); Hematocrit 31.6 % (35-47); Hemoglobin 9.7 g/dL (12.0-16.0); IMMATURE GRAN # 0.03 x10^3u/L (0.00-0.03); IMMATURE GRAN % 0.5 % (0.00-0.4); Lymphocyte (Absolute #) 1.22 x10^3/uL (1.0-4.6); Mean Cell Volume 92.4 fL (78-100); Mean Corpuscular Hemoglobin 28.4 pg (26-32); Mean Corpuscular Hgb Concent. 30.7 g/dL (32-36); Mean Platelet Volume 9.8 fL (7.5-11.0); Monocyte (Absolute #) 0.46 x10^3/uL (0.0-1.3); Monocytes % 7.6 % (0.0-12.0); Neutrophil % 70.7 % (36.0-66.0); Platelet Count 215 x10^3/uL (150-450); Red Blood Count 3.42 x10^6/uL (4.1-5.4); Red Cell Distribution Width 16.5 % (11.5-14.0); White Blood Count 6.1 x10^3/uL (4.0-10.5)
[2023-08-20] MEDS ORDERED: solu-MEDROL ONE (16:09)
[2023-08-20] MEDS ORDERED: Sterile H2O 10 ml IJ ONE (16:09)
[2023-08-20] MEDS: solu-MEDROL 125 MG, Sterile H2O 10 ml 2 ML IV ONE (16:19)
[2023-08-20 16:22] LABS: ALBUMIN 3.5 g/dL (3.5-5.0); ANION GAP 9.5 MEQ/L (5-15); BILIRUBIN,TOTAL 0.3 mg/dL (0.2-1.3); Calcium 9.1 mg/dL (8.4-10.2); Creatinine 1 0.99 mg/dL (0.52-1.04); EST GLOMERULAR FILTRATION RATE 54.8 ML/MIN; Potassium 4.3 mmol/L (3.5-5.1); Total Protein 6.2 g/dL (6.3-8.2)
[2023-08-20 16:43] LABS: INFLUENZA A NEGATIVE (NEGATIVE); INFLUENZA B NEGATIVE (NEGATIVE); RESPIRATORY SYNCTIAL VIRUS NEGATIVE (NEGATIVE); SARS-CoV-2 Xpert Express NEGATIVE (NEGATIVE)
--- NOTE | 2023-08-20 16:50 | XRAY ---
Indication: Short of breath. Comparison: January 27, 2022 Portable chest demonstrates new bilateral lower lung infiltrates/atelectasis, left greater than right without large effusion. Slightly enlarging CT proven left upper lobe spiculated masslike opacity. Heart not enlarged. Bony thorax intact again with osteopenia and degenerative changes.
[2023-08-20] MEDS ORDERED: ROCEPHIN 2 Gm-D5w 50ML BAG** 2 G/50 ML IVPB IV ONE (17:25)
[2023-08-20] MEDS: ROCEPHIN 2 Gm-D5w 50ML BAG** 2 G/50 ML IVPB IV STA (17:29)
[2023-08-20 19:47] LABS: Appearance Clear (Clear); Bacteria None Seen /HPF (None Seen); Bilirubin Negative (Negative); Blood Negative (Negative); Epithelial Cells Rare /HPF (None Seen); Glucose, Urine Negative (Negative); Hyaline Casts NONE SEEN /LPF (0-2); Ketones Trace (Negative); Leukocyte Esterase Negative (Negative); Nitrite Negative (Negative); Ph 6.5 (4.6-8.0); Protein,Urine Dip Negative (Negative); RBC 0-2 /HPF (0-5)
[2023-08-20 20:03] LABS: ADD URINE CULTURE? NO (NO)
[2023-08-20] MEDS ORDERED: HUMULIN R SQ PRN (22:09)
--- NOTE | 2023-08-20 22:19 | PCM.HP ---
History of Present Illness - Chief Complaint Chief Complaint: COPD EXACERBATION Date: 08/20/23 History of Present Illness: 87-year-old with a history of hearing impairment, type 2 diabetes, COPD, hypertension, CHF, and mild dementia, who presents with cough and dyspnea. Patient is brought in by daughter, who gives most of the history. Patient noted onset about 10 days ago of cough productive of clear sputum, associated with progressive worsening of dyspnea. At baseline, patient uses 2 L oxygen at night, and will use her rescue inhaler when she is walking long distances out of the house. However, she is now dyspneic with minimal exertion, having difficulty even walking to the bathroom, and having to use her inhaler after that time. Associated with worsening wheezing. She has tried cough drops and Robitussin, with some relief of the cough, but her coughing has been so severe that she has developed chest soreness. She has also had poor appetite for some time. Denies fevers or sick contacts, or recent change in her medications. Has not been hospitalized or required the use of steroids for at least the last 2 years. In the ED, she was hypoxic to 87%, and was placed on 2.5 L of oxygen. She was also given Rocephin, gentamicin, Solu-Medrol, and DuoNebs. - Review of Systems Constitutional: No Fever Ears, Nose, & Throat: Hearing Changes (chronic), No Ear Pain, No Sinus Drainage, No Throat Swelling, No Hoarse, No Painful Swallowing Respiratory: Cough, Short Of Breath, Wheezing, No Orthopnea, No Stridor Cardiac: Chest Pain (only soreness after coughing), Edema (chronic in legs, unchanged), No Orthopnea, No PND Abdominal/Gastrointestinal: No Symptoms Genitourinary Symptoms: No Symptoms All Other Systems: Reviewed and Negative Medications & Allergies Home Medications: Home Medication List Atorvastatin Calcium 20 mg PO HS 02/22/13 [History Confirmed 08/20/23] Levothyroxine Sodium 50 Mcg [Synthroid 50 Mcg] 50 mcg PO DAILY 02/22/13 [History Confirmed 08/20/23] PANTOPRAZOLE 40 mg Tablet [Protonix 40MG Tablet] 1 tab PO DAILY 05/14/17 [History Confirmed 08/20/23] Pioglitazone HCl [Actos] 1 tab PO DAILY 05/14/17 [History Confirmed 08/20/23] Bumetanide 1 mg [Bumex 1 mg] 1 mg PO DAILY 03/01/18 [History Confirmed 08/20/23] Citalopram Hydrobromide [Citalopram HBr] 30 mg PO HS 03/01/18 [History Confirmed 08/20/23] Albuterol Sulfate [Proair Hfa] 1 inh PO UD 08/28/21 [History Confirmed 08/20/23] Trazodone HCl 50 mg [Desyrel 50 mg] 50 mg PO DAILY 08/28/21 [History Confirmed 08/20/23] Benazepril HCl [Lotensin] 5 mg PO DAILY 08/20/23 [History Confirmed 08/20/23] Montelukast Sodium 10 mg [Singulair 10 MG] 10 mg PO DAILY 08/20/23 [History Confirmed 08/20/23] Pentoxifylline 400 mg PO TID 08/20/23 [History Confirmed 08/20/23] Allergies/Adverse Reactions: Allergies Allergy/AdvReac Type Severity Reaction Status Date / Time codeine [Codeine] Allergy Severe Hives Verified 08/20/23 15:56 clarithromycin Allergy Intermediate Nausea Verified 08/20/23 15:56 doxycycline Allergy Intermediate Hives Verified 08/20/23 15:56 - Past Medical History Past Medical History: Yes Neurological History: No Pertinent History ENT History: Cataracts Cardiac History: High Cholesterol, Hypertension Respiratory History: COPD Endocrine Medical History: Diabetes Type II, Hypothyroidism Musculoskelatal History: Arthritis, Osteoporosis GI Medical History: GERD, Ulcer, Other History: No Pertinent History Pyscho-Social History: Anxiety, Depression, Panic Disorder Reproductive Disorders: No Pertinent History Comment: bronchitis - Female History Are you now?: No - Past Surgical History Past Surgical History: Yes Neuro Surgical History: No Pertinent History Cardiac History: No Pertinent History Respiratory Surgery: No Pertinent History GI Surgical History: No Pertinent History Genitourinary Surgical Hx: No Pertinent History Musculskeletal Surgical Hx: No Pertinent History Female Surgical History: Tubal Ligation Other Surgical History: Bladder tie up, POLYPS REMOVED FROM COLON, ESOPHAGUS STRETCHING Significant Family History: no pertinent family hx - Social History Smoking Status: Former smoker How long have you smoked: 42 Exposure to second hand smoke: Yes Alcohol: None Drug Use: none - Social Determinants of Health Will the patient participate in the screening: Yes Do you worry about a steady place to live?: No Do you have any problems with any of the following?: No known problems In the past 12 months,have you had to go without utilities?: No Have you or anyone in your house had to go without enough: No Transportation Issues: No Has anyone in your support network made you feel unsafe?: No Does the patient want assistance with any of the above?: No - Physical Exam Vital Signs: Vital Signs - 24 hr Temp Pulse Resp BP BP Pulse Ox 08/20/23 19:57 99.0 F 82 175/74 95 08/20/23 19:52 95 08/20/23 18:01 99.0 F 82 16 175/74 93 L 08/20/23 18:00 93 L 08/20/23 17:41 88 L 08/20/23 17:30 164/58 08/20/23 17:00 79 24 152/65 94 L 08/20/23 16:30 73 13 142/65 96 08/20/23 16:03 74 16 94 L 08/20/23 15:55 95 08/20/23 15:36 98.5 F 77 22 142/69 94 L GEN: Lying in bed in no acute distress CV: Regular rate and rhythm, no murmurs, some mild nonpitting edema in bilateral legs PULM: Very minimal end expiratory wheezing, on 2 L oxygen ABD: Soft, non-tender, non-distended. Normoactive bowel sounds PSYCH: Alert, oriented x3, appropriate affect Results - Labs Lab/Micro Results: Lab Results-Last 24 Hours 08/20/23 08/20/23 08/20/23 Range/Units 15:30 15:40 15:45 WBC 6.1 (4.0-10.5) x10^3/uL RBC 3.42 L (4.1-5.4) x10^6/uL Hgb 9.7 L (12.0-16.0) g/dL Hct 31.6 L (35-47) % MCV 92.4 (78-100) fL MCH 28.4 (26-32) pg MCHC 30.7 L (32-36) g/dL RDW 16.5 H (11.5-14.0) % Plt Count 215 (150-450) x10^3/uL MPV 9.8 (7.5-11.0) fL Gran % 70.7 H (36.0-66.0) % Immature Gran % (Auto) 0.5 H (0.00-0.4) % Nucleat RBC Rel Count 0.0 (0.00-0.1) % Eos # (Auto) 0.04 (0-0.5) x10^3/uL Immature Gran # (Auto) 0.03 (0.00-0.03) x10^3u/L Absolute Lymphs (auto) 1.22 (1.0-4.6) x10^3/uL Absolute Monos (auto) 0.46 (0.0-1.3) x10^3/uL Absolute Nucleated RBC 0.00 (0.00-0.01) x10^3u/L Lymphocytes % 20.0 L (24.0-44.0) % Monocytes % 7.6 (0.0-12.0) % Eosinophils % 0.7 (0.00-5.0) % Basophils % 0.5 (0.0-0.4) % Absolute Granulocytes 4.31 (1.4-6.9) x10^3/uL Basophils # 0.03 (0-0.4) x10^3/uL Sodium (135-145) mmol/L Potassium (3.5-5.1) mmol/L Chloride (98-107) mmol/L Carbon Dioxide (22-30) mmol/L Anion Gap (5-15) MEQ/L BUN (7-17) mg/dL Creatinine (0.52-1.04) mg/dL Estimated GFR ML/MIN Glucose (74-106) mg/dL POC Glucometer (74 to 106) mg/dL Lactic Acid 0.9 (0.4-2.0) Calcium (8.4-10.2) mg/dL Total Bilirubin (0.2-1.3) mg/dL AST (14-36) U/L ALT (0-35) U/L Alkaline Phosphatase (38-126) U/L Troponin I (0.000-0.034) ng/mL Serum Total Protein (6.3-8.2) g/dL Albumin (3.5-5.0) g/dL Urine Color Yellow (Yellow) Urine Appearance Clear (Clear) Urine pH 6.5 (4.6-8.0) Ur Specific [place] 1.020 (1.005-1.030) Urine Protein Negative (Negative) Urine Glucose (UA) Negative (Negative) mg/dL Urine Ketones Trace A (Negative) Urine Blood Negative (Negative) Urine Nitrite Negative (Negative) Urine Bilirubin Negative (Negative) Urine Urobilinogen 1.0 A (0.2) mg/dL Ur Leukocyte Esterase Negative (Negative) U Hyaline Cast (Auto) NONE SEEN (0-2) /LPF Urine Microscopic RBC 0-2 (0-5) /HPF Urine Microscopic WBC 3-5 (0-5) /HPF Ur Epithelial Cells Rare (None Seen) /HPF Urine Bacteria None Seen (None Seen) /HPF Urine Culture Reflexed NO (NO) Influenza Type A Ag (NEGATIVE) Influenza Type B Ag (NEGATIVE) RSV (PCR) (NEGATIVE) SARS-CoV-2 (PCR) (NEGATIVE) 08/20/23 08/20/23 08/20/23 Range/Units 15:45 15:45 15:54 WBC (4.0-10.5) x10^3/uL RBC (4.1-5.4) x10^6/uL Hgb (12.0-16.0) g/dL Hct (35-47) % MCV (78-100) fL MCH (26-32) pg MCHC (32-36) g/dL RDW (11.5-14.0) % Plt Count (150-450) x10^3/uL MPV (7.5-11.0) fL Gran % (36.0-66.0) % Immature Gran % (Auto) (0.00-0.4) % Nucleat RBC Rel Count (0.00-0.1) % Eos # (Auto) (0-0.5) x10^3/uL Immature Gran # (Auto) (0.00-0.03) x10^3u/L Absolute Lymphs (auto) (1.0-4.6) x10^3/uL Absolute Monos (auto) (0.0-1.3) x10^3/uL Absolute Nucleated RBC (0.00-0.01) x10^3u/L Lymphocytes % (24.0-44.0) % Monocytes % (0.0-12.0) % Eosinophils % (0.00-5.0) % Basophils % (0.0-0.4) % Absolute Granulocytes (1.4-6.9) x10^3/uL Basophils # (0-0.4) x10^3/uL Sodium 139 (135-145) mmol/L Potassium 4.3 (3.5-5.1) mmol/L Chloride 109 H (98-107) mmol/L Carbon Dioxide 26 (22-30) mmol/L Anion Gap 9.5 (5-15) MEQ/L BUN 15 (7-17) mg/dL Creatinine 0.99 (0.52-1.04) mg/dL Estimated GFR 54.8 ML/MIN Glucose 118 H (74-106) mg/dL POC Glucometer (74 to 106) mg/dL Lactic Acid (0.4-2.0) Calcium 9.1 (8.4-10.2) mg/dL Total Bilirubin 0.30 (0.2-1.3) mg/dL AST 21 (14-36) U/L ALT 14 (0-35) U/L Alkaline Phosphatase 60 (38-126) U/L Troponin I < 0.012 (0.000-0.034) ng/mL Serum Total Protein 6.2 L (6.3-8.2) g/dL Albumin 3.5 (3.5-5.0) g/dL Urine Color (Yellow) Urine Appearance (Clear) Urine pH (4.6-8.0) Ur Specific [place] (1.005-1.030) Urine Protein (Negative) Urine Glucose (UA) (Negative) mg/dL Urine Ketones (Negative) Urine Blood (Negative) Urine Nitrite (Negative) Urine Bilirubin (Negative) Urine Urobilinogen (0.2) mg/dL Ur Leukocyte Esterase (Negative) U Hyaline Cast (Auto) (0-2) /LPF Urine Microscopic RBC (0-5) /HPF Urine Microscopic WBC (0-5) /HPF Ur Epithelial Cells (None Seen) /HPF Urine Bacteria (None Seen) /HPF Urine Culture Reflexed (NO) Influenza Type A Ag NEGATIVE (NEGATIVE) Influenza Type B Ag NEGATIVE (NEGATIVE) RSV (PCR) NEGATIVE (NEGATIVE) SARS-CoV-2 (PCR) NEGATIVE (NEGATIVE) 08/20/23 08/20/23 Range/Units 17:25 20:32 WBC (4.0-10.5) x10^3/uL RBC (4.1-5.4) x10^6/uL Hgb (12.0-16.0) g/dL Hct (35-47) % MCV (78-100) fL MCH (26-32) pg MCHC (32-36) g/dL RDW (11.5-14.0) % Plt Count (150-450) x10^3/uL MPV (7.5-11.0) fL Gran % (36.0-66.0) % Immature Gran % (Auto) (0.00-0.4) % Nucleat RBC Rel Count (0.00-0.1) % Eos # (Auto) (0-0.5) x10^3/uL Immature Gran # (Auto) (0.00-0.03) x10^3u/L Absolute Lymphs (auto) (1.0-4.6) x10^3/uL Absolute Monos (auto) (0.0-1.3) x10^3/uL Absolute Nucleated RBC (0.00-0.01) x10^3u/L Lymphocytes % (24.0-44.0) % Monocytes % (0.0-12.0) % Eosinophils % (0.00-5.0) % Basophils % (0.0-0.4) % Absolute Granulocytes (1.4-6.9) x10^3/uL Basophils # (0-0.4) x10^3/uL Sodium (135-145) mmol/L Potassium (3.5-5.1) mmol/L Chloride (98-107) mmol/L Carbon Dioxide (22-30) mmol/L Anion Gap (5-15) MEQ/L BUN (7-17) mg/dL Creatinine (0.52-1.04) mg/dL Estimated GFR ML/MIN Glucose (74-106) mg/dL POC Glucometer 209 H (74 to 106) mg/dL Lactic Acid (0.4-2.0) Calcium (8.4-10.2) mg/dL Total Bilirubin (0.2-1.3) mg/dL AST (14-36) U/L ALT (0-35) U/L Alkaline Phosphatase (38-126) U/L Troponin I < 0.012 (0.000-0.034) ng/mL Serum Total Protein (6.3-8.2) g/dL Albumin (3.5-5.0) g/dL Urine Color (Yellow) Urine Appearance (Clear) Urine pH (4.6-8.0) Ur Specific [place] (1.005-1.030) Urine Protein (Negative) Urine Glucose (UA) (Negative) mg/dL Urine Ketones (Negative) Urine Blood (Negative) Urine Nitrite (Negative) Urine Bilirubin (Negative) Urine Urobilinogen (0.2) mg/dL Ur Leukocyte Esterase (Negative) U Hyaline Cast (Auto) (0-2) /LPF Urine Microscopic RBC (0-5) /HPF Urine Microscopic WBC (0-5) /HPF Ur Epithelial Cells (None Seen) /HPF Urine Bacteria (None Seen) /HPF Urine Culture Reflexed (NO) Influenza Type A Ag (NEGATIVE) Influenza Type B Ag (NEGATIVE) RSV (PCR) (NEGATIVE) SARS-CoV-2 (PCR) (NEGATIVE) - Radiology Impressions Radiology Exams & Impressions: Radiology Procedures Category Date Time Status CHEST 1 VIEW (PORTABLE) Stat Exams 08/20/23 15:30 Completed Chest x-raybibasilar infiltrates, without full consolidation. Small effusion on the left. Spiculated mass, seen on prior CT. (Images personally reviewed.) - Other Procedures and Tests Respiratory Therapy 08/20/23 22:06 Oxygen Oxymask LPM 2 lpm Assessment/Plan (1) COPD (chronic obstructive pulmonary disease) Current Visit: Yes Status: Acute Assessment & Plan: 87-year-old woman with a history of COPD, DM2, dementia, HTN, and CHF, who presents with acute exacerbation of COPD with likely pneumonia. ## Acute COPD exacerbation increase in baseline oxygen requirement, with increasing dyspnea on exertion and productive sputum. Secondary to likely pneumonia on chest x-ray. Currently requiring 2.5 L of oxygen. Start Solu-Medrol 40 mg IV BID DuoNeb q.4 hours scheduled for now ## Pneumonia likely pneumonia, with bibasilar Lutrate, productive cough. Of note, patient is allergic to macrolides and doxycycline, so coverage for atypicals will require second line therapy. Was given dose of Rocephin in the ED, and dose of azithromycin was ordered, but apparently not given. Start Levaquin 5 mg IV q.24 hours x 5 days ## Type 2 diabetes only on Actos at home. But suspect sugars will increase with use of high-dose steroids for COPD above. Placed on moderate dose sliding scale insulin Hold home Actos for now ## CHF patient has chronic leg swelling, which appears unchanged, and she has no issues with CHF symptoms. Continue home Bumex 1 mg daily ## Peripheral arterial disease Continue home pentoxifylline 4 mg TID ## Hypertension blood pressure currently controlled Continue benazepril 5 mg daily, Bumex 1 mg daily ## Hypothyroidism Continue home levothyroxine 50 mcg daily CODE STATUS: full code Diet: Diabetic Prophylaxis: Lovenox Telemedicine Encounter - Telemedicine Encounter Telemedicine Encounter: The entirety of this encounter was performed via Telemedicine"
[2023-08-20] MEDS: DUONEB 0.5-3 MG/3 ml Neb IH SCH (22:53)
[2023-08-20] MEDS: DESYREL 50 MG PO SCH (23:03)
[2023-08-21 02:11] LABS: Hematocrit 30.3 % (35-47); Hemoglobin 9.4 g/dL (12.0-16.0); Mean Cell Volume 93.2 fL (78-100); Mean Corpuscular Hemoglobin 28.9 pg (26-32); Mean Platelet Volume 9.1 fL (7.5-11.0); Platelet Count 192 x10^3/uL (150-450); Red Blood Count 3.25 x10^6/uL (4.1-5.4); Red Cell Distribution Width 16.2 % (11.5-14.0); White Blood Count 5.7 x10^3/uL (4.0-10.5)
[2023-08-21 02:42] LABS: ANION GAP 8.8 MEQ/L (5-15); Calcium 8.8 mg/dL (8.4-10.2); Creatinine 1 0.86 mg/dL (0.52-1.04); EST GLOMERULAR FILTRATION RATE 64.9 ML/MIN; Potassium 4.7 mmol/L (3.5-5.1)
--- NOTE | 2023-08-21 05:27 | PCM.NOTE ---
Date and Time: 08/21/23520 Subjective Assessment: Ms. Birmingham is an 87-year-old female with a history of hearing impairment, type 2 diabetes, COPD, hypertension, CHF, and mild dementia, who presented 08/20/23 with a 10 day history of cough and dyspnea. At baseline, patient uses 2 L oxygen at night, now at 2.5L continuous. CXR demonstrates new bilateral lung infiltrates L>R and AMANDA spiculated masslike opacity. Lab findings with normocytic anemia otherwise unremarkable. Admitted for COPD exacerbation with pneumonia. 08/21/23: Met with patient and daughter bedside. Patient endorses continued shortness of breath and cough with white sputum. Overall she states she is feeling better since yesterday. Exp wheezing anteriorly and bilateral fine crackles at the bases noted on auscultation. Patient currently on 2L oxygen, baseline is 2L at [facility]. Discussed CXR findings noting spiculated masslike opacity. Patient and daughter state this is a known finding which is being followed outpatient by Dr. Sanchez. Current CXR shows slight enlargement since imaging done 02/05, advised OP follow up with pulmonology. Denies fever, cp, abdominal pain, HERNANDEZ, dizziness, N/V/D. - Review of Systems Constitutional: No Symptoms Eyes: No Symptoms Ears, Nose, & Throat: No Symptoms Respiratory: Cough, Short Of Breath Cardiac: No Symptoms Abdominal/Gastrointestinal: No Symptoms Genitourinary Symptoms: No Symptoms Musculoskeletal: No Symptoms Skin: No Symptoms Neurological: No Symptoms Psychological: No Symptoms Endocrine: No Symptoms Hematologic/Lymphatic: No Symptoms Immunological/Allergic: No Symptoms Objective Exam General Appearance: no apparent distress Neurologic Exam: alert, oriented x 3, cooperative Skin Exam: normal color Eye Exam: PERRL Ears, Nose, Throat Exam: normal ENT inspection Neck Exam: normal inspection Respiratory Exam: crackles/rales, wheezing Cardiovascular Exam: regular rate/rhythm, normal heart sounds Gastrointestinal/Abdomen Exam: soft, normal bowel sounds Extremity Exam: swelling (BLE) Back Exam: normal inspection Pelvic Exam: deferred Rectal Exam: deferred OBJECTIVE DATA Vital Signs: Vital Signs - 24 hr Temp Pulse Resp BP BP Pulse Ox 08/21/23 04:00 83 94 L 08/21/23 03:14 84 18 95 08/21/23 00:00 98.6 F 85 21 162/65 91 L 08/20/23 22:53 78 22 95 08/20/23 19:57 99.0 F 82 175/74 95 08/20/23 19:52 95 08/20/23 18:01 99.0 F 82 16 175/74 93 L 08/20/23 18:00 93 L 08/20/23 17:41 88 L 08/20/23 17:30 164/58 08/20/23 17:00 79 24 152/65 94 L 08/20/23 16:30 73 13 142/65 96 08/20/23 16:03 74 16 94 L 08/20/23 15:55 95 08/20/23 15:36 98.5 F 77 22 142/69 94 L Pain Assessment - Last Documented Pain Intensity 0 Intake and Output: Intake & Output 08/18/23 08/19/23 08/20/23 08/21/23 11:59 11:59 11:59 11:59 Weight 79.4 kg Lab Results: Lab Results-Last 24 Hours 08/20/23 08/20/23 08/20/23 Range/Units 02:09 15:30 15:40 WBC (4.0-10.5) x10^3/uL RBC (4.1-5.4) x10^6/uL Hgb (12.0-16.0) g/dL Hct (35-47) % MCV (78-100) fL MCH (26-32) pg MCHC (32-36) g/dL RDW (11.5-14.0) % Plt Count (150-450) x10^3/uL MPV (7.5-11.0) fL Gran % (36.0-66.0) % Immature Gran % (Auto) (0.00-0.4) % Nucleat RBC Rel Count (0.00-0.1) % Eos # (Auto) (0-0.5) x10^3/uL Immature Gran # (Auto) (0.00-0.03) x10^3u/L Absolute Lymphs (auto) (1.0-4.6) x10^3/uL Absolute Monos (auto) (0.0-1.3) x10^3/uL Absolute Nucleated RBC (0.00-0.01) x10^3u/L Lymphocytes % (24.0-44.0) % Monocytes % (0.0-12.0) % Eosinophils % (0.00-5.0) % Basophils % (0.0-0.4) % Absolute Granulocytes (1.4-6.9) x10^3/uL Basophils # (0-0.4) x10^3/uL Sodium (135-145) mmol/L Potassium (3.5-5.1) mmol/L Chloride (98-107) mmol/L Carbon Dioxide (22-30) mmol/L Anion Gap (5-15) MEQ/L BUN (7-17) mg/dL Creatinine (0.52-1.04) mg/dL Estimated GFR ML/MIN Glucose (74-106) mg/dL POC Glucometer (74 to 106) mg/dL Lactic Acid 0.9 (0.4-2.0) Calcium (8.4-10.2) mg/dL Total Bilirubin (0.2-1.3) mg/dL AST (14-36) U/L ALT (0-35) U/L Alkaline Phosphatase (38-126) U/L Troponin I < 0.012 (0.000-0.034) ng/mL Serum Total Protein (6.3-8.2) g/dL Albumin (3.5-5.0) g/dL Urine Color Yellow (Yellow) Urine Appearance Clear (Clear) Urine pH 6.5 (4.6-8.0) Ur Specific Mascot 1.020 (1.005-1.030) Urine Protein Negative (Negative) Urine Glucose (UA) Negative (Negative) mg/dL Urine Ketones Trace A (Negative) Urine Blood Negative (Negative) Urine Nitrite Negative (Negative) Urine Bilirubin Negative (Negative) Urine Urobilinogen 1.0 A (0.2) mg/dL Ur Leukocyte Esterase Negative (Negative) U Hyaline Cast (Auto) NONE SEEN (0-2) /LPF Urine Microscopic RBC 0-2 (0-5) /HPF Urine Microscopic WBC 3-5 (0-5) /HPF Ur Epithelial Cells Rare (None Seen) /HPF Urine Bacteria None Seen (None Seen) /HPF Urine Culture Reflexed NO (NO) Influenza Type A Ag (NEGATIVE) Influenza Type B Ag (NEGATIVE) RSV (PCR) (NEGATIVE) SARS-CoV-2 (PCR) (NEGATIVE) 08/20/23 08/20/23 08/20/23 Range/Units 15:45 15:45 15:45 WBC 6.1 (4.0-10.5) x10^3/uL RBC 3.42 L (4.1-5.4) x10^6/uL Hgb 9.7 L (12.0-16.0) g/dL Hct 31.6 L (35-47) % MCV 92.4 (78-100) fL MCH 28.4 (26-32) pg MCHC 30.7 L (32-36) g/dL RDW 16.5 H (11.5-14.0) % Plt Count 215 (150-450) x10^3/uL MPV 9.8 (7.5-11.0) fL Gran % 70.7 H (36.0-66.0) % Immature Gran % (Auto) 0.5 H (0.00-0.4) % Nucleat RBC Rel Count 0.0 (0.00-0.1) % Eos # (Auto) 0.04 (0-0.5) x10^3/uL Immature Gran # (Auto) 0.03 (0.00-0.03) x10^3u/L Absolute Lymphs (auto) 1.22 (1.0-4.6) x10^3/uL Absolute Monos (auto) 0.46 (0.0-1.3) x10^3/uL Absolute Nucleated RBC 0.00 (0.00-0.01) x10^3u/L Lymphocytes % 20.0 L (24.0-44.0) % Monocytes % 7.6 (0.0-12.0) % Eosinophils % 0.7 (0.00-5.0) % Basophils % 0.5 (0.0-0.4) % Absolute Granulocytes 4.31 (1.4-6.9) x10^3/uL Basophils # 0.03 (0-0.4) x10^3/uL Sodium 139 (135-145) mmol/L Potassium 4.3 (3.5-5.1) mmol/L Chloride 109 H (98-107) mmol/L Carbon Dioxide 26 (22-30) mmol/L Anion Gap 9.5 (5-15) MEQ/L BUN 15 (7-17) mg/dL Creatinine 0.99 (0.52-1.04) mg/dL Estimated GFR 54.8 ML/MIN Glucose 118 H (74-106) mg/dL POC Glucometer (74 to 106) mg/dL Lactic Acid (0.4-2.0) Calcium 9.1 (8.4-10.2) mg/dL Total Bilirubin 0.30 (0.2-1.3) mg/dL AST 21 (14-36) U/L ALT 14 (0-35) U/L Alkaline Phosphatase 60 (38-126) U/L Troponin I < 0.012 (0.000-0.034) ng/mL Serum Total Protein 6.2 L (6.3-8.2) g/dL Albumin 3.5 (3.5-5.0) g/dL Urine Color (Yellow) Urine Appearance (Clear) Urine pH (4.6-8.0) Ur Specific Mascot (1.005-1.030) Urine Protein (Negative) Urine Glucose (UA) (Negative) mg/dL Urine Ketones (Negative) Urine Blood (Negative) Urine Nitrite (Negative) Urine Bilirubin (Negative) Urine Urobilinogen (0.2) mg/dL Ur Leukocyte Esterase (Negative) U Hyaline Cast (Auto) (0-2) /LPF Urine Microscopic RBC (0-5) /HPF Urine Microscopic WBC (0-5) /HPF Ur Epithelial Cells (None Seen) /HPF Urine Bacteria (None Seen) /HPF Urine Culture Reflexed (NO) Influenza Type A Ag (NEGATIVE) Influenza Type B Ag (NEGATIVE) RSV (PCR) (NEGATIVE) SARS-CoV-2 (PCR) (NEGATIVE) 08/20/23 08/20/23 08/20/23 Range/Units 15:54 17:25 20:32 WBC (4.0-10.5) x10^3/uL RBC (4.1-5.4) x10^6/uL Hgb (12.0-16.0) g/dL Hct (35-47) % MCV (78-100) fL MCH (26-32) pg MCHC (32-36) g/dL RDW (11.5-14.0) % Plt Count (150-450) x10^3/uL MPV (7.5-11.0) fL Gran % (36.0-66.0) % Immature Gran % (Auto) (0.00-0.4) % Nucleat RBC Rel Count (0.00-0.1) % Eos # (Auto) (0-0.5) x10^3/uL Immature Gran # (Auto) (0.00-0.03) x10^3u/L Absolute Lymphs (auto) (1.0-4.6) x10^3/uL Absolute Monos (auto) (0.0-1.3) x10^3/uL Absolute Nucleated RBC (0.00-0.01) x10^3u/L Lymphocytes % (24.0-44.0) % Monocytes % (0.0-12.0) % Eosinophils % (0.00-5.0) % Basophils % (0.0-0.4) % Absolute Granulocytes (1.4-6.9) x10^3/uL Basophils # (0-0.4) x10^3/uL Sodium (135-145) mmol/L Potassium (3.5-5.1) mmol/L Chloride (98-107) mmol/L Carbon Dioxide (22-30) mmol/L Anion Gap (5-15) MEQ/L BUN (7-17) mg/dL Creatinine (0.52-1.04) mg/dL Estimated GFR ML/MIN Glucose (74-106) mg/dL POC Glucometer 209 H (74 to 106) mg/dL Lactic Acid (0.4-2.0) Calcium (8.4-10.2) mg/dL Total Bilirubin (0.2-1.3) mg/dL AST (14-36) U/L ALT (0-35) U/L Alkaline Phosphatase (38-126) U/L Troponin I < 0.012 (0.000-0.034) ng/mL Serum Total Protein (6.3-8.2) g/dL Albumin (3.5-5.0) g/dL Urine Color (Yellow) Urine Appearance (Clear) Urine pH (4.6-8.0) Ur Specific Mascot (1.005-1.030) Urine Protein (Negative) Urine Glucose (UA) (Negative) mg/dL Urine Ketones (Negative) Urine Blood (Negative) Urine Nitrite (Negative) Urine Bilirubin (Negative) Urine Urobilinogen (0.2) mg/dL Ur Leukocyte Esterase (Negative) U Hyaline Cast (Auto) (0-2) /LPF Urine Microscopic RBC (0-5) /HPF Urine Microscopic WBC (0-5) /HPF Ur Epithelial Cells (None Seen) /HPF Urine Bacteria (None Seen) /HPF Urine Culture Reflexed (NO) Influenza Type A Ag NEGATIVE (NEGATIVE) Influenza Type B Ag NEGATIVE (NEGATIVE) RSV (PCR) NEGATIVE (NEGATIVE) SARS-CoV-2 (PCR) NEGATIVE (NEGATIVE) 08/21/23 08/21/23 Range/Units 02:09 02:09 WBC 5.7 (4.0-10.5) x10^3/uL RBC 3.25 L (4.1-5.4) x10^6/uL Hgb 9.4 L (12.0-16.0) g/dL Hct 30.3 L (35-47) % MCV 93.2 (78-100) fL MCH 28.9 (26-32) pg MCHC 31.0 L (32-36) g/dL RDW 16.2 H (11.5-14.0) % Plt Count 192 (150-450) x10^3/uL MPV 9.1 (7.5-11.0) fL Gran % (36.0-66.0) % Immature Gran % (Auto) (0.00-0.4) % Nucleat RBC Rel Count (0.00-0.1) % Eos # (Auto) (0-0.5) x10^3/uL Immature Gran # (Auto) (0.00-0.03) x10^3u/L Absolute Lymphs (auto) (1.0-4.6) x10^3/uL Absolute Monos (auto) (0.0-1.3) x10^3/uL Absolute Nucleated RBC (0.00-0.01) x10^3u/L Lymphocytes % (24.0-44.0) % Monocytes % (0.0-12.0) % Eosinophils % (0.00-5.0) % Basophils % (0.0-0.4) % Absolute Granulocytes (1.4-6.9) x10^3/uL Basophils # (0-0.4) x10^3/uL Sodium 136 (135-145) mmol/L Potassium 4.7 (3.5-5.1) mmol/L Chloride 108 H (98-107) mmol/L Carbon Dioxide 24 (22-30) mmol/L Anion Gap 8.8 (5-15) MEQ/L BUN 16 (7-17) mg/dL Creatinine 0.86 (0.52-1.04) mg/dL Estimated GFR 64.9 ML/MIN Glucose 197 H (74-106) mg/dL POC Glucometer (74 to 106) mg/dL Lactic Acid (0.4-2.0) Calcium 8.8 (8.4-10.2) mg/dL Total Bilirubin (0.2-1.3) mg/dL AST (14-36) U/L ALT (0-35) U/L Alkaline Phosphatase (38-126) U/L Troponin I (0.000-0.034) ng/mL Serum Total Protein (6.3-8.2) g/dL Albumin (3.5-5.0) g/dL Urine Color (Yellow) Urine Appearance (Clear) Urine pH (4.6-8.0) Ur Specific Mascot (1.005-1.030) Urine Protein (Negative) Urine Glucose (UA) (Negative) mg/dL Urine Ketones (Negative) Urine Blood (Negative) Urine Nitrite (Negative) Urine Bilirubin (Negative) Urine Urobilinogen (0.2) mg/dL Ur Leukocyte Esterase (Negative) U Hyaline Cast (Auto) (0-2) /LPF Urine Microscopic RBC (0-5) /HPF Urine Microscopic WBC (0-5) /HPF Ur Epithelial Cells (None Seen) /HPF Urine Bacteria (None Seen) /HPF Urine Culture Reflexed (NO) Influenza Type A Ag (NEGATIVE) Influenza Type B Ag (NEGATIVE) RSV (PCR) (NEGATIVE) SARS-CoV-2 (PCR) (NEGATIVE) Radiology Exams: Radiology Procedures Category Date Time Status CHEST 1 VIEW (PORTABLE) Stat Exams 08/20/23 15:30 Completed Assessment/Plan (1) Acute respiratory failure with hypoxia Current Visit: Yes Status: Acute Assessment & Plan: -2/2 to pneumonia/copd exacerbation -Resp moulton negative -WBC wnl -Supplemental oxygen for goal spo2 88-92% -Treat underlying cause - IV abx levaquin initiated -sputum culture/blood cultures pending Code(s): J96.01 - ACUTE RESPIRATORY FAILURE WITH HYPOXIA (2) COPD exacerbation Current Visit: Yes Status: Acute Assessment & Plan: -Supplemental oxygen as needed to maintain spo2 goal 88-92%, requiring 2.5L, baseline 2L -RT consult -DuoNebs/INH bebe titrate to PRN -CXR reviewed showing superimposed pneumonia, will treat will levaquin due to allergies Code(s): J44.1 - CHRONIC OBSTRUCTIVE PULMONARY DISEASE W (ACUTE) EXACERBATION (3) Pneumonia Current Visit: Yes Status: Acute Qualifiers: Laterality: bilateral Assessment & Plan: -Supplemental oxygen with goal spo2 88-92% -ABG prn if significant hypoxia or lethargy -Sputum/blood cult pending -Resp moulton negative -Levaquin started due to mult allergies, will continue, will transition to PO in 48 hours if pt remains afebrile with clinical improvement Code(s): J18.9 - PNEUMONIA, UNSPECIFIED ORGANISM (4) Diabetes mellitus Current Visit: Yes Status: Acute Assessment & Plan: -ADA diet -SSI -moderate, may need to increase with steroids -A1c -hold actos Code(s): E11.9 - TYPE 2 DIABETES MELLITUS WITHOUT COMPLICATIONS (5) CHF (congestive heart failure) Current Visit: Yes Status: Acute Assessment & Plan: -Does not appear to be in exacerbation -Continue home bumex -Monitor for fluid overload Code(s): I50.9 - HEART FAILURE, UNSPECIFIED (6) PAD (peripheral artery disease) Current Visit: Yes Status: Acute Assessment & Plan: Continue home pentoxifylline 4 mg TID Code(s): I73.9 - PERIPHERAL VASCULAR DISEASE, UNSPECIFIED (7) HTN (hypertension) Current Visit: Yes Status: Acute Assessment & Plan: -stable, Continue benazepril 5 mg daily, Bumex 1 mg daily Code(s): I10 - ESSENTIAL (PRIMARY) HYPERTENSION (8) Hypothyroid Current Visit: Yes Status: Acute Assessment & Plan: Continue home levothyroxine 50 mcg daily CODE STATUS: full code Diet: Diabetic Prophylaxis: Lovenox Code(s): E03.9 - HYPOTHYROIDISM, UNSPECIFIED (9) Lung mass Current Visit: Yes Status: Acute Assessment & Plan: -noted on CXR as slightly enhanced since previous imaging done 02/05, patient states Daniel has been following, will have her follow up as OP Code(s): R91.8 - OTHER NONSPECIFIC ABNORMAL FINDING OF LUNG FIELD
[2023-08-21] MEDS ORDERED: MEDICATION INTERVENTION MC SCH (07:15)
[2023-08-21] MEDS: Levofloxacin 500MG/100ML D5W 500 MG/100 ML BAG IV SCH (09:17)
[2023-08-21] MEDS: solu-MEDROL 40 MG, Sterile H2O 10 ml 1 ML IV SCH (09:17)
[2023-08-21] MEDS: ENOXAPARIN SODIUM SQ SCH (09:17)
[2023-08-21] MEDS: BUMEX 1 MG PO SCH (09:18)
[2023-08-21] MEDS: Lotensin PO SCH (09:18)
[2023-08-21] MEDS: SYNTHROID 50 MCG PO SCH (09:19)
[2023-08-21] MEDS: Protonix 40MG Tablet PO SCH (09:19)
[2023-08-21] MEDS: Singulair 10 MG PO SCH (09:19)
[2023-08-21] MEDS ORDERED: DESYREL 50 MG PO SCH (10:00)
[2023-08-21] MEDS ORDERED: NON-FORMULARY ITEM (Pentoxifylline [Pentoxifylline] 400 MG Tablet.Er) PO SCH (10:00)
[2023-08-21] MEDS: TYLENOL 325 MG PO PRN (14:11)
[2023-08-21] MEDS: DUONEB 0.5-3 MG/3 ml Neb IH PRN (17:34)
[2023-08-21] MEDS: Zithromax 500 MG/ 250 ML NaCl Premix 500 MG/250 ML IVPB IV STA (18:53)
[2023-08-21] MEDS: ZOCOR 20MG PO SCH (21:54)
--- NOTE | 2023-08-22 05:11 | PCM.NOTE ---
Date and Time: 08/22/23 0510 Subjective Assessment: Ms. Birmingham is an 87-year-old female with a history of hearing impairment, type 2 diabetes, COPD, hypertension, CHF, and mild dementia, who presented 08/20/23 with a 10 day history of cough and dyspnea. At baseline, patient uses 2 L oxygen at night, now at 2.5L continuous. CXR demonstrates new bilateral lung infiltrates L>R and AMANDA spiculated masslike opacity. Lab findings with normocytic anemia otherwise unremarkable. Admitted for COPD exacerbation with pneumonia. IP treatment with levaquin. 08/22/23: Met with patient and daughter bedside. Patient states dyspnea improved. Continues with productive cough/clear sputum. Thrush noted on oral exam. Patient denies mouth or throat pain. Daughter has concerns of patient's poor appetite which she reports has been declining over the past two years, but lately it has gotten worse. She has had a three pound weight loss over the past month. She is also concerned that patient has an obstruction and this may be why she does not want to eat. Patient states "I just don't feel like eating." Denies nausea/vomiting, but reports some constipation. KUB ordered noting non- obstructed, non acute abdomen. Will order megace to help with appetite, patient will need to follow with PCP as OP. - Review of Systems Constitutional: No Symptoms Eyes: No Symptoms Ears, Nose, & Throat: No Symptoms Respiratory: Cough, Short Of Breath Cardiac: No Symptoms Abdominal/Gastrointestinal: No Symptoms Genitourinary Symptoms: No Symptoms Musculoskeletal: No Symptoms Skin: No Symptoms Neurological: No Symptoms Psychological: No Symptoms Endocrine: No Symptoms Hematologic/Lymphatic: No Symptoms Immunological/Allergic: No Symptoms Objective Exam General Appearance: no apparent distress Neurologic Exam: alert, oriented x 3, cooperative Skin Exam: normal color Eye Exam: PERRL Ears, Nose, Throat Exam: other (White patches on surface of oral mucosa) Neck Exam: normal inspection Respiratory Exam: crackles/rales, wheezing Cardiovascular Exam: regular rate/rhythm, normal heart sounds Gastrointestinal/Abdomen Exam: soft, normal bowel sounds Extremity Exam: normal inspection Back Exam: normal inspection Pelvic Exam: deferred Rectal Exam: deferred OBJECTIVE DATA Vital Signs: Vital Signs - 24 hr Temp Pulse Resp BP Pulse Ox 08/22/23 04:00 19 08/22/23 00:00 98.1 F 77 20 149/65 96 08/21/23 19:53 98.5 F 89 23 135/62 97 08/21/23 17:37 82 18 96 08/21/23 16:36 85 18 95 08/21/23 16:00 98.1 F 85 18 150/61 95 08/21/23 12:00 97.5 F 82 19 150/68 95 08/21/23 07:24 83 16 95 08/21/23 07:03 98.3 F 82 21 123/64 94 L Pain Assessment - Last Documented Pain Intensity 5 Pain Scale Used 0-10 Pain Scale Intake and Output: Intake & Output 08/19/23 08/20/23 08/21/23 08/22/23 11:59 11:59 11:59 11:59 Intake Total 120 660 Balance 120 660 Weight 79.4 kg Lab Results: Lab Results-Last 24 Hours 08/21/23 08/21/23 Range/Units 06:29 11:26 POC Glucometer 172 H 147 H (74 to 106) mg/dL Radiology Exams: Radiology Procedures Category Date Time Status CHEST 1 VIEW (PORTABLE) Stat Exams 08/20/23 15:30 Completed Multi-Disciplinary Progress Notes: Multi-Disciplinary Progress Notes 08/21/23 07:16 Pharmacy Note by Lionel Harris Please be aware of possible drug interaction with Levaquin and Celexa. May prolong QT interval. Initialized on 08/21/23 07:16 - END OF NOTE Assessment/Plan (1) Acute respiratory failure with hypoxia Current Visit: Yes Status: Acute Assessment & Plan: -2/2 to pneumonia/copd exacerbation -Resp moulton negative -WBC wnl -Supplemental oxygen for goal spo2 88-92% -Treat underlying cause - IV abx levaquin initiated -sputum culture/blood cultures pending Code(s): J96.01 - ACUTE RESPIRATORY FAILURE WITH HYPOXIA (2) COPD exacerbation Current Visit: Yes Status: Acute Assessment & Plan: -Supplemental oxygen as needed to maintain spo2 goal 88-92%, requiring 2.5L, baseline 2L -RT consult -DuoNebs/INH bebe titrate to PRN -CXR reviewed showing superimposed pneumonia, will treat will levaquin due to allergies 08/21: -on 3L, baseline 2L, will attempt to titrate Code(s): J44.1 - CHRONIC OBSTRUCTIVE PULMONARY DISEASE W (ACUTE) EXACERBATION (3) Pneumonia Current Visit: Yes Status: Acute Qualifiers: Laterality: bilateral Assessment & Plan: -Supplemental oxygen with goal spo2 88-92% -ABG prn if significant hypoxia or lethargy -Sputum/blood cult pending -Resp moulton negative -Levaquin started due to mult allergies, will continue, will transition to PO in 48 hours if pt remains afebrile with clinical improvement 08/22/23: -Levaquin converted to PO, renal dosed Code(s): J18.9 - PNEUMONIA, UNSPECIFIED ORGANISM (4) Diabetes mellitus Current Visit: Yes Status: Acute Assessment & Plan: -ADA diet -SSI -moderate, may need to increase with steroids -A1c -hold actos Code(s): E11.9 - TYPE 2 DIABETES MELLITUS WITHOUT COMPLICATIONS (5) CHF (congestive heart failure) Current Visit: Yes Status: Acute Assessment & Plan: -Does not appear to be in exacerbation -Continue home bumex -Monitor for fluid overload 08/21: -Hold bumex Code(s): I50.9 - HEART FAILURE, UNSPECIFIED (6) PAD (peripheral artery disease) Current Visit: Yes Status: Acute Assessment & Plan: Continue home pentoxifylline 4 mg TID Code(s): I73.9 - PERIPHERAL VASCULAR DISEASE, UNSPECIFIED (7) HTN (hypertension) Current Visit: Yes Status: Acute Assessment & Plan: -stable, Continue benazepril 5 mg daily, Bumex 1 mg daily Code(s): I10 - ESSENTIAL (PRIMARY) HYPERTENSION (8) Hypothyroid Current Visit: Yes Status: Acute Assessment & Plan: Continue home levothyroxine 50 mcg daily CODE STATUS: full code Diet: Diabetic Prophylaxis: Lovenox Code(s): E03.9 - HYPOTHYROIDISM, UNSPECIFIED (9) Lung mass Current Visit: Yes Status: Acute Assessment & Plan: -noted on CXR as slightly enhanced since previous imaging done 02/05, patient states Daniel has been following, will have her follow up as OP Code(s): R91.8 - OTHER NONSPECIFIC ABNORMAL FINDING OF LUNG FIELD (10) Thrush, oral -Nystatin susp x 7 days (11) Poor appetite -Pt has been seeing PCP OP, will start megestrol, patient to follow up with PCP for evaluation -Ensure with meals (12) Constipation -Kub unremarkable, no obstruction, add docusate - Code(s): J96.01 - ACUTE RESPIRATORY FAILURE WITH HYPOXIA (2) COPD exacerbation Current Visit: Yes Status: Acute Code(s): J44.1 - CHRONIC OBSTRUCTIVE PULMONARY DISEASE W (ACUTE) EXACERBATION (3) Pneumonia Current Visit: Yes Status: Acute Qualifiers: Laterality: bilateral Code(s): J18.9 - PNEUMONIA, UNSPECIFIED ORGANISM (4) Diabetes mellitus Current Visit: Yes Status: Acute Code(s): E11.9 - TYPE 2 DIABETES MELLITUS WITHOUT COMPLICATIONS (5) CHF (congestive heart failure) Current Visit: Yes Status: Acute Code(s): I50.9 - HEART FAILURE, UNSPECIFIED (6) PAD (peripheral artery disease) Current Visit: Yes Status: Acute Code(s): I73.9 - PERIPHERAL VASCULAR DISEASE, UNSPECIFIED (7) HTN (hypertension) Current Visit: Yes Status: Acute Code(s): I10 - ESSENTIAL (PRIMARY) HYPERTENSION (8) Hypothyroid Current Visit: Yes Status: Acute Code(s): E03.9 - HYPOTHYROIDISM, UNSPECIFIED (9) Lung mass Current Visit: Yes Status: Acute Code(s): R91.8 - OTHER NONSPECIFIC ABNORMAL FINDING OF LUNG FIELD (10) Thrush, oral Current Visit: Yes Status: Acute Code(s): B37.0 - CANDIDAL STOMATITIS (11) Constipation Current Visit: Yes Status: Acute Code(s): K59.00 - CONSTIPATION, UNSPECIFIED (12) Poor appetite Current Visit: Yes Status: Acute Code(s): R63.0 - ANOREXIA
--- NOTE | 2023-08-22 09:36 | XRAY ---
Indication: Abdominal distention. Comparison: None KUB nonacute and nonobstructed with mild diffuse colonic fecal debris. Solid organs unremarkable. Moderate scattered vascular calcifications. Osseous structures intact with osteopenia and mild degenerative changes.
[2023-08-22] MEDS: Nystatin SUSPENSION 60 ML PO SCH (10:02)
[2023-08-22 10:04] LABS: Absolute Neutrophil Ct (ANC) 6.83 x10^3/uL (1.4-6.9); BASOPHIL % 0.1 % (0.0-0.4); Basophil (Absolute #) 0.01 x10^3/uL (0-0.4); Eosinophil (Absolute #) 0 x10^3/uL (0-0.5); Hematocrit 29.5 % (35-47); Hemoglobin 9.3 g/dL (12.0-16.0); IMMATURE GRAN # 0.03 x10^3u/L (0.00-0.03); IMMATURE GRAN % 0.4 % (0.00-0.4); Lymphocyte (Absolute #) 0.94 x10^3/uL (1.0-4.6); Lymphocytes % 11.2 % (24.0-44.0); Mean Cell Volume 91.3 fL (78-100); Mean Corpuscular Hemoglobin 28.8 pg (26-32); Mean Corpuscular Hgb Concent. 31.5 g/dL (32-36); Mean Platelet Volume 9.5 fL (7.5-11.0); Monocyte (Absolute #) 0.56 x10^3/uL (0.0-1.3); Monocytes % 6.7 % (0.0-12.0); Neutrophil % 81.6 % (36.0-66.0); Platelet Count 205 x10^3/uL (150-450); Red Blood Count 3.23 x10^6/uL (4.1-5.4); Red Cell Distribution Width 16.5 % (11.5-14.0); White Blood Count 8.4 x10^3/uL (4.0-10.5)
[2023-08-22] MEDS: ceLEXa 20 MG PO SCH ×2 (10:05→14:39)
[2023-08-22 10:23] LABS: ALBUMIN 3.5 g/dL (3.5-5.0); ANION GAP 9.5 MEQ/L (5-15); BILIRUBIN,TOTAL 0.1 mg/dL (0.2-1.3); Calcium 9.2 mg/dL (8.4-10.2); Creatinine 1 1.2 mg/dL (0.52-1.04); EST GLOMERULAR FILTRATION RATE 43.5 ML/MIN; Potassium 4.5 mmol/L (3.5-5.1); Total Protein 6.1 g/dL (6.3-8.2)
[2023-08-22] MEDS: HUMALOG SQ PRN (11:40)
[2023-08-22] MEDS: Megace Susp PO SCH (14:37)
[2023-08-23 04:55] LABS: BASOPHIL % 0.3 % (0.0-0.4); Basophil (Absolute #) 0.02 x10^3/uL (0-0.4); Eosinophil (Absolute #) 0 x10^3/uL (0-0.5); Hematocrit 30.1 % (35-47); Hemoglobin 9.4 g/dL (12.0-16.0); IMMATURE GRAN # 0.07 x10^3u/L (0.00-0.03); Lymphocyte (Absolute #) 0.58 x10^3/uL (1.0-4.6); Lymphocytes % 8.4 % (24.0-44.0); Mean Cell Volume 90.9 fL (78-100); Mean Corpuscular Hemoglobin 28.4 pg (26-32); Mean Corpuscular Hgb Concent. 31.2 g/dL (32-36); Mean Platelet Volume 9.6 fL (7.5-11.0); Monocyte (Absolute #) 0.11 x10^3/uL (0.0-1.3); Monocytes % 1.6 % (0.0-12.0); Neutrophil % 88.7 % (36.0-66.0); Platelet Count 214 x10^3/uL (150-450); Red Blood Count 3.31 x10^6/uL (4.1-5.4); Red Cell Distribution Width 16.4 % (11.5-14.0); White Blood Count 6.9 x10^3/uL (4.0-10.5)
[2023-08-23 05:21] LABS: ALBUMIN 3.6 g/dL (3.5-5.0); ANION GAP 9.9 MEQ/L (5-15); BILIRUBIN,TOTAL 0.2 mg/dL (0.2-1.3); Calcium 9.1 mg/dL (8.4-10.2); Creatinine 1 1.25 mg/dL (0.52-1.04); EST GLOMERULAR FILTRATION RATE 41.5 ML/MIN; Potassium 4.6 mmol/L (3.5-5.1); Total Protein 6.1 g/dL (6.3-8.2)
--- NOTE | 2023-08-23 05:29 | PCM.NOTE ---
Date and Time: 08/23/23 05 Subjective Assessment: Ms. Birmingham is an 87-year-old female with a history of hearing impairment, type 2 diabetes, COPD, hypertension, CHF, and mild dementia, who presented 08/20/23 with a 10 day history of cough and dyspnea. At baseline, patient uses 2 L oxygen at night, now at 2.5L continuous. CXR demonstrates new bilateral lung infiltrates L>R and AMANDA spiculated masslike opacity. Lab findings with normocytic anemia otherwise unremarkable. Admitted for COPD exacerbation with pneumonia. IP treatment with levaquin. 08/23/23: Objective Data Vital Signs: Vital Signs - 24 hr Temp Pulse Resp BP Pulse Ox 08/22/23 23:41 99.3 F 80 18 139/61 93 L 08/22/23 20:49 88 20 96 08/22/23 19:51 99.9 F 89 20 124/59 96 08/22/23 16:16 79 20 96 08/22/23 16:00 98.7 F 83 18 145/65 90 L 08/22/23 12:00 80 18 164/77 95 08/22/23 08:00 98.2 F 82 18 186/85 97 08/22/23 06:58 84 16 95 Pain Assessment - Last Documented Pain Intensity 0 Pain Scale Used 0-10 Pain Scale Intake and Output: Intake & Output 08/20/23 08/21/23 08/22/23 08/23/23 11:59 11:59 11:59 11:59 Intake Total 120 660 390 Balance 120 660 390 Weight 79.4 kg Lab Results: Lab Results-Last 24 Hours 08/22/23 08/22/23 08/23/23 Range/Units 09:50 09:50 04:30 WBC 8.4 6.9 (4.0-10.5) x10^3/uL RBC 3.23 L 3.31 L (4.1-5.4) x10^6/uL Hgb 9.3 L 9.4 L (12.0-16.0) g/dL Hct 29.5 L 30.1 L (35-47) % MCV 91.3 90.9 (78-100) fL MCH 28.8 28.4 (26-32) pg MCHC 31.5 L 31.2 L (32-36) g/dL RDW 16.5 H 16.4 H (11.5-14.0) % Plt Count 205 214 (150-450) x10^3/uL MPV 9.5 9.6 (7.5-11.0) fL Gran % 81.6 H 88.7 H (36.0-66.0) % Immature Gran % (Auto) 0.4 1.0 H (0.00-0.4) % Nucleat RBC Rel Count 0.0 0.0 (0.00-0.1) % Eos # (Auto) 0 0 (0-0.5) x10^3/uL Immature Gran # (Auto) 0.03 0.07 H (0.00-0.03) x10^3u/L Absolute Lymphs (auto) 0.94 L 0.58 L (1.0-4.6) x10^3/uL Absolute Monos (auto) 0.56 0.11 (0.0-1.3) x10^3/uL Absolute Nucleated RBC 0.00 0.00 (0.00-0.01) x10^3u/L Lymphocytes % 11.2 L 8.4 L (24.0-44.0) % Monocytes % 6.7 1.6 (0.0-12.0) % Eosinophils % 0.0 0.0 (0.00-5.0) % Basophils % 0.1 0.3 (0.0-0.4) % Absolute Granulocytes 6.83 6.10 (1.4-6.9) x10^3/uL Basophils # 0.01 0.02 (0-0.4) x10^3/uL Sodium 137 (135-145) mmol/L Potassium 4.5 (3.5-5.1) mmol/L Chloride 107 (98-107) mmol/L Carbon Dioxide 26 (22-30) mmol/L Anion Gap 9.5 (5-15) MEQ/L BUN 29 H (7-17) mg/dL Creatinine 1.20 H (0.52-1.04) mg/dL Estimated GFR 43.5 ML/MIN Glucose 140 H (74-106) mg/dL Calcium 9.2 (8.4-10.2) mg/dL Total Bilirubin 0.10 L (0.2-1.3) mg/dL AST 26 (14-36) U/L ALT 16 (0-35) U/L Alkaline Phosphatase 54 (38-126) U/L Serum Total Protein 6.1 L (6.3-8.2) g/dL Albumin 3.5 (3.5-5.0) g/dL 08/23/23 Range/Units 04:30 WBC (4.0-10.5) x10^3/uL RBC (4.1-5.4) x10^6/uL Hgb (12.0-16.0) g/dL Hct (35-47) % MCV (78-100) fL MCH (26-32) pg MCHC (32-36) g/dL RDW (11.5-14.0) % Plt Count (150-450) x10^3/uL MPV (7.5-11.0) fL Gran % (36.0-66.0) % Immature Gran % (Auto) (0.00-0.4) % Nucleat RBC Rel Count (0.00-0.1) % Eos # (Auto) (0-0.5) x10^3/uL Immature Gran # (Auto) (0.00-0.03) x10^3u/L Absolute Lymphs (auto) (1.0-4.6) x10^3/uL Absolute Monos (auto) (0.0-1.3) x10^3/uL Absolute Nucleated RBC (0.00-0.01) x10^3u/L Lymphocytes % (24.0-44.0) % Monocytes % (0.0-12.0) % Eosinophils % (0.00-5.0) % Basophils % (0.0-0.4) % Absolute Granulocytes (1.4-6.9) x10^3/uL Basophils # (0-0.4) x10^3/uL Sodium 136 (135-145) mmol/L Potassium 4.6 (3.5-5.1) mmol/L Chloride 102 (98-107) mmol/L Carbon Dioxide 29 (22-30) mmol/L Anion Gap 9.9 (5-15) MEQ/L BUN 36 H (7-17) mg/dL Creatinine 1.25 H (0.52-1.04) mg/dL Estimated GFR 41.5 ML/MIN Glucose 199 H (74-106) mg/dL Calcium 9.1 (8.4-10.2) mg/dL Total Bilirubin 0.20 (0.2-1.3) mg/dL AST 28 (14-36) U/L ALT 19 (0-35) U/L Alkaline Phosphatase 58 (38-126) U/L Serum Total Protein 6.1 L (6.3-8.2) g/dL Albumin 3.6 (3.5-5.0) g/dL Radiology Exams: Radiology Procedures Category Date Time Status KUB Urgent Exams 08/22/23 09:06 Completed Multi-Disciplinary Progress Notes: Multi-Disciplinary Progress Notes 08/22/23 12:01 Case Management Note by Macey Espitia S/Alexandra MCKEON- PATIENT HAS CURRENT ORDERS FOR OXYGEN AT 2L/NC 07/01 WITH PORTABILITY Initialized on 08/22/23 12:01 - END OF NOTE 08/22/23 11:51 Case Management Note by Macey Espitia/Alexandra PATIENT AND DAUGHTER- THEY BOTH DENY ANY NEW NEEDS AT TIME OF DC. PATIENT'S DAUGHTER IS A PAID CAREGIVER THRU [employer] AND IS WITH HER 07/01.SHE REPORTS THEY HAVE EVERYTHING THEY NEED AND DENY ANY NEW NEEDS. DAUGHTER REPORTS SHE HAS NURSE THAT COME IN EVERY 3-4 MONTHS BUT DAUGHTER DOES NOT KNOW WHO THIS IS THRU. REACHED OUT TO [employer]RIVE TO TRY TO FIND OUT THIS INFORMATION- [facility]. [facility]W [facility]- THEY CHECKED HER DANYA RECORDS AND NO HHC IS LISTED. ALSO CHECKED WITH [facility]- THIS IS NOT A SERVICE THEY OFFER Initialized on 08/22/23 11:51 - END OF NOTE 08/22/23 10:39 Pharmacy Note by Lionel Harris Creatinine worse at 1.2 today. Levaquin decreased to 250mg dose per renal policy. Initialized on 08/22/23 10:39 - END OF NOTE Assessment/Plan (1) Acute respiratory failure with hypoxia Current Visit: Yes Status: Acute Assessment & Plan: -2/2 to pneumonia/copd exacerbation -Resp moulton negative -WBC wnl -Supplemental oxygen for goal spo2 88-92% -Treat underlying cause - IV abx levaquin initiated -sputum culture/blood cultures pending Code(s): J96.01 - ACUTE RESPIRATORY FAILURE WITH HYPOXIA (2) COPD exacerbation Current Visit: Yes Status: Acute Assessment & Plan: -Supplemental oxygen as needed to maintain spo2 goal 88-92%, requiring 2.5L, baseline 2L -RT consult -DuoNebs/INH bebe titrate to PRN -CXR reviewed showing superimposed pneumonia, will treat will levaquin due to allergies 08/21: -on 3L, baseline 2L, will attempt to titrate Code(s): J44.1 - CHRONIC OBSTRUCTIVE PULMONARY DISEASE W (ACUTE) EXACERBATION (3) Pneumonia Current Visit: Yes Status: Acute Qualifiers: Laterality: bilateral Assessment & Plan: -Supplemental oxygen with goal spo2 88-92% -ABG prn if significant hypoxia or lethargy -Sputum/blood cult pending -Resp moulton negative -Levaquin started due to mult allergies, will continue, will transition to PO in 48 hours if pt remains afebrile with clinical improvement 08/22/23: -Levaquin converted to PO, renal dosed Code(s): J18.9 - PNEUMONIA, UNSPECIFIED ORGANISM (4) Diabetes mellitus Current Visit: Yes Status: Acute Assessment & Plan: -ADA diet -SSI -moderate, may need to increase with steroids -A1c -hold actos Code(s): E11.9 - TYPE 2 DIABETES MELLITUS WITHOUT COMPLICATIONS (5) CHF (congestive heart failure) Current Visit: Yes Status: Acute Assessment & Plan: -Does not appear to be in exacerbation -Continue home bumex -Monitor for fluid overload 08/21: -Hold bumex Code(s): I50.9 - HEART FAILURE, UNSPECIFIED (6) PAD (peripheral artery disease) Current Visit: Yes Status: Acute Assessment & Plan: Continue home pentoxifylline 4 mg TID Code(s): I73.9 - PERIPHERAL VASCULAR DISEASE, UNSPECIFIED (7) HTN (hypertension) Current Visit: Yes Status: Acute Assessment & Plan: -stable, Continue benazepril 5 mg daily, Bumex 1 mg daily Code(s): I10 - ESSENTIAL (PRIMARY) HYPERTENSION (8) Hypothyroid Current Visit: Yes Status: Acute Assessment & Plan: Continue home levothyroxine 50 mcg daily CODE STATUS: full code Diet: Diabetic Prophylaxis: Lovenox Code(s): E03.9 - HYPOTHYROIDISM, UNSPECIFIED (9) Lung mass Current Visit: Yes Status: Acute Assessment & Plan: -noted on CXR as slightly enhanced since previous imaging done 02/05, patient states Daniel has been following, will have her follow up as OP Code(s): R91.8 - OTHER NONSPECIFIC ABNORMAL FINDING OF LUNG FIELD (10) Thrush, oral -Nystatin susp x 7 days (11) Poor appetite -Pt has been seeing PCP OP, will start megestrol, patient to follow up with PCP for evaluation -Ensure with meals (12) Constipation -Kub unremarkable, no obstruction, add docusate - Code(s): J96.01 - ACUTE RESPIRATORY FAILURE WITH HYPOXIA (2) COPD exacerbation Current Visit: Yes Status: Acute Code(s): J44.1 - CHRONIC OBSTRUCTIVE PULMONARY DISEASE W (ACUTE) EXACERBATION (3) Pneumonia Current Visit: Yes Status: Acute Qualifiers: Laterality: bilateral Code(s): J18.9 - PNEUMONIA, UNSPECIFIED ORGANISM (4) Diabetes mellitus Current Visit: Yes Status: Acute Code(s): E11.9 - TYPE 2 DIABETES MELLITUS WITHOUT COMPLICATIONS (5) CHF (congestive heart failure) Current Visit: Yes Status: Acute Code(s): I50.9 - HEART FAILURE, UNSPECIFIED (6) PAD (peripheral artery disease) Current Visit: Yes Status: Acute Code(s): I73.9 - PERIPHERAL VASCULAR DISEASE, UNSPECIFIED (7) HTN (hypertension) Current Visit: Yes Status: Acute Code(s): I10 - ESSENTIAL (PRIMARY) HYPERTENSION (8) Hypothyroid Current Visit: Yes Status: Acute Code(s): E03.9 - HYPOTHYROIDISM, UNSPECIFIED (9) Lung mass Current Visit: Yes Status: Acute Code(s): R91.8 - OTHER NONSPECIFIC ABNORMAL FINDING OF LUNG FIELD (10) Thrush, oral Current Visit: Yes Status: Acute Code(s): B37.0 - CANDIDAL STOMATITIS (11) Constipation Current Visit: Yes Status: Acute Code(s): K59.00 - CONSTIPATION, UNSPECIFIED (12) Poor appetite Current Visit: Yes Status: Acute Code(s): R63.0 - ANOREXIA
[2023-08-23 06:15] LABS: Slide Review 1 YES
[2023-08-23] MEDS: Levofloxacin 250MG Tablet PO SCH (09:19)
[2023-08-23] MEDS: DELTASONE 20 MG PO SCH (09:19)
[2023-08-23] MEDS ORDERED: Levaquin 250MG/50ML D5W 250 MG/50 ML BAG IV SCH (10:00)
--- NOTE | 2023-08-23 11:44 | PCM.DS ---
Discharge Summary Date of Admission: 08/20/23 17:55 Date of Discharge: 08/23/23 Admitting Physician: KATHY GAMEZ MD Primary Care Provider: LORENZO GATES Allergies Allergies codeine [Codeine] Allergy (Severe, Verified 08/20/23 15:56) [facility] clarithromycin Allergy (Intermediate, Verified 08/20/23 15:56) Nausea doxycycline Allergy (Intermediate, Verified 08/20/23 15:56) [facility] Summary - Hospital Course Hospital Course: Ms. Birmingham is an 87-year-old female with a history of hearing impairment, type 2 diabetes, COPD, hypertension, CHF, and mild dementia, who presented 08/20/23 with a 10 day history of cough and dyspnea. At baseline, patient uses 2 L oxygen at night, now at 2.5L continuous. CXR demonstrates new bilateral lung infiltrates L>R and AMANDA spiculated masslike opacity. Lab findings with normocytic anemia otherwise unremarkable. Admitted for COPD exacerbation with pneumonia. IP treatment with levaquin. Dyspnea has improved. Now at baseline oxygen. She did have thrush orally and receiving Nystatin. Discussed imaging findings noting enhanced spiculated opacity. Patient states this is a known and being followed by her singer and unloader, as imaging is showing enhancement, I have advised patient to follow up with pulmonology. Daughter also noted poor appetite for some time but has gotten worse in the past month requesting appetite stimulant. We have started patient on megestrol, advised follow up with PCP. She is requesting discharge today. Will dismiss her on abx/steroid/megace/nystatin. Discharge Note New Diagnosis: COPD exac/pneumonia New Medications: levaquin/medrol dose pack/megace/nystatin Follow Up: PCP/pulm Latest Assessment & Plan (1) Acute respiratory failure with hypoxia Current Visit: Yes Status: Acute Assessment & Plan: -2/2 to pneumonia/copd exacerbation -Resp moulton negative -WBC wnl -Supplemental oxygen for goal spo2 88-92% -Treat underlying cause - IV abx levaquin initiated -sputum culture/blood cultures pending Code(s): J96.01 - ACUTE RESPIRATORY FAILURE WITH HYPOXIA (2) COPD exacerbation Current Visit: Yes Status: Acute Assessment & Plan: -Supplemental oxygen as needed to maintain spo2 goal 88-92%, requiring 2.5L, baseline 2L -RT consult -DuoNebs/INH bebe titrate to PRN -CXR reviewed showing superimposed pneumonia, will treat will levaquin due to allergies 08/21: -on 3L, baseline 2L, will attempt to titrate Code(s): J44.1 - CHRONIC OBSTRUCTIVE PULMONARY DISEASE W (ACUTE) EXACERBATION (3) Pneumonia Current Visit: Yes Status: Acute Qualifiers: Laterality: bilateral Assessment & Plan: -Supplemental oxygen with goal spo2 88-92% -ABG prn if significant hypoxia or lethargy -Sputum/blood cult pending -Resp moulton negative -Levaquin started due to mult allergies, will continue, will transition to PO in 48 hours if pt remains afebrile with clinical improvement 08/22/23: -Levaquin converted to PO, renal dosed Code(s): J18.9 - PNEUMONIA, UNSPECIFIED ORGANISM (4) Diabetes mellitus Current Visit: Yes Status: Acute Assessment & Plan: -ADA diet -SSI -moderate, may need to increase with steroids -A1c -hold actos Code(s): E11.9 - TYPE 2 DIABETES MELLITUS WITHOUT COMPLICATIONS (5) CHF (congestive heart failure) Current Visit: Yes Status: Acute Assessment & Plan: -Does not appear to be in exacerbation -Continue home bumex -Monitor for fluid overload 08/21: -Hold bumex Code(s): I50.9 - HEART FAILURE, UNSPECIFIED (6) PAD (peripheral artery disease) Current Visit: Yes Status: Acute Assessment & Plan: Continue home pentoxifylline 4 mg TID Code(s): I73.9 - PERIPHERAL VASCULAR DISEASE, UNSPECIFIED (7) HTN (hypertension) Current Visit: Yes Status: Acute Assessment & Plan: -stable, Continue benazepril 5 mg daily, Bumex 1 mg daily Code(s): I10 - ESSENTIAL (PRIMARY) HYPERTENSION (8) Hypothyroid Current Visit: Yes Status: Acute Assessment & Plan: Continue home levothyroxine 50 mcg daily I spent 35 minutes [id number] with the patient on the day of discharge performing discharge exam, discussing hospital stay and discharge instructions with patient and caregivers, preparation of discharge records, prescriptions & referral forms and addressing any questions/concerns the patient had as documented above. - Vitals & Intake/Output Vital Signs: Vital Signs Temperature 98.2 F 08/23/23 07:03 Pulse Rate 77 08/23/23 07:03 Respiratory Rate 20 08/23/23 07:03 Blood Pressure 136/61 08/23/23 07:03 O2 Sat by Pulse Oximetry 97 08/23/23 07:03 Intake & Output: Intake & Output 08/20/23 08/21/23 08/22/23 08/23/23 11:59 11:59 11:59 11:59 Intake Total 120 660 740 Balance 120 660 740 Weight 79.4 kg - Lab Result Diagrams: 08/23/23 04:30 08/23/23 04:30 Lab Results-Last 24 Hrs: Lab Results-Last 24 Hours 08/23/23 08/23/23 Range/Units 04:30 04:30 WBC 6.9 (4.0-10.5) x10^3/uL RBC 3.31 L (4.1-5.4) x10^6/uL Hgb 9.4 L (12.0-16.0) g/dL Hct 30.1 L (35-47) % MCV 90.9 (78-100) fL MCH 28.4 (26-32) pg MCHC 31.2 L (32-36) g/dL RDW 16.4 H (11.5-14.0) % Plt Count 214 (150-450) x10^3/uL MPV 9.6 (7.5-11.0) fL Gran % 88.7 H (36.0-66.0) % Immature Gran % (Auto) 1.0 H (0.00-0.4) % Nucleat RBC Rel Count 0.0 (0.00-0.1) % Eos # (Auto) 0 (0-0.5) x10^3/uL Immature Gran # (Auto) 0.07 H (0.00-0.03) x10^3u/L Absolute Lymphs (auto) 0.58 L (1.0-4.6) x10^3/uL Absolute Monos (auto) 0.11 (0.0-1.3) x10^3/uL Absolute Nucleated RBC 0.00 (0.00-0.01) x10^3u/L Lymphocytes % 8.4 L (24.0-44.0) % Monocytes % 1.6 (0.0-12.0) % Eosinophils % 0.0 (0.00-5.0) % Basophils % 0.3 (0.0-0.4) % Absolute Granulocytes 6.10 (1.4-6.9) x10^3/uL Basophils # 0.02 (0-0.4) x10^3/uL Sodium 136 (135-145) mmol/L Potassium 4.6 (3.5-5.1) mmol/L Chloride 102 (98-107) mmol/L Carbon Dioxide 29 (22-30) mmol/L Anion Gap 9.9 (5-15) MEQ/L BUN 36 H (7-17) mg/dL Creatinine 1.25 H (0.52-1.04) mg/dL Estimated GFR 41.5 ML/MIN Glucose 199 H (74-106) mg/dL Calcium 9.1 (8.4-10.2) mg/dL Total Bilirubin 0.20 (0.2-1.3) mg/dL AST 28 (14-36) U/L ALT 19 (0-35) U/L Alkaline Phosphatase 58 (38-126) U/L Serum Total Protein 6.1 L (6.3-8.2) g/dL Albumin 3.6 (3.5-5.0) g/dL Slides for Path Review YES Micro Results-Entire Visit: Microbiology 08/20/23 15:47 Blood Culture - Preliminary Blood 08/20/23 15:56 Blood Culture - Preliminary Blood Accuchecks Date 08/23/23 Date 08/22/23 Time 07:04 - Radiology Exams Ordered Rad Exams-Entire Visit: Radiology Procedures Category Date Time Status KUB Urgent Exams 08/22/23 09:06 Completed - Procedures and Test Procedures and Tests throughout Hospitalization: Therapy Orders & Screens 08/20/23 15:58 Respiratory Therapy Assessment DAILY Comment: 08/20/23 22:06 Oxygen Oxymask LPM 2 lpm Comment: Diagnosis: COPD EXACERBATION 08/20/23 23:03 Respiratory Therapy Assessment DAILY Comment: Diagnosis: COPD EXACERBATION Discharge Exam General Appearance: no apparent distress Neurologic Exam: alert, oriented x 3, cooperative Eye Exam: PERRL Ears, Nose, Throat Exam: normal ENT inspection Neck Exam: normal inspection Respiratory Exam: crackles/rales Cardiovascular Exam: regular rate/rhythm, normal heart sounds Gastrointestinal/Abdomen Exam: soft, normal bowel sounds Pelvic Exam: deferred Rectal Exam: deferred Back Exam: normal inspection Extremity Exam: normal inspection Skin Exam: normal color Final Diagnosis/Problem List - Final Discharge Diagnosis/Problem (1) Acute respiratory failure with hypoxia Current Visit: Yes Status: Resolved Code(s): J96.01 - ACUTE RESPIRATORY FAILURE WITH HYPOXIA (2) COPD exacerbation Current Visit: Yes Status: Chronic Code(s): J44.1 - CHRONIC OBSTRUCTIVE PULMONARY DISEASE W (ACUTE) EXACERBATION (3) Pneumonia Current Visit: Yes Status: Acute Code(s): J18.9 - PNEUMONIA, UNSPECIFIED ORGANISM (4) Diabetes mellitus Current Visit: Yes Status: Chronic Code(s): E11.9 - TYPE 2 DIABETES MELLITUS WITHOUT COMPLICATIONS (5) CHF (congestive heart failure) Current Visit: Yes Status: Chronic Code(s): I50.9 - HEART FAILURE, UNSPECIFIED (6) PAD (peripheral artery disease) Current Visit: Yes Status: Chronic Code(s): I73.9 - PERIPHERAL VASCULAR DISEASE, UNSPECIFIED (7) HTN (hypertension) Current Visit: Yes Status: Acute Code(s): I10 - ESSENTIAL (PRIMARY) HYPERTENSION (8) Hypothyroid Current Visit: Yes Status: Chronic Code(s): E03.9 - HYPOTHYROIDISM, UNSPECIFIED (9) Lung mass Current Visit: Yes Status: Chronic Code(s): R91.8 - OTHER NONSPECIFIC ABNORMAL FINDING OF LUNG FIELD (10) Thrush, oral Current Visit: Yes Status: Acute Code(s): B37.0 - CANDIDAL STOMATITIS (11) Constipation Current Visit: Yes Status: Acute Code(s): K59.00 - CONSTIPATION, UNSPECIFIED (12) Poor appetite Current Visit: Yes Status: Chronic Code(s): R63.0 - ANOREXIA - Discharge Disposition: Home, Self-Care Condition: Stable Prescriptions: New Prednisone 20 mg [Deltasone 20 mg] 20 mg PO BID 5 Days #10 tablet Levofloxacin [Levofloxacin 250MG Tablet] 250 mg PO DAILY 7 Days #7 tablet Megestrol Acetate [Megace Susp] 400 mg PO DAILY 14 Days #140 ml Nystatin 10 ml PO QID 7 Days #70 ml Continue Levothyroxine Sodium 50 Mcg [Synthroid 50 Mcg] 50 mcg PO DAILY Atorvastatin Calcium 20 mg PO HS PANTOPRAZOLE 40 mg Tablet [Protonix 40MG Tablet] 1 tab PO DAILY Pioglitazone HCl [Actos] 1 tab PO DAILY Bumetanide 1 mg [Bumex 1 mg] 1 mg PO DAILY Citalopram Hydrobromide [Citalopram HBr] 30 mg PO HS Trazodone HCl 50 mg [Desyrel 50 mg] 50 mg PO DAILY Albuterol Sulfate [Proair Hfa] 1 inh PO UD Benazepril HCl [Lotensin] 5 mg PO DAILY Pentoxifylline 400 mg PO TID Montelukast Sodium 10 mg [Singulair 10 MG] 10 mg PO DAILY Instructions: Exacerbation of COPD (DC) Additional Instructions: Hold bumex x 1 day. Call PCP for labs Saturday Follow up with: LORENZO GATES [Primary Care Provider] - 08/30/23 1:00 pm STANISLAW WILSON [ACTIVE STAFF] - 1 Week
[2023-08-23 12:17] VITALS: BP 178/77; PULSE 82; RESP 19; TEMP 98.4; O2SAT 96
== END 2023-08-23 13:40 | disposition home or self-care (01) ==
LOC: ED 15:27 → MED SURG 17:55
PROVIDERS: ADMIT Internal Medicine; ATTEND Internal Medicine
DX: J96.01 Acute respiratory failure with hypoxia (principal); J44.1 Chronic obstructive pulmonary disease with (acute) exacerbation; J18.9 Pneumonia, unspecified organism; E11.9 Type 2 diabetes mellitus without complications; I11.0 Hypertensive heart disease with heart failure; I50.9 Heart failure, unspecified; I73.9 Peripheral vascular disease, unspecified; E03.9 Hypothyroidism, unspecified; R91.8 Other nonspecific abnormal finding of lung field; B37.0 Candidal stomatitis; K59.00 Constipation, unspecified; R63.0 Anorexia; F03.90 Unspecified dementia, unspecified severity, without behavioral disturbance, psychotic disturbance, mood disturbance, and anxiety; Z79.899 Other long term (current) drug therapy; Z20.828 Contact with and (suspected) exposure to other viral communicable diseases
CPT/HCPCS: 0241U; 36000; 36415; 71045; 74018; 80048; 80053; 81001; 82947; 83605; 84484; 85025; 85027; 87040; 93005; 93041; 94640; 94760; 94762; 96374; 99285; Q3014; G0378; J0696; J1650; J1817; J1956; J2920; J2930; A9270-GY

== ENCOUNTER 2023-08-30 13:10 | Emergency (ER) | payer MEDICARE ==
[2023-08-30 13:18] VITALS: TEMP 98.3
--- NOTE | 2023-08-30 13:23 | ERPHSYRPT ---
- History of Present Illness Time Seen by Provider: 08/30/23 13:22 Source: patient, family Exam Limitations: no limitations Patient Subjective Stated Complaint: Pt states "I was released a couple of days ago from the hospital and I have been feeling bad ever since. I was trying to go to the office but I threw up before I got there." Triage Nursing Assessment: PT presented alert and oriented X 3, skin pwd. Pt ambulates with assistance. PT has general weakness. PT nauseated. Physician History: This is an 87-year-old white female patient who was recently admitted in the hospital 08/20/2023 and discharged on 08/23/2023. I reviewed the admission note and discharge note for that today. I also reviewed those records. Patient was admitted for pneumonia. She was discharged home on 08/23/2023. Since that time she has been very weak. She had a follow-up appointment scheduled today at her primary care physician's office. She vomited once so the patient came to the emergency department for evaluation. Here in the emergency department she had a systolic blood pressure in the 1 teens to 120s. However, she was in atrial fibrillation with RVR with a heart rate 138. I reviewed several old EKGs and the most recent, 08/20/2023 showed a heart rate of 75 bpm and a normal sinus rhythm. Patient has a history of hyperlipidemia, hypothyroidism, diabetes type 2, hypertension, gastroesophageal reflux disease, anxiety and dementia. Timing/Duration: day(s), worse Severity: mild (Last few days moderate) Associated Symptoms: vomiting (Vomited once prior to arrival), weakness, No shortness of breath, No chest pain Allergies/Adverse Reactions: codeine [Codeine] Allergy (Severe, Verified 08/20/23 15:56) Hives clarithromycin Allergy (Intermediate, Verified 08/20/23 15:56) Nausea doxycycline Allergy (Intermediate, Verified 08/20/23 15:56) Hives Home Medications: Atorvastatin Calcium 20 mg PO HS 02/22/13 [History] Levothyroxine Sodium 50 Mcg [Synthroid 50 Mcg] 50 mcg PO DAILY 02/22/13 [History] PANTOPRAZOLE 40 mg Tablet [Protonix 40MG Tablet] 1 tab PO DAILY 05/14/17 [History] Pioglitazone HCl [Actos] 1 tab PO DAILY 05/14/17 [History] Bumetanide 1 mg [Bumex 1 mg] 1 mg PO DAILY 03/01/18 [History] Citalopram Hydrobromide [Citalopram HBr] 30 mg PO HS 03/01/18 [History] Albuterol Sulfate [Proair Hfa] 1 inh PO UD 08/28/21 [History] Trazodone HCl 50 mg [Desyrel 50 mg] 50 mg PO DAILY 08/28/21 [History] Benazepril HCl [Lotensin] 5 mg PO DAILY 08/20/23 [History] Montelukast Sodium 10 mg [Singulair 10 MG] 10 mg PO DAILY 08/20/23 [History] Pentoxifylline 400 mg PO TID 08/20/23 [History] Hx Tetanus, Diphtheria Vaccination/Date Given: No Hx Influenza Vaccination/Date Given: No Hx Pneumococcal Vaccination/Date Given: No Immunizations Up to Date: No Travel Risk - International Travel Have you traveled outside of the country in past 3 weeks: No - Coronavirus Screening Are you exhibiting any of the following symptoms?: No Close contact with a COVID-19 positive Pt in past 14-21 Days: No - Vaccine Status Have you recieved a Covid-19 vaccination: Yes 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 - Vaccination Dates Dates if Unknown: unknown - Review of Systems Constitutional: Lethargy, Weakness Eyes: No Symptoms Ears, Nose, & Throat: No Symptoms Respiratory: No Symptoms Cardiac: Palpitations, No Chest Pain Abdominal/Gastrointestinal: No Symptoms Genitourinary Symptoms: No Symptoms Musculoskeletal: No Symptoms Skin: No Symptoms Neurological: Lethargy Psychological: No Symptoms Endocrine: No Symptoms Hematologic/Lymphatic: No Symptoms Immunological/Allergic: No Symptoms All Other Systems: Reviewed and Negative - Past Medical History Pertinent Past Medical History: Yes Neurological History: No Pertinent History ENT History: Cataracts Cardiac History: High Cholesterol, Hypertension Respiratory History: COPD Endocrine Medical History: Diabetes Type II, Hypothyroidism Musculoskeletal History: Arthritis, Osteoporosis GI Medical History: GERD, Ulcer, Other History: No Pertinent History Psycho-Social History: Anxiety, Depression, Panic Disorder Female Reproductive Disorders: No Pertinent History Other Medical History: bronchitis - Past Surgical History Past Surgical History: Yes Neuro Surgical History: No Pertinent History Cardiac: No Pertinent History Respiratory: No Pertinent History Gastrointestinal: No Pertinent History Genitourinary: No Pertinent History Musculoskeletal: No Pertinent History Female Surgical History: Tubal Ligation Other Surgical History: Bladder tie up, POLYPS REMOVED FROM COLON, ESOPHAGUS STRETCHING Significant Family History: no pertinent family hx - Social History Smoking Status: Former smoker How long have you smoked: 42 Exposure to second hand smoke: Yes Alcohol Use: None Drug Use: none Patient Lives Alone: No - Nursing Vital Signs Nursing Vital Signs: Initial Vital Signs Temperature 98.3 F 08/30/23 13:11 Pulse Rate 138 H 08/30/23 13:11 Respiratory Rate 22 08/30/23 13:11 Blood Pressure 149/68 08/30/23 13:11 O2 Sat by Pulse Oximetry 96 08/30/23 13:11 Pain Scale Pain Intensity 0 - Physical Exam General Appearance: lethargy (Arousable), thin, other Eye Exam: PERRL/EOMI, eyes nml inspection Ears, Nose, Throat Exam: normal ENT inspection Neck Exam: normal inspection, non-tender, supple, full range of motion Respiratory Exam: normal breath sounds, lungs clear, airway intact, No chest tenderness, No respiratory distress Cardiovascular Exam: tachycardia, irregular Gastrointestinal/Abdomen Exam: soft, normal bowel sounds, No tenderness Pelvic Exam: not done Rectal Exam: not done Back Exam: normal inspection, normal range of motion, No CVA tenderness, No vertebral tenderness Extremity Exam: normal inspection, normal range of motion, pelvis stable Neurologic Exam: cooperative, 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 as tested, other (Mildly lethargic but arousable) Skin Exam: normal color, warm, dry Lymphatic Exam: No adenopathy SpO2 Interpretation: normal SpO2: 96 O2 Delivery: Room Air - Course Nursing assessment & vital signs reviewed: Yes EKG Interpreted by Me: RATE (138), A-fib, NORMAL AXIS, NORMAL INTERVALS, NORMAL QRS, Other (No acute ischemia on today's twelve-lead EKG.) Ordered Tests: Active Orders 24 hr Category Date Time Status Watch Electrician STAT Care 08/30/23 13:27 Active EKG-ER Only STAT Care 08/30/23 13:27 Active IV Insertion STAT Care 08/30/23 13:27 Active Pulse Oximetry (ED) STAT Care 08/30/23 13:27 Active CHEST WITH CONTRAST [CT] Stat Exams 08/30/23 16:47 Taken HEAD WITHOUT CONTRAST [CT] Stat Exams 08/30/23 14:22 Completed BLOOD CULTURE Stat Lab 08/30/23 13:47 Received CBC W DIFF Stat Lab 08/30/23 13:15 Completed CMP Stat Lab 08/30/23 14:18 Completed CULTURE,URINE Stat Lab 08/30/23 15:07 Received D-DIMER QUANTITATIVE Stat Lab 08/30/23 13:15 Completed Lactic Acid Stat Lab 08/30/23 14:17 Completed MAGNESIUM Stat Lab 08/30/23 13:15 Completed MONO SCREEN Stat Lab 08/30/23 Completed NT PRO BNPII Stat Lab 08/30/23 13:15 Completed PROTIME WITH INR Stat Lab 08/30/23 13:15 Completed TROPONIN Q4H Lab 08/30/23 13:15 Completed TROPONIN Q4H Lab 08/30/23 17:28 Completed TROPONIN Q4H Lab 08/30/23 21:30 Ordered TSH [TSH, 3RD Generation] Stat Lab 08/30/23 13:15 Completed UA W/RFX UR CULTURE Stat Lab 08/30/23 15:07 Completed Medication Summary Generic Name Dose Route Start Last Admin Trade Name Freq PRN Reason Stop Dose Admin Diltiazem HCl 100 mls @ 5 mls/hr 08/30/23 13:32 08/30/23 13:32 Cardizem Drip 100 Mg/100 Ml D5w IV 09/29/23 13:31 5 mg/hr .Q20H PRN 5 mls/hr HEART RATE/ A-FIB Administration Protocol 5 MG/HR Sodium Chloride 250 mls @ 250 mls/hr 08/30/23 17:00 08/30/23 18:16 Sodium Chloride 0.9% 250 Ml IV 08/30/23 17:59 Infused .Q1H GENNY Infusion Discontinued Medications Generic Name Dose Route Start Last Admin Trade Name Freq PRN Reason Stop Dose Admin Diltiazem HCl 15 mg 08/30/23 13:27 08/30/23 13:33 Diltiazem Hcl Iv 5 Mg/Ml Vial IV 08/30/23 13:28 Not Given STAT ONE Enoxaparin Sodium 80 mg 08/30/23 16:37 08/30/23 17:04 Enoxaparin Sodium 80 Mg/0.8 Ml Syringe SQ 08/30/23 16:38 80 mg STAT ONE Administration Enoxaparin Sodium Confirm 08/30/23 16:56 Enoxaparin Sodium 80 Mg/0.8 Ml Syringe Administered 08/30/23 16:57 Dose 80 mg SQ .STK-MED ONE Furosemide 40 mg 08/30/23 14:19 08/30/23 14:22 Furosemide 40 Mg/4 Ml Vial IV 08/30/23 14:20 40 mg STAT ONE Administration Furosemide Confirm 08/30/23 14:21 Furosemide 40 Mg/4 Ml Vial Administered 08/30/23 14:22 Dose 40 mg .ROUTE .STK-MED ONE Diltiazem HCl Confirm 08/30/23 13:31 Cardizem Drip 100 Mg/100 Ml D5w Administered 08/30/23 13:32 Dose 100 mls @ ud IV .STK-MED ONE Lab/Rad Data: Laboratory Result Diagrams 08/30/23 13:15 08/30/23 14:18 Laboratory Results 08/30/23 08/30/23 08/30/23 Range/Units Unknown 17:28 15:07 WBC (4.0-10.5) x10^3/uL RBC (4.1-5.4) x10^6/uL Hgb (12.0-16.0) g/dL Hct (35-47) % MCV (78-100) fL MCH (26-32) pg MCHC (32-36) g/dL RDW (11.5-14.0) % Plt Count (150-450) x10^3/uL MPV (7.5-11.0) fL Gran % (36.0-66.0) % Immature Gran % (Auto) (0.00-0.4) % Nucleat RBC Rel Count (0.00-0.1) % Eos # (Auto) (0-0.5) x10^3/uL Immature Gran # (Auto) (0.00-0.03) x10^3u/L Absolute Lymphs (auto) (1.0-4.6) x10^3/uL Absolute Monos (auto) (0.0-1.3) x10^3/uL Absolute Nucleated RBC (0.00-0.01) x10^3u/L Lymphocytes % (24.0-44.0) % Monocytes % (0.0-12.0) % Eosinophils % (0.00-5.0) % Basophils % (0.0-0.4) % Absolute Granulocytes (1.4-6.9) x10^3/uL Basophils # (0-0.4) x10^3/uL PT (9.4-12.5) SECONDS INR (0.8-3.0) D-Dimer (0.0-0.50) mg/L Sodium (135-145) mmol/L Potassium (3.5-5.1) mmol/L Chloride (98-107) mmol/L Carbon Dioxide (22-30) mmol/L Anion Gap (5-15) MEQ/L BUN (7-17) mg/dL Creatinine (0.52-1.04) mg/dL Estimated GFR ML/MIN Glucose (74-106) mg/dL Lactic Acid (0.4-2.0) Calcium (8.4-10.2) mg/dL Magnesium (1.6-2.3) mg/dL Total Bilirubin (0.2-1.3) mg/dL AST (14-36) U/L ALT (0-35) U/L Alkaline Phosphatase (38-126) U/L Ammonia (9-30) umol/L Troponin I 0.014 (0.000-0.034) ng/mL NT-Pro-B Natriuret Pep (<300) pg/mL Serum Total Protein (6.3-8.2) g/dL Albumin (3.5-5.0) g/dL TSH 3rd Generation (0.47-4.68) mIU/L Urine Color Yellow (Yellow) Urine Appearance Clear (Clear) Urine pH 5.5 (4.6-8.0) Ur Specific [place] 1.010 (1.005-1.030) Urine Protein Negative (Negative) Urine Glucose (UA) Negative (Negative) mg/dL Urine Ketones Negative (Negative) Urine Blood Negative (Negative) Urine Nitrite Negative (Negative) Urine Bilirubin Negative (Negative) Urine Urobilinogen 0.2 (0.2) mg/dL Ur Leukocyte Esterase Negative (Negative) U Hyaline Cast (Auto) 3-5 A (0-2) /LPF Urine Microscopic RBC 0-2 (0-5) /HPF Urine Microscopic WBC 0-2 (0-5) /HPF Ur Epithelial Cells None Seen (None Seen) /HPF Urine Bacteria None Seen (None Seen) /HPF Urine Culture Reflexed NO (NO) Monoscreen NEGATIVE (NEGATIVE) Influenza Type A Ag (NEGATIVE) Influenza Type B Ag (NEGATIVE) RSV (PCR) (NEGATIVE) SARS-CoV-2 (PCR) (NEGATIVE) 08/30/23 08/30/23 08/30/23 Range/Units 14:50 14:47 14:18 WBC (4.0-10.5) x10^3/uL RBC (4.1-5.4) x10^6/uL Hgb (12.0-16.0) g/dL Hct (35-47) % MCV (78-100) fL MCH (26-32) pg MCHC (32-36) g/dL RDW (11.5-14.0) % Plt Count (150-450) x10^3/uL MPV (7.5-11.0) fL Gran % (36.0-66.0) % Immature Gran % (Auto) (0.00-0.4) % Nucleat RBC Rel Count (0.00-0.1) % Eos # (Auto) (0-0.5) x10^3/uL Immature Gran # (Auto) (0.00-0.03) x10^3u/L Absolute Lymphs (auto) (1.0-4.6) x10^3/uL Absolute Monos (auto) (0.0-1.3) x10^3/uL Absolute Nucleated RBC (0.00-0.01) x10^3u/L Lymphocytes % (24.0-44.0) % Monocytes % (0.0-12.0) % Eosinophils % (0.00-5.0) % Basophils % (0.0-0.4) % Absolute Granulocytes (1.4-6.9) x10^3/uL Basophils # (0-0.4) x10^3/uL PT (9.4-12.5) SECONDS INR (0.8-3.0) D-Dimer (0.0-0.50) mg/L Sodium 140 (135-145) mmol/L Potassium 4.0 (3.5-5.1) mmol/L Chloride 109 H (98-107) mmol/L Carbon Dioxide 23 (22-30) mmol/L Anion Gap 11.4 (5-15) MEQ/L BUN 26 H (7-17) mg/dL Creatinine 1.32 H (0.52-1.04) mg/dL Estimated GFR 38.8 ML/MIN Glucose 130 H (74-106) mg/dL Lactic Acid (0.4-2.0) Calcium 8.8 (8.4-10.2) mg/dL Magnesium (1.6-2.3) mg/dL Total Bilirubin 0.40 (0.2-1.3) mg/dL AST 19 (14-36) U/L ALT 20 (0-35) U/L Alkaline Phosphatase 53 (38-126) U/L Ammonia < 9 L (9-30) umol/L Troponin I (0.000-0.034) ng/mL NT-Pro-B Natriuret Pep (<300) pg/mL Serum Total Protein 5.9 L (6.3-8.2) g/dL Albumin 3.3 L (3.5-5.0) g/dL TSH 3rd Generation (0.47-4.68) mIU/L Urine Color (Yellow) Urine Appearance (Clear) Urine pH (4.6-8.0) Ur Specific [place] (1.005-1.030) Urine Protein (Negative) Urine Glucose (UA) (Negative) mg/dL Urine Ketones (Negative) Urine Blood (Negative) Urine Nitrite (Negative) Urine Bilirubin (Negative) Urine Urobilinogen (0.2) mg/dL Ur Leukocyte Esterase (Negative) U Hyaline Cast (Auto) (0-2) /LPF Urine Microscopic RBC (0-5) /HPF Urine Microscopic WBC (0-5) /HPF Ur Epithelial Cells (None Seen) /HPF Urine Bacteria (None Seen) /HPF Urine Culture Reflexed (NO) Monoscreen (NEGATIVE) Influenza Type A Ag NEGATIVE (NEGATIVE) Influenza Type B Ag NEGATIVE (NEGATIVE) RSV (PCR) NEGATIVE (NEGATIVE) SARS-CoV-2 (PCR) NEGATIVE (NEGATIVE) 08/30/23 08/30/23 08/30/23 Range/Units 14:17 13:15 13:15 WBC (4.0-10.5) x10^3/uL RBC (4.1-5.4) x10^6/uL Hgb (12.0-16.0) g/dL Hct (35-47) % MCV (78-100) fL MCH (26-32) pg MCHC (32-36) g/dL RDW (11.5-14.0) % Plt Count (150-450) x10^3/uL MPV (7.5-11.0) fL Gran % (36.0-66.0) % Immature Gran % (Auto) (0.00-0.4) % Nucleat RBC Rel Count (0.00-0.1) % Eos # (Auto) (0-0.5) x10^3/uL Immature Gran # (Auto) (0.00-0.03) x10^3u/L Absolute Lymphs (auto) (1.0-4.6) x10^3/uL Absolute Monos (auto) (0.0-1.3) x10^3/uL Absolute Nucleated RBC (0.00-0.01) x10^3u/L Lymphocytes % (24.0-44.0) % Monocytes % (0.0-12.0) % Eosinophils % (0.00-5.0) % Basophils % (0.0-0.4) % Absolute Granulocytes (1.4-6.9) x10^3/uL Basophils # (0-0.4) x10^3/uL PT (9.4-12.5) SECONDS INR (0.8-3.0) D-Dimer (0.0-0.50) mg/L Sodium (135-145) mmol/L Potassium (3.5-5.1) mmol/L Chloride (98-107) mmol/L Carbon Dioxide (22-30) mmol/L Anion Gap (5-15) MEQ/L BUN (7-17) mg/dL Creatinine (0.52-1.04) mg/dL Estimated GFR ML/MIN Glucose (74-106) mg/dL Lactic Acid 1.6 (0.4-2.0) Calcium (8.4-10.2) mg/dL Magnesium (1.6-2.3) mg/dL Total Bilirubin (0.2-1.3) mg/dL AST (14-36) U/L ALT (0-35) U/L Alkaline Phosphatase (38-126) U/L Ammonia (9-30) umol/L Troponin I (0.000-0.034) ng/mL NT-Pro-B Natriuret Pep 66554 (<300) pg/mL Serum Total Protein (6.3-8.2) g/dL Albumin (3.5-5.0) g/dL TSH 3rd Generation 4.260 (0.47-4.68) mIU/L Urine Color (Yellow) Urine Appearance (Clear) Urine pH (4.6-8.0) Ur Specific [place] (1.005-1.030) Urine Protein (Negative) Urine Glucose (UA) (Negative) mg/dL Urine Ketones (Negative) Urine Blood (Negative) Urine Nitrite (Negative) Urine Bilirubin (Negative) Urine Urobilinogen (0.2) mg/dL Ur Leukocyte Esterase (Negative) U Hyaline Cast (Auto) (0-2) /LPF Urine Microscopic RBC (0-5) /HPF Urine Microscopic WBC (0-5) /HPF Ur Epithelial Cells (None Seen) /HPF Urine Bacteria (None Seen) /HPF Urine Culture Reflexed (NO) Monoscreen (NEGATIVE) Influenza Type A Ag (NEGATIVE) Influenza Type B Ag (NEGATIVE) RSV (PCR) (NEGATIVE) SARS-CoV-2 (PCR) (NEGATIVE) 08/30/23 08/30/23 08/30/23 Range/Units 13:15 13:15 13:15 WBC (4.0-10.5) x10^3/uL RBC (4.1-5.4) x10^6/uL Hgb (12.0-16.0) g/dL Hct (35-47) % MCV (78-100) fL MCH (26-32) pg MCHC (32-36) g/dL RDW (11.5-14.0) % Plt Count (150-450) x10^3/uL MPV (7.5-11.0) fL Gran % (36.0-66.0) % Immature Gran % (Auto) (0.00-0.4) % Nucleat RBC Rel Count (0.00-0.1) % Eos # (Auto) (0-0.5) x10^3/uL Immature Gran # (Auto) (0.00-0.03) x10^3u/L Absolute Lymphs (auto) (1.0-4.6) x10^3/uL Absolute Monos (auto) (0.0-1.3) x10^3/uL Absolute Nucleated RBC (0.00-0.01) x10^3u/L Lymphocytes % (24.0-44.0) % Monocytes % (0.0-12.0) % Eosinophils % (0.00-5.0) % Basophils % (0.0-0.4) % Absolute Granulocytes (1.4-6.9) x10^3/uL Basophils # (0-0.4) x10^3/uL PT 10.8 (9.4-12.5) SECONDS INR 0.99 (0.8-3.0) D-Dimer 1.32 H* (0.0-0.50) mg/L Sodium (135-145) mmol/L Potassium (3.5-5.1) mmol/L Chloride (98-107) mmol/L Carbon Dioxide (22-30) mmol/L Anion Gap (5-15) MEQ/L BUN (7-17) mg/dL Creatinine (0.52-1.04) mg/dL Estimated GFR ML/MIN Glucose (74-106) mg/dL Lactic Acid (0.4-2.0) Calcium (8.4-10.2) mg/dL Magnesium 2.0 (1.6-2.3) mg/dL Total Bilirubin (0.2-1.3) mg/dL AST (14-36) U/L ALT (0-35) U/L Alkaline Phosphatase (38-126) U/L Ammonia (9-30) umol/L Troponin I 0.015 (0.000-0.034) ng/mL NT-Pro-B Natriuret Pep (<300) pg/mL Serum Total Protein (6.3-8.2) g/dL Albumin (3.5-5.0) g/dL TSH 3rd Generation (0.47-4.68) mIU/L Urine Color (Yellow) Urine Appearance (Clear) Urine pH (4.6-8.0) Ur Specific [place] (1.005-1.030) Urine Protein (Negative) Urine Glucose (UA) (Negative) mg/dL Urine Ketones (Negative) Urine Blood (Negative) Urine Nitrite (Negative) Urine Bilirubin (Negative) Urine Urobilinogen (0.2) mg/dL Ur Leukocyte Esterase (Negative) U Hyaline Cast (Auto) (0-2) /LPF Urine Microscopic RBC (0-5) /HPF Urine Microscopic WBC (0-5) /HPF Ur Epithelial Cells (None Seen) /HPF Urine Bacteria (None Seen) /HPF Urine Culture Reflexed (NO) Monoscreen (NEGATIVE) Influenza Type A Ag (NEGATIVE) Influenza Type B Ag (NEGATIVE) RSV (PCR) (NEGATIVE) SARS-CoV-2 (PCR) (NEGATIVE) 08/30/23 Range/Units 13:15 WBC 13.5 H (4.0-10.5) x10^3/uL RBC 4.43 (4.1-5.4) x10^6/uL Hgb 12.3 (12.0-16.0) g/dL Hct 39.5 (35-47) % MCV 89.2 (78-100) fL MCH 27.8 (26-32) pg MCHC 31.1 L (32-36) g/dL RDW 16.4 H (11.5-14.0) % Plt Count 312 (150-450) x10^3/uL MPV 9.0 (7.5-11.0) fL Gran % 71.0 H (36.0-66.0) % Immature Gran % (Auto) 2.1 H (0.00-0.4) % Nucleat RBC Rel Count 0.0 (0.00-0.1) % Eos # (Auto) 0.07 (0-0.5) x10^3/uL Immature Gran # (Auto) 0.29 H (0.00-0.03) x10^3u/L Absolute Lymphs (auto) 2.65 (1.0-4.6) x10^3/uL Absolute Monos (auto) 0.90 (0.0-1.3) x10^3/uL Absolute Nucleated RBC 0.00 (0.00-0.01) x10^3u/L Lymphocytes % 19.6 L (24.0-44.0) % Monocytes % 6.6 (0.0-12.0) % Eosinophils % 0.5 (0.00-5.0) % Basophils % 0.2 (0.0-0.4) % Absolute Granulocytes 9.60 H (1.4-6.9) x10^3/uL Basophils # 0.03 (0-0.4) x10^3/uL PT (9.4-12.5) SECONDS INR (0.8-3.0) D-Dimer (0.0-0.50) mg/L Sodium (135-145) mmol/L Potassium (3.5-5.1) mmol/L Chloride (98-107) mmol/L Carbon Dioxide (22-30) mmol/L Anion Gap (5-15) MEQ/L BUN (7-17) mg/dL Creatinine (0.52-1.04) mg/dL Estimated GFR ML/MIN Glucose (74-106) mg/dL Lactic Acid (0.4-2.0) Calcium (8.4-10.2) mg/dL Magnesium (1.6-2.3) mg/dL Total Bilirubin (0.2-1.3) mg/dL AST (14-36) U/L ALT (0-35) U/L Alkaline Phosphatase (38-126) U/L Ammonia (9-30) umol/L Troponin I (0.000-0.034) ng/mL NT-Pro-B Natriuret Pep (<300) pg/mL Serum Total Protein (6.3-8.2) g/dL Albumin (3.5-5.0) g/dL TSH 3rd Generation (0.47-4.68) mIU/L Urine Color (Yellow) Urine Appearance (Clear) Urine pH (4.6-8.0) Ur Specific [place] (1.005-1.030) Urine Protein (Negative) Urine Glucose (UA) (Negative) mg/dL Urine Ketones (Negative) Urine Blood (Negative) Urine Nitrite (Negative) Urine Bilirubin (Negative) Urine Urobilinogen (0.2) mg/dL Ur Leukocyte Esterase (Negative) U Hyaline Cast (Auto) (0-2) /LPF Urine Microscopic RBC (0-5) /HPF Urine Microscopic WBC (0-5) /HPF Ur Epithelial Cells (None Seen) /HPF Urine Bacteria (None Seen) /HPF Urine Culture Reflexed (NO) Monoscreen (NEGATIVE) Influenza Type A Ag (NEGATIVE) Influenza Type B Ag (NEGATIVE) RSV (PCR) (NEGATIVE) SARS-CoV-2 (PCR) (NEGATIVE) - Progress Progress: improved, re-examined Progress Note: 08/30/23 13:43 This patient's medical issue is 1 of moderate to high complexity. The level complexity in the workup performed is based on review of the patient's past medical history, review of the patient's old inpatient records from recent admission, review of the patient's medication list, review of patient drug allergy list, history present illness and physical findings on examination. This patient workup includes placement of intravenous line, twelve-lead EKG, troponin level, D-dimer level, TSH level, magnesium level, CBC, CMP and urinalysis. 08/30/23 18:18 I interpreted the patient's laboratory data results. The patient had an elevated D-dimer and therefore I ordered a CT of the chest with contrast. I gently hydrated her prior to the testing. I took responsibility for the patient's renal function. I spoke with Dr. Rhoades, our telehospitalist and he agreed with performing the CT of the chest with contrast to evaluate for pulmonary embolus and he stated he would admit this patient. However, he called back and declined admission. He is concerned that over the weekend we do not have cardiology or the ability to do echocardiogram or cardioversion if the patient requires this. Patient prefers to go to [facility]. We have put a call into that facility. The radiologist interpreted the CT of the chest with contrast results. The i mpression states negative pulmonary embolus. 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 There is no new/acute findings. 08/30/23 19:24 I spoke with Sharmin at the [facility] transfer center out of [facility]. I reviewed the the patient history, I reviewed the chief complaint, I reviewed the laboratory data results. She auto accepted this patient in transfer. The accepting physician is Dr. Shea the emergency room physician on at this time. Counseled pt/family regarding: lab results, diagnosis, rad results Medical Desision Making - Independent Historian Additional History obtained from: Family - Diagnostic Testing Diagnostic test were ordered, analyzed, and reviewed by me: Yes Radiological Interpretation: Reviewed by me, Teleradiologist Report - Risk of complications The pt has a high risk of morbidity or mortality based on: Decision regarding hospitilization or escalation of hosp level of care - Departure Departure Disposition: Transfer Clinical Impression: URI (upper respiratory infection), Atrial fibrillation with RVR, Mass of left lung Condition: Fair Critical Care Time: Yes Critical Care Time(excluding separately billable procedures): Critical 30-74 mins (50 minutes) Referrals: LORENZO GATES [Primary Care Provider] - Follow up/PCP as directed
[2023-08-30] MEDS ORDERED: CARDIZEM DRIP 100 MG/100 ML D5W 100 ML IV ONE (13:31)
[2023-08-30] MEDS: CARDIZEM DRIP 100 MG/100 ML D5W 100 ML IV PRN (13:32)
[2023-08-30] MEDS: Cardizem IV 50 MG/10 ML IV ONE (13:33)
[2023-08-30 13:38] LABS: BASOPHIL % 0.2 % (0.0-0.4); Basophil (Absolute #) 0.03 x10^3/uL (0-0.4); Eosinophil % 0.5 % (0.00-5.0); Eosinophil (Absolute #) 0.07 x10^3/uL (0-0.5); Hematocrit 39.5 % (35-47); Hemoglobin 12.3 g/dL (12.0-16.0); IMMATURE GRAN # 0.29 x10^3u/L (0.00-0.03); IMMATURE GRAN % 2.1 % (0.00-0.4); Lymphocyte (Absolute #) 2.65 x10^3/uL (1.0-4.6); Lymphocytes % 19.6 % (24.0-44.0); Mean Cell Volume 89.2 fL (78-100); Mean Corpuscular Hemoglobin 27.8 pg (26-32); Mean Corpuscular Hgb Concent. 31.1 g/dL (32-36); Monocytes % 6.6 % (0.0-12.0); Platelet Count 312 x10^3/uL (150-450); Red Blood Count 4.43 x10^6/uL (4.1-5.4); Red Cell Distribution Width 16.4 % (11.5-14.0); White Blood Count 13.5 x10^3/uL (4.0-10.5)
[2023-08-30 13:59] LABS: INR 0.99 (0.8-3.0); PROTIME 10.8 SECONDS (9.4-12.5)
[2023-08-30 14:02] LABS: D-DIMER QUANTITATIVE 1.32 mg/L (0.0-0.50)
[2023-08-30] MEDS ORDERED: Lasix 40 MG/4 ML ONE (14:21)
[2023-08-30] MEDS: Lasix 40 MG/4 ML IV ONE (14:22)
[2023-08-30 14:41] LABS: ALBUMIN 3.3 g/dL (3.5-5.0); ANION GAP 11.4 MEQ/L (5-15); BILIRUBIN,TOTAL 0.4 mg/dL (0.2-1.3); Calcium 8.8 mg/dL (8.4-10.2); Creatinine 1 1.32 mg/dL (0.52-1.04); EST GLOMERULAR FILTRATION RATE 38.8 ML/MIN; Total Protein 5.9 g/dL (6.3-8.2)
--- NOTE | 2023-08-30 15:15 | XRAY ---
Indication: Altered mental status. Multiple contiguous axial images obtained through the head without contrast. Comparison: May 31, 2016 Again age-appropriate global atrophy with now minimal periventricular degenerative micro-ischemia bilaterally. No acute intracranial hemorrhage, abnormal extra-axial fluid collection, or mass effect. Fourth ventricle is midline without hydrocephalus. Nolen-white matter differentiation preserved. Bony calvarium intact. Visualized paranasal sinuses and mastoid air cells are clear. Impression: Nonacute senile brain.
[2023-08-30 15:25] LABS: Appearance Clear (Clear); Bacteria None Seen /HPF (None Seen); Bilirubin Negative (Negative); Blood Negative (Negative); Epithelial Cells None Seen /HPF (None Seen); Glucose, Urine Negative (Negative); Ketones Negative (Negative); Leukocyte Esterase Negative (Negative); Nitrite Negative (Negative); Ph 5.5 (4.6-8.0); Protein,Urine Dip Negative (Negative); RBC 0-2 /HPF (0-5); Urobilinogen 0.2 mg/dL (0.2); WBC 0-2 /HPF (0-5)
[2023-08-30 15:26] LABS: ADD URINE CULTURE? NO (NO)
[2023-08-30 15:40] LABS: INFLUENZA A NEGATIVE (NEGATIVE); INFLUENZA B NEGATIVE (NEGATIVE); RESPIRATORY SYNCTIAL VIRUS NEGATIVE (NEGATIVE); SARS-CoV-2 Xpert Express NEGATIVE (NEGATIVE)
--- NOTE | 2023-08-30 16:01 | ERPHSYRPT ---
- History of Present Illness Time Seen by Provider: 08/30/23 13:22 Patient Subjective Stated Complaint: Pt states "I was released a couple of days ago from the hospital and I have been feeling bad ever since. I was trying to go to the office but I threw up before I got there." Triage Nursing Assessment: PT presented alert and oriented X 3, skin pwd. Pt ambulates with assistance. PT has general weakness. PT nauseated. Allergies/Adverse Reactions: codeine [Codeine] Allergy (Severe, Verified 08/20/23 15:56) Hives clarithromycin Allergy (Intermediate, Verified 08/20/23 15:56) Nausea doxycycline Allergy (Intermediate, Verified 08/20/23 15:56) Hives Home Medications: Atorvastatin Calcium 20 mg PO HS 02/22/13 [History] Levothyroxine Sodium 50 Mcg [Synthroid 50 Mcg] 50 mcg PO DAILY 02/22/13 [History] PANTOPRAZOLE 40 mg Tablet [Protonix 40MG Tablet] 1 tab PO DAILY 05/14/17 [History] Pioglitazone HCl [Actos] 1 tab PO DAILY 05/14/17 [History] Bumetanide 1 mg [Bumex 1 mg] 1 mg PO DAILY 03/01/18 [History] Citalopram Hydrobromide [Citalopram HBr] 30 mg PO HS 03/01/18 [History] Albuterol Sulfate [Proair Hfa] 1 inh PO UD 08/28/21 [History] Trazodone HCl 50 mg [Desyrel 50 mg] 50 mg PO DAILY 08/28/21 [History] Benazepril HCl [Lotensin] 5 mg PO DAILY 08/20/23 [History] Montelukast Sodium 10 mg [Singulair 10 MG] 10 mg PO DAILY 08/20/23 [History] Pentoxifylline 400 mg PO TID 08/20/23 [History] Hx Tetanus, Diphtheria Vaccination/Date Given: No Hx Influenza Vaccination/Date Given: No Hx Pneumococcal Vaccination/Date Given: No Immunizations Up to Date: No Travel Risk - International Travel Have you traveled outside of the country in past 3 weeks: No - Coronavirus Screening Are you exhibiting any of the following symptoms?: No Close contact with a COVID-19 positive Pt in past 14-21 Days: No - Vaccine Status Have you recieved a Covid-19 vaccination: Yes 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 - Vaccination Dates Dates if Unknown: unknown - Review of Systems Constitutional: No Fever, No Chills Eyes: No Symptoms, Discharge, Eye Pain, Eye Redness, Other - Past Medical History Pertinent Past Medical History: Yes Neurological History: No Pertinent History ENT History: Cataracts Cardiac History: High Cholesterol, Hypertension Respiratory History: COPD Endocrine Medical History: Diabetes Type II, Hypothyroidism Musculoskeletal History: Arthritis, Osteoporosis GI Medical History: GERD, Ulcer, Other History: No Pertinent History Psycho-Social History: Anxiety, Depression, Panic Disorder Female Reproductive Disorders: No Pertinent History Other Medical History: bronchitis - Past Surgical History Past Surgical History: Yes Neuro Surgical History: No Pertinent History Cardiac: No Pertinent History Respiratory: No Pertinent History Gastrointestinal: No Pertinent History Genitourinary: No Pertinent History Musculoskeletal: No Pertinent History Female Surgical History: Tubal Ligation Other Surgical History: Bladder tie up, POLYPS REMOVED FROM COLON, ESOPHAGUS STRETCHING Significant Family History: no pertinent family hx - Social History Smoking Status: Former smoker How long have you smoked: 42 Exposure to second hand smoke: Yes Alcohol Use: None Drug Use: none Patient Lives Alone: No - Nursing Vital Signs Nursing Vital Signs: Initial Vital Signs Temperature 98.3 F 08/30/23 13:11 Pulse Rate 138 H 08/30/23 13:11 Respiratory Rate 22 08/30/23 13:11 Blood Pressure 149/68 08/30/23 13:11 O2 Sat by Pulse Oximetry 96 08/30/23 13:11 Pain Scale Pain Intensity 0 - Physical Exam General Appearance: other SpO2: 95 Ordered Tests: Active Orders 24 hr Category Date Time Status Skip [employer]er Blasting STAT Care 08/30/23 13:27 Active EKG-ER Only STAT Care 08/30/23 13:27 Active IV Insertion STAT Care 08/30/23 13:27 Active Pulse Oximetry (ED) STAT Care 08/30/23 13:27 Active HEAD WITHOUT CONTRAST [CT] Stat Exams 08/30/23 14:22 Completed BLOOD CULTURE Stat Lab 08/30/23 13:47 Received CBC W DIFF Stat Lab 08/30/23 13:15 Completed CMP Stat Lab 08/30/23 14:18 Completed CULTURE,URINE Stat Lab 08/30/23 15:07 Received D-DIMER QUANTITATIVE Stat Lab 08/30/23 13:15 Completed Lactic Acid Stat Lab 08/30/23 14:17 Completed MAGNESIUM Stat Lab 08/30/23 13:15 Completed MONO SCREEN Stat Lab 08/30/23 Completed NT PRO BNPII Stat Lab 08/30/23 13:15 Completed PROTIME WITH INR Stat Lab 08/30/23 13:15 Completed TROPONIN Q4H Lab 08/30/23 13:15 Completed TROPONIN Q4H Lab 08/30/23 17:30 Ordered TROPONIN Q4H Lab 08/30/23 21:30 Ordered TSH [TSH, 3RD Generation] Stat Lab 08/30/23 13:15 Completed UA W/RFX UR CULTURE Stat Lab 08/30/23 15:07 Completed Medication Summary Generic Name Dose Route Start Last Admin Trade Name Freq PRN Reason Stop Dose Admin Diltiazem HCl 100 mls @ 5 mls/hr 08/30/23 13:32 08/30/23 13:32 Cardizem Drip 100 Mg/100 Ml D5w IV 09/29/23 13:31 5 mg/hr .Q20H PRN 5 mls/hr HEART RATE/ A-FIB Administration Protocol 5 MG/HR Discontinued Medications Generic Name Dose Route Start Last Admin Trade Name Freq PRN Reason Stop Dose Admin Diltiazem HCl 15 mg 08/30/23 13:27 08/30/23 13:33 Diltiazem Hcl Iv 5 Mg/Ml Vial IV 08/30/23 13:28 Not Given STAT ONE Furosemide 40 mg 08/30/23 14:19 08/30/23 14:22 Furosemide 40 Mg/4 Ml Vial IV 08/30/23 14:20 40 mg STAT ONE Administration Furosemide Confirm 08/30/23 14:21 Furosemide 40 Mg/4 Ml Vial Administered 08/30/23 14:22 Dose 40 mg .ROUTE .STK-MED ONE Diltiazem HCl Confirm 08/30/23 13:31 Cardizem Drip 100 Mg/100 Ml D5w Administered 08/30/23 13:32 Dose 100 mls @ ud IV .STK-MED ONE Lab/Rad Data: Laboratory Result Diagrams 08/30/23 13:15 08/30/23 14:18 Laboratory Results 08/30/23 08/30/23 08/30/23 Range/Units Unknown 15:07 14:50 WBC (4.0-10.5) x10^3/uL RBC (4.1-5.4) x10^6/uL Hgb (12.0-16.0) g/dL Hct (35-47) % MCV (78-100) fL MCH (26-32) pg MCHC (32-36) g/dL RDW (11.5-14.0) % Plt Count (150-450) x10^3/uL MPV (7.5-11.0) fL Gran % (36.0-66.0) % Immature Gran % (Auto) (0.00-0.4) % Nucleat RBC Rel Count (0.00-0.1) % Eos # (Auto) (0-0.5) x10^3/uL Immature Gran # (Auto) (0.00-0.03) x10^3u/L Absolute Lymphs (auto) (1.0-4.6) x10^3/uL Absolute Monos (auto) (0.0-1.3) x10^3/uL Absolute Nucleated RBC (0.00-0.01) x10^3u/L Lymphocytes % (24.0-44.0) % Monocytes % (0.0-12.0) % Eosinophils % (0.00-5.0) % Basophils % (0.0-0.4) % Absolute Granulocytes (1.4-6.9) x10^3/uL Basophils # (0-0.4) x10^3/uL PT (9.4-12.5) SECONDS INR (0.8-3.0) D-Dimer (0.0-0.50) mg/L Sodium (135-145) mmol/L Potassium (3.5-5.1) mmol/L Chloride (98-107) mmol/L Carbon Dioxide (22-30) mmol/L Anion Gap (5-15) MEQ/L BUN (7-17) mg/dL Creatinine (0.52-1.04) mg/dL Estimated GFR ML/MIN Glucose (74-106) mg/dL Lactic Acid (0.4-2.0) Calcium (8.4-10.2) mg/dL Magnesium (1.6-2.3) mg/dL Total Bilirubin (0.2-1.3) mg/dL AST (14-36) U/L ALT (0-35) U/L Alkaline Phosphatase (38-126) U/L Ammonia (9-30) umol/L Troponin I (0.000-0.034) ng/mL NT-Pro-B Natriuret Pep (<300) pg/mL Serum Total Protein (6.3-8.2) g/dL Albumin (3.5-5.0) g/dL TSH 3rd Generation (0.47-4.68) mIU/L Urine Color Yellow (Yellow) Urine Appearance Clear (Clear) Urine pH 5.5 (4.6-8.0) Ur Specific [place] 1.010 (1.005-1.030) Urine Protein Negative (Negative) Urine Glucose (UA) Negative (Negative) mg/dL Urine Ketones Negative (Negative) Urine Blood Negative (Negative) Urine Nitrite Negative (Negative) Urine Bilirubin Negative (Negative) Urine Urobilinogen 0.2 (0.2) mg/dL Ur Leukocyte Esterase Negative (Negative) U Hyaline Cast (Auto) 3-5 A (0-2) /LPF Urine Microscopic RBC 0-2 (0-5) /HPF Urine Microscopic WBC 0-2 (0-5) /HPF Ur Epithelial Cells None Seen (None Seen) /HPF Urine Bacteria None Seen (None Seen) /HPF Urine Culture Reflexed NO (NO) Monoscreen NEGATIVE (NEGATIVE) Influenza Type A Ag NEGATIVE (NEGATIVE) Influenza Type B Ag NEGATIVE (NEGATIVE) RSV (PCR) NEGATIVE (NEGATIVE) SARS-CoV-2 (PCR) NEGATIVE (NEGATIVE) 08/30/23 08/30/23 08/30/23 Range/Units 14:47 14:18 14:17 WBC (4.0-10.5) x10^3/uL RBC (4.1-5.4) x10^6/uL Hgb (12.0-16.0) g/dL Hct (35-47) % MCV (78-100) fL MCH (26-32) pg MCHC (32-36) g/dL RDW (11.5-14.0) % Plt Count (150-450) x10^3/uL MPV (7.5-11.0) fL Gran % (36.0-66.0) % Immature Gran % (Auto) (0.00-0.4) % Nucleat RBC Rel Count (0.00-0.1) % Eos # (Auto) (0-0.5) x10^3/uL Immature Gran # (Auto) (0.00-0.03) x10^3u/L Absolute Lymphs (auto) (1.0-4.6) x10^3/uL Absolute Monos (auto) (0.0-1.3) x10^3/uL Absolute Nucleated RBC (0.00-0.01) x10^3u/L Lymphocytes % (24.0-44.0) % Monocytes % (0.0-12.0) % Eosinophils % (0.00-5.0) % Basophils % (0.0-0.4) % Absolute Granulocytes (1.4-6.9) x10^3/uL Basophils # (0-0.4) x10^3/uL PT (9.4-12.5) SECONDS INR (0.8-3.0) D-Dimer (0.0-0.50) mg/L Sodium 140 (135-145) mmol/L Potassium 4.0 (3.5-5.1) mmol/L Chloride 109 H (98-107) mmol/L Carbon Dioxide 23 (22-30) mmol/L Anion Gap 11.4 (5-15) MEQ/L BUN 26 H (7-17) mg/dL Creatinine 1.32 H (0.52-1.04) mg/dL Estimated GFR 38.8 ML/MIN Glucose 130 H (74-106) mg/dL Lactic Acid 1.6 (0.4-2.0) Calcium 8.8 (8.4-10.2) mg/dL Magnesium (1.6-2.3) mg/dL Total Bilirubin 0.40 (0.2-1.3) mg/dL AST 19 (14-36) U/L ALT 20 (0-35) U/L Alkaline Phosphatase 53 (38-126) U/L Ammonia < 9 L (9-30) umol/L Troponin I (0.000-0.034) ng/mL NT-Pro-B Natriuret Pep (<300) pg/mL Serum Total Protein 5.9 L (6.3-8.2) g/dL Albumin 3.3 L (3.5-5.0) g/dL TSH 3rd Generation (0.47-4.68) mIU/L Urine Color (Yellow) Urine Appearance (Clear) Urine pH (4.6-8.0) Ur Specific [place] (1.005-1.030) Urine Protein (Negative) Urine Glucose (UA) (Negative) mg/dL Urine Ketones (Negative) Urine Blood (Negative) Urine Nitrite (Negative) Urine Bilirubin (Negative) Urine Urobilinogen (0.2) mg/dL Ur Leukocyte Esterase (Negative) U Hyaline Cast (Auto) (0-2) /LPF Urine Microscopic RBC (0-5) /HPF Urine Microscopic WBC (0-5) /HPF Ur Epithelial Cells (None Seen) /HPF Urine Bacteria (None Seen) /HPF Urine Culture Reflexed (NO) Monoscreen (NEGATIVE) Influenza Type A Ag (NEGATIVE) Influenza Type B Ag (NEGATIVE) RSV (PCR) (NEGATIVE) SARS-CoV-2 (PCR) (NEGATIVE) 08/30/23 08/30/23 08/30/23 Range/Units 13:15 13:15 13:15 WBC (4.0-10.5) x10^3/uL RBC (4.1-5.4) x10^6/uL Hgb (12.0-16.0) g/dL Hct (35-47) % MCV (78-100) fL MCH (26-32) pg MCHC (32-36) g/dL RDW (11.5-14.0) % Plt Count (150-450) x10^3/uL MPV (7.5-11.0) fL Gran % (36.0-66.0) % Immature Gran % (Auto) (0.00-0.4) % Nucleat RBC Rel Count (0.00-0.1) % Eos # (Auto) (0-0.5) x10^3/uL Immature Gran # (Auto) (0.00-0.03) x10^3u/L Absolute Lymphs (auto) (1.0-4.6) x10^3/uL Absolute Monos (auto) (0.0-1.3) x10^3/uL Absolute Nucleated RBC (0.00-0.01) x10^3u/L Lymphocytes % (24.0-44.0) % Monocytes % (0.0-12.0) % Eosinophils % (0.00-5.0) % Basophils % (0.0-0.4) % Absolute Granulocytes (1.4-6.9) x10^3/uL Basophils # (0-0.4) x10^3/uL PT (9.4-12.5) SECONDS INR (0.8-3.0) D-Dimer (0.0-0.50) mg/L Sodium (135-145) mmol/L Potassium (3.5-5.1) mmol/L Chloride (98-107) mmol/L Carbon Dioxide (22-30) mmol/L Anion Gap (5-15) MEQ/L BUN (7-17) mg/dL Creatinine (0.52-1.04) mg/dL Estimated GFR ML/MIN Glucose (74-106) mg/dL Lactic Acid (0.4-2.0) Calcium (8.4-10.2) mg/dL Magnesium (1.6-2.3) mg/dL Total Bilirubin (0.2-1.3) mg/dL AST (14-36) U/L ALT (0-35) U/L Alkaline Phosphatase (38-126) U/L Ammonia (9-30) umol/L Troponin I 0.015 (0.000-0.034) ng/mL NT-Pro-B Natriuret Pep 22042 (<300) pg/mL Serum Total Protein (6.3-8.2) g/dL Albumin (3.5-5.0) g/dL TSH 3rd Generation 4.260 (0.47-4.68) mIU/L Urine Color (Yellow) Urine Appearance (Clear) Urine pH (4.6-8.0) Ur Specific [place] (1.005-1.030) Urine Protein (Negative) Urine Glucose (UA) (Negative) mg/dL Urine Ketones (Negative) Urine Blood (Negative) Urine Nitrite (Negative) Urine Bilirubin (Negative) Urine Urobilinogen (0.2) mg/dL Ur Leukocyte Esterase (Negative) U Hyaline Cast (Auto) (0-2) /LPF Urine Microscopic RBC (0-5) /HPF Urine Microscopic WBC (0-5) /HPF Ur Epithelial Cells (None Seen) /HPF Urine Bacteria (None Seen) /HPF Urine Culture Reflexed (NO) Monoscreen (NEGATIVE) Influenza Type A Ag (NEGATIVE) Influenza Type B Ag (NEGATIVE) RSV (PCR) (NEGATIVE) SARS-CoV-2 (PCR) (NEGATIVE) 08/30/23 08/30/23 08/30/23 Range/Units 13:15 13:15 13:15 WBC 13.5 H (4.0-10.5) x10^3/uL RBC 4.43 (4.1-5.4) x10^6/uL Hgb 12.3 (12.0-16.0) g/dL Hct 39.5 (35-47) % MCV 89.2 (78-100) fL MCH 27.8 (26-32) pg MCHC 31.1 L (32-36) g/dL RDW 16.4 H (11.5-14.0) % Plt Count 312 (150-450) x10^3/uL MPV 9.0 (7.5-11.0) fL Gran % 71.0 H (36.0-66.0) % Immature Gran % (Auto) 2.1 H (0.00-0.4) % Nucleat RBC Rel Count 0.0 (0.00-0.1) % Eos # (Auto) 0.07 (0-0.5) x10^3/uL Immature Gran # (Auto) 0.29 H (0.00-0.03) x10^3u/L Absolute Lymphs (auto) 2.65 (1.0-4.6) x10^3/uL Absolute Monos (auto) 0.90 (0.0-1.3) x10^3/uL Absolute Nucleated RBC 0.00 (0.00-0.01) x10^3u/L Lymphocytes % 19.6 L (24.0-44.0) % Monocytes % 6.6 (0.0-12.0) % Eosinophils % 0.5 (0.00-5.0) % Basophils % 0.2 (0.0-0.4) % Absolute Granulocytes 9.60 H (1.4-6.9) x10^3/uL Basophils # 0.03 (0-0.4) x10^3/uL PT 10.8 (9.4-12.5) SECONDS INR 0.99 (0.8-3.0) D-Dimer 1.32 H* (0.0-0.50) mg/L Sodium (135-145) mmol/L Potassium (3.5-5.1) mmol/L Chloride (98-107) mmol/L Carbon Dioxide (22-30) mmol/L Anion Gap (5-15) MEQ/L BUN (7-17) mg/dL Creatinine (0.52-1.04) mg/dL Estimated GFR ML/MIN Glucose (74-106) mg/dL Lactic Acid (0.4-2.0) Calcium (8.4-10.2) mg/dL Magnesium 2.0 (1.6-2.3) mg/dL Total Bilirubin (0.2-1.3) mg/dL AST (14-36) U/L ALT (0-35) U/L Alkaline Phosphatase (38-126) U/L Ammonia (9-30) umol/L Troponin I (0.000-0.034) ng/mL NT-Pro-B Natriuret Pep (<300) pg/mL Serum Total Protein (6.3-8.2) g/dL Albumin (3.5-5.0) g/dL TSH 3rd Generation (0.47-4.68) mIU/L Urine Color (Yellow) Urine Appearance (Clear) Urine pH (4.6-8.0) Ur Specific [place] (1.005-1.030) Urine Protein (Negative) Urine Glucose (UA) (Negative) mg/dL Urine Ketones (Negative) Urine Blood (Negative) Urine Nitrite (Negative) Urine Bilirubin (Negative) Urine Urobilinogen (0.2) mg/dL Ur Leukocyte Esterase (Negative) U Hyaline Cast (Auto) (0-2) /LPF Urine Microscopic RBC (0-5) /HPF Urine Microscopic WBC (0-5) /HPF Ur Epithelial Cells (None Seen) /HPF Urine Bacteria (None Seen) /HPF Urine Culture Reflexed (NO) Monoscreen (NEGATIVE) Influenza Type A Ag (NEGATIVE) Influenza Type B Ag (NEGATIVE) RSV (PCR) (NEGATIVE) SARS-CoV-2 (PCR) (NEGATIVE) Medical Desision Making - Independent Historian Additional History obtained from: PCP - Departure Clinical Impression: URI (upper respiratory infection) Referrals: LORENZO GATES [Primary Care Provider] - Follow up/PCP as directed
[2023-08-30] MEDS ORDERED: ENOXAPARIN SODIUM SQ ONE (16:56)
[2023-08-30] MEDS ORDERED: Sodium Chloride 0.9% 250 ML 250 ML IV ONE (16:57)
[2023-08-30] MEDS: Sodium Chloride 0.9% 250 ML 250 ML IV SCH (17:02)
[2023-08-30] MEDS: ENOXAPARIN SODIUM SQ ONE (17:04)
[2023-08-30 18:21] VITALS: O2SAT 96
[2023-08-30 19:04] VITALS: BP 122/66; PULSE 91; RESP 21
--- NOTE | 2023-08-30 21:21 | XRAY ---
Indication: New atrial fibrillation. Multiple contiguous axial images obtained through the chest using 80 cc of Isovue-370 contrast and PE protocol. Comparison: March 01, 2023 Good opacification pulmonary arteries to include the lobar and segmental branches. No pulmonary embolus. Heart not enlarged again with scattered coronary calcifications. Aorta again moderately arteriosclerotic without aneurysm/dissection. No pathologic mediastinal/hilar lymphadenopathy. Lungs demonstrates mild diffuse pulmonary emphysema and mild bilateral dependent atelectasis. Grossly stable left upper lobe masslike opacity. No infiltrate or effusion. Bony thorax intact again with osteopenia, multilevel generative spondylosis, and remote T7/L1 endplate fractures. Limited upper abdomen unremarkable. Impression: 1. Negative pulmonary embolus. 2. Grossly stable left upper lobe masslike opacity. Again rule out malignancy. 2. Again chronic findings including pulmonary emphysema, arteriosclerotic disease, and chronic bony findings.
== END 2023-08-30 19:30 | disposition short-term general hospital (02) ==
LOC: ED 13:10
DX: J06.9 Acute upper respiratory infection, unspecified (principal); I48.20 Chronic atrial fibrillation, unspecified; R91.8 Other nonspecific abnormal finding of lung field; R53.1 Weakness; R11.10 Vomiting, unspecified; E78.5 Hyperlipidemia, unspecified; E11.9 Type 2 diabetes mellitus without complications; I10 Essential (primary) hypertension; Z79.84 Long term (current) use of oral hypoglycemic drugs; Z79.899 Other long term (current) drug therapy; Z20.828 Contact with and (suspected) exposure to other viral communicable diseases
CPT/HCPCS: 0241U; 36000; 36415; 70450; 71260; 80053; 81001; 82140; 83605; 83735; 83880; 84443; 84484; 85025; 85379; 85610; 86308; 87040; 87077; 87086; 87186; 93005; 93041; 94760; 96372; 99285; 99291; J1650; J1940